=== PATIENT | female | born 1945 | race Two or more races ===

== ENCOUNTER 2021-05-16 22:13 | Inpatient (IN) | payer MEDICARE, OTHER ==
[~2021-05-16] VITALS: Ht 149.9 cm; Wt 37.2 kg
--- NOTE | 2021-05-16 22:20 | NUR ---
PT BIBRA C/O SOB. PER EMS, PT HAS HAD SOB FOR YEARS, BUT TODAY IS WORSE. PT AAOX4 BREATHING QUICKLY WITH MILD DISRESS. PT SATURATING 100% ON 10L NRB. UPON ASSESSMENT, PT HAS LARGE HERNIA ON RT SIDE ABD. PT SKIN WARM AND DRY. 18G RT FA INITIATED BY EMS, BLOOD OBTAINED AND SENT TO LAB. PT ATTACHED TO MONITOR AND POX. PT GIVEN BLANKET AND CALL LIGHT WITHIN REACH
[2021-05-16] MEDS ORDERED: PIPERACILLIN /TAZOBACTAM 3.375 G VIAL IV ONE (23:41)
[2021-05-16 23:50] LABS: BASOPHILS % (AUTO) 0.3 % (0.0-2.0); HEMATOCRIT 34 % (33-45); HEMOGLOBIN 9.9 g/dL (11.5-14.8); LYMPHOCYTES # (AUTO) 1.2 K/uL (0.8-4.8); LYMPHOCYTES % (AUTO) 9.7 % (20.0-44.0); MEAN CORPUSCULAR HGB CONC 29 g/dl (31.0-36.0); MEAN CORPUSCULAR VOLUME 78 fL (82-100); MONOCYTES % (AUTO) 7.7 % (2.0-12.0); NEUTROPHILS # (AUTO) 10.4 K/uL (1.8-8.9); NEUTROPHILS % (AUTO) 81.3 % (43.0-81.0); PLATELET COUNT (AUTO) 463 K/uL (150-450); WHITE BLOOD COUNT (AUTO) 12.8 K/uL (4.3-11.0)
--- NOTE | 2021-05-16 23:50 | NUR ---
URINE SENT TO LAB
[2021-05-17] MEDS ORDERED: IV LR 1000 ML 1,000 ML BAG IV ONE
--- NOTE | 2021-05-17 00:05 | NUR ---
ABG RESULTS ON NASAL CANNULA 6LPM O2 PH 7.41 CO2 41.9 PO2 98.7 HCO3 26.1 BE 1.4 COPY OF ABG RESULTS PLACED IN PHYSICAL CHART.
--- NOTE | 2021-05-17 00:10 | NUR ---
COVID SWABS SENT TO LAB
--- NOTE | 2021-05-17 00:14 | NUR ---
XRAY AT BEDSIDE
[2021-05-17 00:31] LABS: BILIRUBIN,URINE NEGATIVE (NEGATIVE); COLOR,URINE YELLOW (YELLOW); LEUKOCYTE ESTERASE ,URINE NEGATIVE (NEGATIVE); NITRITE, URINE NEGATIVE (NEGATIVE); PH,URINE 5.5 (5.0-8.0); PROTEIN,URINE NEGATIVE (NEGATIVE); UGLUCOSE NEGATIVE (NEGATIVE); UROBILINOGEN,URINE 0.2 EU/dL (0.2)
[2021-05-17 00:34] LABS: CALCIUM, SERUM 9.9 mg/dL (8.5-10.1); CARBON DIOXIDE 24 mmol/L (21-32); CHLORIDE 103 mmol/L (98-107); CREATININE 0.5 mg/dL (0.6-1.3); GLUCOSE 190 mg/dL (74-106); POTASSIUM 4.3 mmol/L (3.5-5.1); SODIUM SERUM 139 mmol/L (136-145); UREA NITROGEN, BLOOD 16 mg/dL (7-18)
--- NOTE | 2021-05-17 00:46 | NUR ---
[facility]SA SWAB COLLECTED AND SENT TO LAB. PATIENT'S BELONGINGS LIST DONE.
[2021-05-17 00:49] LABS: ALANINE AMINOTRANSFERASE 14 U/L (12-78); ALBUMIN 2.8 g/dL (3.4-5.0); ALKALINE PHOSPHATASE 130 U/L (46-116); ASPARTATE AMINOTRANSFERASE 23 U/L (15-37); BILIRUBIN,DIRECT 0.1 mg/dL (0.0-0.2); BILIRUBIN,TOTAL 0.2 mg/dL (0.2-1.0); TOTAL PROTEIN, SERUM 7.7 g/dL (6.4-8.2)
[2021-05-17] MEDS ORDERED: IOHEXOL-350 100 ML VIAL IV ONE (02:09)
[2021-05-17] MEDS ORDERED: IV NS 0.9% 250 ML IV ONE (02:09)
--- NOTE | 2021-05-17 02:09 | NUR ---
MD VERBAL ORDER 2MG MORPHINE IVP
[2021-05-17] MEDS ORDERED: MORPHINE SULFATE INJ 2 MG/ML DISP.SYRIN ONE ×2 (02:10→03:57)
--- NOTE | 2021-05-17 02:50 | NUR ---
RETURNED FROM CT
[2021-05-17] MEDS ORDERED: MORPHINE SULFATE INJ 2 MG/ML DISP.SYRIN IV ONE (03:00)
--- NOTE | 2021-05-17 03:50 | NUR ---
CALLED [facility] TO VERIFY MEDICATIONS.
--- NOTE | 2021-05-17 03:50 | NUR ---
PER MORTGAGE LOAN REVIEWER ANASTASIA, OK TO GIVE PRN PAIN MEDS
[2021-05-17] MEDS ORDERED: ONDANSETRON HCL/PF 4 MG/2 ML VIAL IVP PRN (04:00)
[2021-05-17] MEDS ORDERED: MAGNESIUM HYDROXIDE 30 ML UDC PO PRN (04:00)
[2021-05-17] MEDS: MORPHINE SULFATE INJ 2 MG/ML DISP.SYRIN IV PRN ×2 (04:00→09:24)
[2021-05-17] MEDS ORDERED: ENOXAPARIN SODIUM 30 MG/0.3 ML DISP.SYRIN SQ SCH (04:00)
[2021-05-17] MEDS ORDERED: Z GUARD REMEDY 2 OZ OINT TP PRN (04:00)
[2021-05-17] MEDS ORDERED: ENOXAPARIN SODIUM 30 MG/0.3 ML DISP.SYRIN ONE (04:01)
--- NOTE | 2021-05-17 04:25 | NUR ---
PT SITTING QUIETLY, ATTACHED TO MONITOR AND POX. VSS
--- NOTE | 2021-05-17 05:16 | NUR ---
PT CHANGED, NEEDS MET
[2021-05-17 05:23] LABS: BASOPHILS % (AUTO) 0.3 % (0.0-2.0); EOSINOPHILS % (AUTO) 0.5 % (0.0-6.0); HEMATOCRIT 33 % (33-45); HEMOGLOBIN 9.8 g/dL (11.5-14.8); LYMPHOCYTES # (AUTO) 0.9 K/uL (0.8-4.8); LYMPHOCYTES % (AUTO) 8.8 % (20.0-44.0); MEAN CORPUSCULAR HGB CONC 30 g/dl (31.0-36.0); MEAN CORPUSCULAR VOLUME 77 fL (82-100); MONOCYTES % (AUTO) 9.4 % (2.0-12.0); NEUTROPHILS # (AUTO) 8.4 K/uL (1.8-8.9); PLATELET COUNT (AUTO) 393 K/uL (150-450); RED BLOOD CELL COUNT(AUTO) 4.26 MIL/uL (4.0-5.2); WHITE BLOOD COUNT (AUTO) 10.4 K/uL (4.3-11.0)
[2021-05-17 05:29] LABS: CHOLESTEROL 128 mg/dL (<200); HDL CHOLESTEROL 43 mg/dL (40-60); LDL 70 mg/dL (0-99); TRIGLYCERIDES 78 mg/dL (30-150)
[2021-05-17 05:34] LABS: CALCIUM, SERUM 9.8 mg/dL (8.5-10.1); CARBON DIOXIDE 29 mmol/L (21-32); CHLORIDE 106 mmol/L (98-107); CREATININE 0.5 mg/dL (0.6-1.3); GLUCOSE 92 mg/dL (74-106); POTASSIUM 4.1 mmol/L (3.5-5.1); SODIUM SERUM 140 mmol/L (136-145); UREA NITROGEN, BLOOD 15 mg/dL (7-18)
--- NOTE | 2021-05-17 05:35 | NUR ---
PT GOING TO 112 TELE.
[2021-05-17 05:51] LABS: PHOSPHORUS 3.3 mg/dL (2.5-4.9)
[2021-05-17 05:58] LABS: ABG BASE EXCESS 1.4 mmol/L; ABG PH 7.405 (7.350-7.450); ABG PO2 95.9 mmHg (75.0-100.0); MetHb 0.3 % (0.0-1.5); O2Hb 96.6 % (94.0-97.0); SITE, ABG Left Brachial
[2021-05-17] MEDS ORDERED: PIPERACILLIN /TAZOBACTAM 3.375 G in IV D5W 50 ML IV ONE ×2 (06:00)
--- NOTE | 2021-05-17 06:07 | NUR ---
GAVE REPORT TO RAO TREVIZO FOR DEISI
[2021-05-17] MEDS ORDERED: PIPERACILLIN /TAZOBACTAM 3.375 G VIAL IV ONE (06:09)
--- NOTE | 2021-05-17 06:49 | NUR ---
CALLED FRIEND, DEEDEE, TO SHIPPING PROCESSOR APARTMENT KEYS. PER DEEDEE, HE WILL ARRIVE AROUND 0900
--- NOTE | 2021-05-17 06:50 | NUR ---
FULFILLMENT MAIL CLERK NOTES, RECEIVED 79 YO FEMALE ADMITTED FROM ER DEPARTMENT VIA STRETCHER IN COMPANY OF 2 NURSES, UNDER MEDICAL SERVICES OF DR ANASTASIA FLEMING DNP, WITH ADMITTING DX ACUTE HYPOXIC RESPIRATORY FAILURE, ON 6LPM VIA CO 02 100%, 98.7, 115/68, 80, 24, NO SOB/ACUTE DISTRESS, IV SITE IN RIGHT FA 18G PATENT AND INTACT, VOID UPON ADMISSION, NOTED WITH A BIG ABDOMINAL HERNIA, WILL ENDORSE CONTINUITY OF CARE TO ONCOMING NURSE.
--- NOTE | 2021-05-17 07:30 | NUR ---
RN NOTE PATIENT OBSERVED IN AWAKE, ALERT AND ORIENTED X4, ABLE TO VERBALIZE NEEDS, ON O2 VIA NC @ 6LPM, O2 SAT 100% TOLERATING WELL, BREATHING EVEN AND UNLABORED, ON TELE MONITOR SR NO COMPLAINS OF CHEST PAIN, CONTINENT ON BOWEL AND BLADDER, WITH RIGHT FORE ARM GAUGE 18 PATENT INFUSING WELL, WILL MONITOR AM LABS, SAFETY MEASURES OBSERVED, CALL LIGHT WITHIN REACH, BED WHEELS LOCK, WILL CONTINUE PLAN OF CARE.
[2021-05-17 08:00] VITALS: BP 124/93
[2021-05-17] MEDS: PANTOPRAZOLE 40 MG TABLET.DR PO SCH (08:12)
[2021-05-17] MEDS: ALBUTEROL HALF STRENGTH 1.25 MG/3 ML VIAL.NEB NEB SCH ×5 (10:00→23:30)
--- NOTE | 2021-05-17 10:00 | NUR ---
RN NOTE PATIENT SEEN BY DR. ROJAS, UPDATED MD REGARDING PATIENT CURRENT CONDITION.
[2021-05-17] MEDS: IPRATROPIUM NEB FS 0.5 MG/2.5 ML AMPUL.NEB NEB SCH ×4 (11:06→23:30)
[2021-05-17 12:00] VITALS: BP 125/71
--- NOTE | 2021-05-17 12:30 | NUR ---
RN NOTE PATIENT SEEN BY DR. SIMENTAL, UPDATED REGARDING PATIENT CURRENT CONDITION.
[2021-05-17] MEDS: ZOSYN IVPB 3.375 G in IV D5W 50ml IV SCH ×3 (14:11→23:57)
--- NOTE | 2021-05-17 14:12 | NUR ---
RN NOTE ADMINISTERED ZOSYN 3.375G AT 1300, PHARMACIST BJORN NOTIFIED
--- NOTE | 2021-05-17 15:21 | NUR ---
RN NOTES PT A/O X4, CONSENTS SIGNED FOR ULTRASOUND GUIDED THORACENTESIS
[2021-05-17 16:00] VITALS: BP 111/59
--- NOTE | 2021-05-17 18:29 | NUR ---
RN NOTE PATIENT OBSERVED IN AWAKE, ALERT AND ORIENTED X4, ABLE TO VERBALIZE NEEDS, ON O2 VIA NC @ 6LPM, O2 SAT 100% TOLERATING WELL, BREATHING EVEN AND UNLABORED, ON TELE MONITOR SR NO COMPLAINS OF CHEST PAIN, CONTINENT ON BOWEL AND BLADDER, WITH RIGHT FORE ARM GAUGE 18 PATENT INFUSING WELL, CONSENT SIGNED FOR US GUIDED THORACENTHESIS, ON IV ATB NO ASE NOTED, HOLD HEPARIN ORDERED FOR PROCEDURE TOMORROW AM, CONTINUE O2 SUPPLEMNTATION. WILL MONITOR AM LABS, SAFETY MEASURES OBSERVED, CALL LIGHT WITHIN REACH, BED WHEELS LOCK, WILL CONTINUE PLAN OF CARE. WILL ENDORSE TO NOC SHIFT.
[2021-05-17 20:00] VITALS: BP 95/53
--- NOTE | 2021-05-17 20:05 | NUR ---
RT notes HHN TX not given due to pending Covid PRC results. Pt SpO2 99% on 6L O2. Will cont to monitor.
--- NOTE | 2021-05-17 21:00 | NUR ---
TRAINING AND DEVELOPMENT COORDINATOR OPENING NOTES: HUMIDIFIER IMPLEMENTED ONTO NC, TITRATED DOWN TO 4L, PATIENT SATURATION 100%.
--- NOTE | 2021-05-17 22:38 | NUR ---
LOGISTICIAN OPENING NOTES: RECEIVED PATIENT FROM DAY SHIFT, PATIENT IN BED, BED LOCKED AND IN LOWEST POSITION, PATIENT A/O X3, CALL LIGHT WITHIN REACH, SIDE RAILS UP X2, NO SIGNS OF DISTRESS, NO SOB, PATIENT ON 6L NC, HUMIDIFIER IMPLEMENTED. WILL CONTINUE TO MONITOR AND IMPLEMENT NURSING INTERVENTIONS APPROPRIATE. Addendum: 05/17/21 at 2241 by MONISHA MARTINEZ RN TIME WAS 1929 WHEN PATIENT WAS RECEIVED BY DAY SHIFT.
[2021-05-18] VITALS: BP 89/52
--- NOTE | 2021-05-18 01:34 | NUR ---
CONTACT LENS FITTER NOTES: PATIENT REPOSITIONED AT 0130 AND MEPILEX APPLIED TO SACRAL REDDENED AREA.
--- NOTE | 2021-05-18 01:35 | NUR ---
DAIRY FEED WORKER NOTES: PATIENT LINEN AND GOWN CHANGE AFTER CLEANING/BED BATH.
[2021-05-18] MEDS: IPRATROPIUM NEB FS 0.5 MG/2.5 ML AMPUL.NEB NEB SCH ×6 (03:28→22:58)
[2021-05-18] MEDS: ALBUTEROL HALF STRENGTH 1.25 MG/3 ML VIAL.NEB NEB SCH ×6 (03:28→22:58)
[2021-05-18 04:00] VITALS: BP 91/54
[2021-05-18] MEDS: ZOSYN IVPB 3.375 G in IV D5W 50ml IV SCH ×3 (05:00→17:08)
[2021-05-18] MEDS: ACETAMINOPHEN 325 MG TABLET PO PRN (05:46)
--- NOTE | 2021-05-18 06:08 | NUR ---
COTTAGE SUPERVISOR CLOSING NOTES: PATIENT IN BED, RESTING AND SLEEPING WELL, BLOOD PRESSURE 105/54 AT 0530, TEMPERATURE WNL, RR WNL, HR WNL, PATIENT COMPLAINS OF PAIN, HELD MORPHINE BUT GAVE TYLENOL INSTEAD, 650MG PO, IV SITE PATENT AND INTACT, PATIENT HAD TWO BM, TWO DIAPER CHANGES, BED LOCKED AND AT LOWEST POSITION, NC AT 3L WITH HUMIDIFIER, ZOSYN ADMINISTERED AT 0000 AND 0500, PATIENT SHOWS NO SOB OR DISTRESS, SIDE RAILS UP X2, CALL LIGHT WITHIN REACH, WILL CONTINUE TO MONITOR AND ENDORSE TO MORNING SHIFT NURSE.
--- NOTE | 2021-05-18 07:00 | NUR ---
RT Treatment not given due to pending COVID-19 results
--- NOTE | 2021-05-18 07:30 | NUR ---
RN NOTE RECEIVED PT ON BED HOB ELEVATED. NO SOB ON 3LPM O2 SAT 99%. A/A/OX4. NO PAIN NOTED. SR ON TELE MONITOR. TOLERATING SOFT DIET EATING WELL. RFA IV FLUSHES WELL. SCHEDULED FOR THORACENTESIS TODAY. SAFETY MEASURES OBSERVED. CALL LIGHT PLACED WITHIN REACH. WILL CONTINUE TO MONITOR.
[2021-05-18 07:41] LABS: BASOPHILS % (AUTO) 0.4 % (0.0-2.0); EOSINOPHILS % (AUTO) 2.7 % (0.0-6.0); HEMATOCRIT 28 % (33-45); HEMOGLOBIN 8.5 g/dL (11.5-14.8); LYMPHOCYTES # (AUTO) 0.8 K/uL (0.8-4.8); LYMPHOCYTES % (AUTO) 9.9 % (20.0-44.0); MEAN CORPUSCULAR HGB CONC 31 g/dl (31.0-36.0); MEAN CORPUSCULAR VOLUME 77 fL (82-100); MONOCYTES # (AUTO) 1.1 K/uL (0.1-1.30); MONOCYTES % (AUTO) 12.5 % (2.0-12.0); NEUTROPHILS # (AUTO) 6.3 K/uL (1.8-8.9); NEUTROPHILS % (AUTO) 74.5 % (43.0-81.0); PLATELET COUNT (AUTO) 326 K/uL (150-450); RED BLOOD CELL COUNT(AUTO) 3.64 MIL/uL (4.0-5.2); WHITE BLOOD COUNT (AUTO) 8.4 K/uL (4.3-11.0)
[2021-05-18] MEDS: PANTOPRAZOLE 40 MG TABLET.DR PO SCH (07:48)
[2021-05-18 07:49] LABS: ALANINE AMINOTRANSFERASE 9 U/L (12-78); ALBUMIN 2.4 g/dL (3.4-5.0); ALKALINE PHOSPHATASE 101 U/L (46-116); ASPARTATE AMINOTRANSFERASE 14 U/L (15-37); BILIRUBIN,TOTAL 0.4 mg/dL (0.2-1.0); CALCIUM, SERUM 9.6 mg/dL (8.5-10.1); CARBON DIOXIDE 29 mmol/L (21-32); CHLORIDE 107 mmol/L (98-107); CREATININE 0.5 mg/dL (0.6-1.3); GLUCOSE 82 mg/dL (74-106); MAGNESIUM 2.1 mg/dL (1.8-2.4); PHOSPHORUS 3.3 mg/dL (2.5-4.9); POTASSIUM 3.7 mmol/L (3.5-5.1); SODIUM SERUM 142 mmol/L (136-145); TOTAL PROTEIN, SERUM 6.6 g/dL (6.4-8.2); UREA NITROGEN, BLOOD 11 mg/dL (7-18)
[2021-05-18 08:00] VITALS: BP 99/57
[2021-05-18] MEDS: MORPHINE SULFATE INJ 2 MG/ML DISP.SYRIN IV PRN ×3 (08:56→21:42)
[2021-05-18] MEDS: ENSURE ENLIVE CHOC 237 ML CAN PO SCH ×3 (09:30→17:07)
--- NOTE | 2021-05-18 09:30 | NUR ---
RN NOTE RIGHT LUNG THORACENTESIS SPECIMEN FORWARDED TO LABORATORY
[2021-05-18 12:00] VITALS: BP 103/42
[2021-05-18 16:00] VITALS: BP 96/45
--- NOTE | 2021-05-18 16:34 | NUR ---
RN NOTE PER DR. ROJAS RIGHT CHEST TUBE INSERTION PIGTAIL CATHETER FOR TOMORROW AM. RADIOLOGY CALLED ORDERED TALKED TO THOR RE: RIGHT CHEST TUBE INSERTION WITH PIGTAIL CATHETER. PT ALERT, ORIENTED X4. SIGNED CONSENT FOR RIGHT CHEST TUBE INSERTION.
--- NOTE | 2021-05-18 18:30 | NUR ---
RN NOTE CONSENT FOR MODERATE SEDATION OBTAINED, AND FOR CT PERC DRAINAGE ABSCESS WITH CATHETER.
--- NOTE | 2021-05-18 18:58 | NUR ---
RN NOTE RECEIVED PT ON BED HOB ELEVATED. NO SOB ON 3LPM O2. A/A/OX4. NO PAIN NOTED. SR ON TELE MONITOR. TOLERATING SOFT DIET EATING WELL. RFA IV FLUSHES WELL. S/P THORACENTESIS TODAY WITH 650 OUTPUT. SCHEDULED FOR RIGHT CHEST TUBE INSERTION TOMORROW, CONSENT SIGNED. NPO POST MIDNIGHT INSTRUCTED.CALL LIGHT PLACED WITHIN REACH. SAFETY MEASURES OBSERVED. WILL ENDORSE TO NOC RN
[2021-05-18 20:00] VITALS: BP 102/53
--- NOTE | 2021-05-18 20:00 | NUR ---
RN OPENING NOTE: RECEIVED RESIDENT IN BED ALERT AND VERNALLY RESPONSIVE. ON 3l/MIN VIA N/C, O2 SAT 96%. NO SOB OR CHEST CONGESTION NOTED. BREATHING EVEN AND UNLABORED. NO FACIAL GRIMACING NOTED. NO S/S OF ACUTE RESPIRATORY DISTRESS. RESIDENT WILL BE NPO AFTER MIDNIGHT FOR CHEST TUBE PLACEMENT TOMORROW. BOTH SIDE RAILS UP TO PREVENT INJURY. ON LOW POSITION AND LOCKED. CALL LIGHT WITH IN REACH. WILL CONTINUE TO MONITOR
--- NOTE | 2021-05-18 20:05 | NUR ---
RT HHN tx not given due to pending PCR, no SOB or respiratory distress noted.
--- NOTE | 2021-05-18 22:30 | NUR ---
RN NOTES: PATIENT C/O 9/10 PAIN SCALE AROUND CHEST AREA. MORPHINE 2 MG IV PUSH GIVEN AND TOLERATED WELL. NO S/S OF ACUTE RESPIRATORY DISTRESS.
[2021-05-19] VITALS: BP 99/51
[2021-05-19] MEDS: ZOSYN IVPB 3.375 G in IV D5W 50ml IV SCH ×5 (00:39→23:11)
[2021-05-19] MEDS: ALBUTEROL HALF STRENGTH 1.25 MG/3 ML VIAL.NEB NEB SCH ×6 (03:20→22:48)
[2021-05-19] MEDS: IPRATROPIUM NEB FS 0.5 MG/2.5 ML AMPUL.NEB NEB SCH ×6 (03:20→22:48)
[2021-05-19 04:00] VITALS: BP 96/47
[2021-05-19] MEDS: MORPHINE SULFATE INJ 2 MG/ML DISP.SYRIN IV PRN ×4 (04:05→20:41)
--- NOTE | 2021-05-19 07:25 | NUR ---
RN CLOSING NOTES: RESIDENT IN BED ALERT AND VERBALLY RESPONSIVE. NO ACUTE RESPIRATORY DISTRESS. C/O PAIN AROUND CHEST AREA. MORPHINE GIVEN AT 0405 AND PATIENT TOLERATED WELL. NPO SINCE MIDNIGHT. WILL ENDORSE TO MORNING SHIFT FOR ANY CHANGES
[2021-05-19] MEDS: ENSURE ENLIVE CHOC 237 ML CAN PO SCH ×3 (07:28→17:34)
--- NOTE | 2021-05-19 07:34 | NUR ---
ROLLING MILL OPERATOR OPENING NOTE: RECEIVED PT IN BED ALERT AND RESPONSIVE. ON 3L N/C, O2 SAT 99%. NO SOB OR CHEST CONGESTION NOTED. BREATHING EVEN AND UNLABORED. NO FACIAL GRIMACING NOTED. NO S/S OF ACUTE RESPIRATORY DISTRESS. PT IS NPO FOR CHEST TUBE PLACEMENT. ALL SAFETY MEASURES RENDERED. SIDE RAILS UP X 3, BED IN LOWEST LOCKED POSITION, CALL LIGHT WITHIN REACH.
[2021-05-19 07:46] LABS: BASOPHILS % (AUTO) 0.4 % (0.0-2.0); EOSINOPHILS % (AUTO) 3.3 % (0.0-6.0); HEMATOCRIT 28 % (33-45); HEMOGLOBIN 8.5 g/dL (11.5-14.8); LYMPHOCYTES # (AUTO) 0.9 K/uL (0.8-4.8); LYMPHOCYTES % (AUTO) 10.9 % (20.0-44.0); MEAN CORPUSCULAR HGB CONC 30 g/dl (31.0-36.0); MEAN CORPUSCULAR VOLUME 76 fL (82-100); MONOCYTES % (AUTO) 11.5 % (2.0-12.0); NEUTROPHILS # (AUTO) 6.2 K/uL (1.8-8.9); NEUTROPHILS % (AUTO) 73.9 % (43.0-81.0); PLATELET COUNT (AUTO) 346 K/uL (150-450); RED BLOOD CELL COUNT(AUTO) 3.68 MIL/uL (4.0-5.2); WHITE BLOOD COUNT (AUTO) 8.4 K/uL (4.3-11.0)
[2021-05-19 08:00] VITALS: BP 102/60
[2021-05-19] MEDS: PANTOPRAZOLE 40 MG TABLET.DR PO SCH (08:15)
[2021-05-19 08:23] LABS: CALCIUM, SERUM 9.9 mg/dL (8.5-10.1); CARBON DIOXIDE 29 mmol/L (21-32); CHLORIDE 106 mmol/L (98-107); CREATININE 0.5 mg/dL (0.6-1.3); GLUCOSE 100 mg/dL (74-106); MAGNESIUM 2.1 mg/dL (1.8-2.4); PHOSPHORUS 3.1 mg/dL (2.5-4.9); POTASSIUM 3.9 mmol/L (3.5-5.1); SODIUM SERUM 142 mmol/L (136-145); UREA NITROGEN, BLOOD 14 mg/dL (7-18)
[2021-05-19 12:00] VITALS: BP 100/62
--- NOTE | 2021-05-19 13:57 | NUR ---
RN NOTES; PT LEFT FOR PROCEDURE WITH RADIOLOGY. ALL PAPERWORK SIGNED. VITALS WNL. PT LEFT IN STABLE CONDITION.
[2021-05-19] MEDS ORDERED: NALOXONE PREFILLED SYRINGE 2 MG/2 ML SYRINGE IV ONE (14:00)
[2021-05-19] MEDS ORDERED: MIDAZOLAM HCL 5MG/ML VIAL 25 MG/5 ML VIAL IV ONE (14:00)
[2021-05-19] MEDS ORDERED: FENTANYL PF 250MCG/5ML AMPUL IV ONE (14:00)
[2021-05-19 16:00] VITALS: BP 96/47
--- NOTE | 2021-05-19 18:41 | NUR ---
PIANO MOVER CLOSING NOTES PT. IS RESTING IN SUPINE POSITION ON LEFT SIDE. PT HAS NEW CHEST TUBE WITH R PIGTAIL CATHETER. PT ON SOFT DIET. ALL VITAL SIGNS ARE WITHIN NORMAL LIMITS. PT'S NEEDS WERE MET IN TIMELY FASHION. WILL ENDORSE TO INSULATION BOARD CALENDER OPERATOR NURSE. ALL SAFETY MEASURES ARE IN PLACE WITH BED IN LOWEST LOCKED POSITION AND CALL LIGHT WITHIN REACH.
--- NOTE | 2021-05-19 19:48 | NUR ---
HHN TX NOT GIVEN DUE TO PCR TEST PENDING.
[2021-05-19 20:00] VITALS: BP 103/66
--- NOTE | 2021-05-19 20:15 | NUR ---
RN NOTE RECEIVED PT IN BED, ALERT AND ORIENTED. PT COMPLAINED OF PAIN ON CHEST AREA WITH BREATHING. NO DISTRESS NOTED. PT WITH CHEST TUBE CONNECTED TO LOW INTERMITTENT SUCTION WITH SANGUINEOUS DRAINAGE. R ARM IV PATENT AND INTACT. ALL SAFETY MEASURES IN PLACE. WILL CONTINUE TO MONITOR.
[2021-05-20] VITALS: BP 95/55
[2021-05-20] MEDS: MORPHINE SULFATE INJ 2 MG/ML DISP.SYRIN IV PRN ×4 (02:05→20:31)
[2021-05-20] MEDS: ALBUTEROL HALF STRENGTH 1.25 MG/3 ML VIAL.NEB NEB SCH ×7 (03:30→23:51)
[2021-05-20] MEDS: IPRATROPIUM NEB FS 0.5 MG/2.5 ML AMPUL.NEB NEB SCH ×7 (03:30→23:51)
[2021-05-20 04:00] VITALS: BP 100/49
[2021-05-20] MEDS: ZOSYN IVPB 3.375 G in IV D5W 50ml IV SCH ×4 (05:09→23:55)
--- NOTE | 2021-05-20 07:05 | NUR ---
RN NOTE PT ABLE TO MAKE NEEDS KNOWN. NO CHANGES IN LOC NOTED. PT ABLE TO TOLERATE O2 AT 3L. PT WITH 700CC SANGUINEOUS OUTPUT FROM CHEST TUBE. NO DISTRESS NOTED. ALL SAFETY MEASURES MAINTAINED, ALL NEEDS ATTENDED. PT REFUSED TO HAVE TH DVT PUMP, EXPLAINED RISKS AND BENEFITS. PT VERBALIZES UNDERSTANDING. ENDORSED TO NEXT SHIFT NURSE FOR DEISI.
--- NOTE | 2021-05-20 07:10 | NUR ---
RN OPENING NOTES; RECEIVED PT AWAKE IN L SIDE LYING POS. PT A/OX4, NO SOB OR DISTRESS NOTED. PT HAS NO C/O PAIN AT THIS TIME. CHEST TUBE NOTED WITH DRAINAGE. SAFETY MEASURES RENDERED, BED IN LOWEST POS. LOCKED WITH CALL LIGHT WITHIN REACH. WILL CONTINUE TO MONITOR.
[2021-05-20] MEDS: PANTOPRAZOLE 40 MG TABLET.DR PO SCH (07:53)
[2021-05-20 08:00] VITALS: BP 98/58
[2021-05-20] MEDS: ENSURE ENLIVE CHOC 237 ML CAN PO SCH ×3 (08:00→17:08)
[2021-05-20 08:05] LABS: BASOPHILS % (AUTO) 0.3 % (0.0-2.0); CALCIUM, SERUM 9.8 mg/dL (8.5-10.1); CARBON DIOXIDE 29 mmol/L (21-32); CHLORIDE 106 mmol/L (98-107); CREATININE 0.5 mg/dL (0.6-1.3); EOSINOPHILS % (AUTO) 1.5 % (0.0-6.0); GLUCOSE 105 mg/dL (74-106); HEMATOCRIT 30 % (33-45); HEMOGLOBIN 8.7 g/dL (11.5-14.8); LYMPHOCYTES # (AUTO) 0.7 K/uL (0.8-4.8); LYMPHOCYTES % (AUTO) 8.6 % (20.0-44.0); MAGNESIUM 2.2 mg/dL (1.8-2.4); MEAN CORPUSCULAR HGB CONC 29 g/dl (31.0-36.0); MEAN CORPUSCULAR VOLUME 77 fL (82-100); NEUTROPHILS # (AUTO) 6.6 K/uL (1.8-8.9); NEUTROPHILS % (AUTO) 77.6 % (43.0-81.0); PLATELET COUNT (AUTO) 344 K/uL (150-450); POTASSIUM 3.8 mmol/L (3.5-5.1); RED BLOOD CELL COUNT(AUTO) 3.87 MIL/uL (4.0-5.2); SODIUM SERUM 141 mmol/L (136-145); UREA NITROGEN, BLOOD 13 mg/dL (7-18); WHITE BLOOD COUNT (AUTO) 8.5 K/uL (4.3-11.0)
[2021-05-20 12:00] VITALS: BP 110/64
[2021-05-20 16:00] VITALS: BP 98/63
--- NOTE | 2021-05-20 18:56 | NUR ---
RN CLOSING NOTES; PT IN BED IN SUPINE POS. PT A/OX4, NO SOB NOTED, NOT C/O SOB OR DISTRESS AT THIS TIME. PT ON 02 AT 3LPM, WITH 02 SAT AT 98%. CONTINUE DRAINAGE WITH R SIDE PIGTAIL CATHETER. CHEST X RAY ORDERED. WAITING FOR PLEURAL FLUID CYTOLOGY. ALL MEDICATIONS GIVEN AND TOLERATED WELL. PT KEPT CLEAN, DRY AND COMFORTABLE. ALL SAFETY MEASURES RENDERED, BED IN LOWEST POS. LOCKED, SIDE RAILS X3 UP, WITH CALL LIGHT WITHIN REACH. ENDORSED TO BULB GROWER RN, IN STABLE CONDITION.
--- NOTE | 2021-05-20 19:10 | NUR ---
RN NOTES RECEIVED REPORT FROM MORNING NURSE. PATIENT A/O X4. WITH CHEST TUBE CONNECTED TO L INTERMITTENT SUCTION DRAINING SANGUINOUS DRAINAGE. PATIENT COMPLAINTS OF PAIN.WITH IV ACCESS ON L ARM PATENT FLUSHES WELL. WITH OXYGEN INHALATION AT 3 LPM VIA NASAL CANULA. ALL SAFETY MEASURES IN PLACE, HOB ELEVATED, BED ON LOWEST POSITION AND LOCKED. CALL LIGHT WITHIN REACH. WILL CONTINUE TO MONITOR.
[2021-05-20 20:00] VITALS: BP 130/77
[2021-05-21] VITALS: BP 95/50
[2021-05-21] MEDS: MORPHINE SULFATE INJ 2 MG/ML DISP.SYRIN IV PRN ×6 (00:27→20:59)
[2021-05-21] MEDS: IPRATROPIUM NEB FS 0.5 MG/2.5 ML AMPUL.NEB NEB SCH ×6 (03:30→23:13)
[2021-05-21] MEDS: ALBUTEROL HALF STRENGTH 1.25 MG/3 ML VIAL.NEB NEB SCH ×6 (03:30→23:13)
[2021-05-21 04:00] VITALS: BP 100/62
[2021-05-21] MEDS: ZOSYN IVPB 3.375 G in IV D5W 50ml IV SCH ×4 (05:51→23:19)
--- NOTE | 2021-05-21 06:58 | NUR ---
RN NOTES PATIENT REMAINS STABLE THE WHOLE SHIFT, NO SOB NO DISTRESS. WITH R CHEST TUBE INTACT DRAINING WITH SANGUINEOUS FLUID. ALL DUE MEDS GIVEN ORDERED. ALL SAFETY MEASURES IN PLACE, HOB ELEVATED, CALL LIGHT WITHIN REACH. KEPT CLEAN AND DRY AT ALL TIMES. ENDORSED.
--- NOTE | 2021-05-21 07:00 | NUR ---
RN NOTES; RECEIVED PT ON BED, A/OX4, NO SOB OR DISTRESS NOTED. PT HAS NO C/O PAIN AT THIS TIME. CHEST TUBE NOTED WITH DRAINAGE. SAFETY MEASURES RENDERED, BED IN LOWEST POS. LOCKED WITH CALL LIGHT WITHIN REACH. WILL CONTINUE TO MONITOR CLOSELY.
[2021-05-21 07:04] LABS: BASOPHILS % (AUTO) 0.4 % (0.0-2.0); HEMATOCRIT 29 % (33-45); HEMOGLOBIN 8.7 g/dL (11.5-14.8); LYMPHOCYTES # (AUTO) 0.7 K/uL (0.8-4.8); LYMPHOCYTES % (AUTO) 7.2 % (20.0-44.0); MEAN CORPUSCULAR HGB CONC 30 g/dl (31.0-36.0); MEAN CORPUSCULAR VOLUME 78 fL (82-100); MONOCYTES % (AUTO) 10.5 % (2.0-12.0); NEUTROPHILS # (AUTO) 7.7 K/uL (1.8-8.9); NEUTROPHILS % (AUTO) 79.9 % (43.0-81.0); PLATELET COUNT (AUTO) 324 K/uL (150-450); RED BLOOD CELL COUNT(AUTO) 3.69 MIL/uL (4.0-5.2); WHITE BLOOD COUNT (AUTO) 9.6 K/uL (4.3-11.0)
[2021-05-21 07:21] LABS: CALCIUM, SERUM 10.3 mg/dL (8.5-10.1); CREATININE 0.6 mg/dL (0.6-1.3); MAGNESIUM 2.4 mg/dL (1.8-2.4); PHOSPHORUS 2.6 mg/dL (2.5-4.9)
[2021-05-21 08:00] VITALS: BP 90/44
[2021-05-21] MEDS: PANTOPRAZOLE 40 MG TABLET.DR PO SCH (08:25)
[2021-05-21] MEDS: ENSURE ENLIVE CHOC 237 ML CAN PO SCH ×3 (08:27→16:38)
[2021-05-21 12:00] VITALS: BP 101/48
--- NOTE | 2021-05-21 12:00 | NUR ---
RN NOTES CHEST TUBE INTACT, PT REQUESTING PAIN MED Q4 HOURS , CONTINUE PAIN MANAGEMENT.
[2021-05-21 16:00] VITALS: BP 96/52
--- NOTE | 2021-05-21 18:00 | NUR ---
RN NOTES NO SIGNIFICANT CHANGES NOTED ONT THIS SHIFT, 600 CC SEROSANGUINEOUS DRAINING OBTAINED FROM CHEST TUBE, DR AGUDELO NOTIFED,WILL ENDORSE TO FUSION JUNCTURE GRINDER NURSE FOR CONTINUITY OF CARE .
--- NOTE | 2021-05-21 19:25 | NUR ---
RN OPENING NOTE PT ON 3L OF O2 VIA NC, A/O X4, ON TELE MONITOR, NSR WITH ST ELEVATION. PT RESTING COMFORTABLY. NO DISTRESS NOTED. RIGHT UPPER CHEST TUBE/PIGTAIL CATH NOTED IN PT CONNECTED TO LOW INT SUCTION. NO SIGNS OF LEAK. PT IV SITE, INTACT, NO S.S OF INFILTRATION, WILL CONT TO MONITOR CLOSELY THROUGHOUT SHIFT. SAFETY MEASURES IN PLACE. HOB ELEVATED, SIDE RAILS UP X2 BED LOCKED IN LOWEST POSTION BED ALARM ON. CALL LIGHT WITHIN REACH, ALL NEEDS ATTENDED WILL CONT TO MONITOR.
[2021-05-21 20:00] VITALS: BP 103/57
[2021-05-22] VITALS: BP 90/47
[2021-05-22] MEDS: MORPHINE SULFATE INJ 2 MG/ML DISP.SYRIN IV PRN ×5 (01:00→20:56)
[2021-05-22] MEDS: ALBUTEROL HALF STRENGTH 1.25 MG/3 ML VIAL.NEB NEB SCH ×6 (03:29→22:49)
[2021-05-22] MEDS: IPRATROPIUM NEB FS 0.5 MG/2.5 ML AMPUL.NEB NEB SCH ×6 (03:29→22:49)
[2021-05-22 04:00] VITALS: BP 98/44
[2021-05-22] MEDS: ZOSYN IVPB 3.375 G in IV D5W 50ml IV SCH ×4 (05:24→23:10)
[2021-05-22 07:01] LABS: BASOPHILS % (AUTO) 0.6 % (0.0-2.0); EOSINOPHILS % (AUTO) 2.4 % (0.0-6.0); HEMATOCRIT 29 % (33-45); HEMOGLOBIN 8.6 g/dL (11.5-14.8); LYMPHOCYTES # (AUTO) 0.5 K/uL (0.8-4.8); LYMPHOCYTES % (AUTO) 6.8 % (20.0-44.0); MEAN CORPUSCULAR HGB CONC 29 g/dl (31.0-36.0); MEAN CORPUSCULAR VOLUME 78 fL (82-100); MONOCYTES # (AUTO) 0.8 K/uL (0.1-1.30); MONOCYTES % (AUTO) 10.6 % (2.0-12.0); NEUTROPHILS # (AUTO) 6.1 K/uL (1.8-8.9); NEUTROPHILS % (AUTO) 79.6 % (43.0-81.0); PLATELET COUNT (AUTO) 320 K/uL (150-450); RED BLOOD CELL COUNT(AUTO) 3.77 MIL/uL (4.0-5.2); WHITE BLOOD COUNT (AUTO) 7.7 K/uL (4.3-11.0)
[2021-05-22 07:19] LABS: CALCIUM, SERUM 10.3 mg/dL (8.5-10.1); CARBON DIOXIDE 31 mmol/L (21-32); CHLORIDE 106 mmol/L (98-107); CREATININE 0.4 mg/dL (0.6-1.3); GLUCOSE 110 mg/dL (74-106); MAGNESIUM 2.2 mg/dL (1.8-2.4); POTASSIUM 3.9 mmol/L (3.5-5.1); SODIUM SERUM 142 mmol/L (136-145); UREA NITROGEN, BLOOD 15 mg/dL (7-18)
--- NOTE | 2021-05-22 07:20 | NUR ---
RN OPENING NOTES RECEIVED RESTING IN BED. ON 3L OF O2 VIA NC. NO SOB OR ANY S/S OF ACUTE RESPIRATORY DISTRESS NOTED. TELE MONITOR READING NSR WITH ST ELEVATION. RIGHT UPPER CHEST TUBE/PIGTAIL CATH NOTED CONNECTED TO LOW INT SUCTION. NO SIGNS OF LEAK. IV ACCESS ON L HAND #22 INTACT, PATENT AND FLUSHED. SAFETY MEASURES IMPLEMENTED. CALL LIGHT WITHIN REACH. BED LOCKED AND IN LOWEST POSITION WITH SIDE RAILS UP X2. HOB ELEVATED, BED ALARM ON. WILL CONTINUE TO MONITOR.
--- NOTE | 2021-05-22 07:35 | NUR ---
RN CLOSING NOTE VSS. NO DISTRESS NOTED. CHEST TUBE 200ML OUTPUT. REPORT GIVEN TO DAY SHIFT RN FOR CONTINUATION OF CARE
[2021-05-22 08:00] VITALS: BP 97/51
[2021-05-22] MEDS: PANTOPRAZOLE 40 MG TABLET.DR PO SCH (09:04)
[2021-05-22] MEDS: ENSURE ENLIVE CHOC 237 ML CAN PO SCH ×3 (09:04→17:35)
[2021-05-22 12:00] VITALS: BP 104/61
[2021-05-22 16:00] VITALS: BP 118/68
--- NOTE | 2021-05-22 19:16 | NUR ---
RT NOTE PT STATED SHE HAS ALREADY HAD 5 TX AND DOESNT WANT THE OTHER 2 FOR THE NIGHT. GABRIELA TX WELL. NO SOB OR ACUTE RESPIRATORY DISTRESS NOTED. WILL CONTINUE TO MONITOR T/O SHIFT RAO GRANDA NOTIFIED.
--- NOTE | 2021-05-22 19:31 | NUR ---
RN CLOSING NOTES NO SIGNIFICANT CHANGES THROUGHOUT THE SHIFT. ALL DUE MEDS GIVEN. NEEDS ATTENDED. KEPT CLEAN AND COMFORTABLE. SAFETY MEASURES IMPLEMENTED. ENDORSED TO NIGHT RN FOR DEISI.
[2021-05-22 20:00] VITALS: BP 101/50
--- NOTE | 2021-05-22 20:03 | NUR ---
BULLET LUBRICANT MIXER OPENING NOTES: RECEIVED PATIENT FROM DAY SHIFT, PATIENT IN BED, A/O X4, NC ON 3L, NO SIGNS OF DISTRESS, NO SOB, SIDE RAILS UP X2, BED AT LOWEST POSITION, BRAKES LOCKED AND IN PLACE, CALL LIGHT WITHIN REACH, WILL CONTINUE TO MONITOR AND ADMINISTER PLAN OF CARE AND NURSING INTERVENTIONS NECESSARY.
[2021-05-23] VITALS: BP 131/76
[2021-05-23] MEDS: MORPHINE SULFATE INJ 2 MG/ML DISP.SYRIN IV PRN ×5 (02:30→20:56)
[2021-05-23] MEDS: IPRATROPIUM NEB FS 0.5 MG/2.5 ML AMPUL.NEB NEB SCH ×6 (02:33→23:28)
[2021-05-23] MEDS: ALBUTEROL HALF STRENGTH 1.25 MG/3 ML VIAL.NEB NEB SCH ×6 (02:34→23:28)
--- NOTE | 2021-05-23 02:34 | NUR ---
RT NOTE PT ASLEEP. REFUSED LAST TWO TX. SAID SHE WANTS TO SLEEP. NO SON OR S/S OF ACUTE RESPIRATORY DISTRESS. WILL CONTINUE TO MONITOR T/O SHIFT.
[2021-05-23 04:00] VITALS: BP 100/57
[2021-05-23] MEDS: ZOSYN IVPB 3.375 G in IV D5W 50ml IV SCH ×4 (05:22→23:44)
--- NOTE | 2021-05-23 06:56 | NUR ---
APPLICATIONS SUPPORT LEAD CLOSING NOTES: PATIENT AWAKE AND ALERT, V/S WNL, NO SIGNS OF DISTRESS, NO SOB, RUNNING NC AT 3L, BED AT LOWEST POSITION, BRAKES LOCKED, CALL LIGHT WITHIN REACH, PATIENT HAS CHEST TUBE, DRAINED 400 ML THROUGHOUT THE SUBSTATION ENGINEER, WILL ENDORSE TO DAY SHIFT NURSE. WILL CONTINUE TO MONITOR UNTIL CHANGE OF SHIFT.
[2021-05-23] MEDS: PANTOPRAZOLE 40 MG TABLET.DR PO SCH (07:30)
--- NOTE | 2021-05-23 07:37 | NUR ---
PLATE FURNACE OPERATOR OPENING NOTES RECEIVED PT AWAKE ALERT IN BED RESTING IN SEMI-FOWLERS POSITION WITH NO S/SX OF RESPIRATORY DISTRESS NOTED. PT HAS A RIGHT CHEST TUBE DRAINING WITH OUTPUT MEASURED @1700ML FOR PREVIOUS SHIFT. PT HAS A LEFT HAND 22G IV SALINE LOCK, FLUSHED PATENT AND IN TACT. PT HAS NO COMPLAINTS OF PAIN AT THIS TIME AND WAS LAST MEDICATED WITH PRN MORPHINE @0300. SAFETY MEASURES IN PLACE WITH BED IN LOWEST LOCKED POSITION, SIDE RAILS UP X2, AND CALL LIGHT WITHIN REACH.
[2021-05-23 08:00] VITALS: BP 109/57
[2021-05-23] MEDS: ENSURE ENLIVE CHOC 237 ML CAN PO SCH ×3 (08:23→17:33)
[2021-05-23 12:00] VITALS: BP 105/51
[2021-05-23 12:06] LABS: BASOPHILS % (AUTO) 0.3 % (0.0-2.0); EOSINOPHILS % (AUTO) 0.8 % (0.0-6.0); HEMATOCRIT 29 % (33-45); HEMOGLOBIN 8.8 g/dL (11.5-14.8); LYMPHOCYTES # (AUTO) 0.6 K/uL (0.8-4.8); LYMPHOCYTES % (AUTO) 7.1 % (20.0-44.0); MEAN CORPUSCULAR HGB CONC 30 g/dl (31.0-36.0); MEAN CORPUSCULAR VOLUME 77 fL (82-100); MONOCYTES # (AUTO) 0.7 K/uL (0.1-1.30); MONOCYTES % (AUTO) 7.8 % (2.0-12.0); NEUTROPHILS # (AUTO) 7.5 K/uL (1.8-8.9); PLATELET COUNT (AUTO) 329 K/uL (150-450); RED BLOOD CELL COUNT(AUTO) 3.81 MIL/uL (4.0-5.2); WHITE BLOOD COUNT (AUTO) 8.9 K/uL (4.3-11.0)
[2021-05-23 12:51] LABS: CALCIUM, SERUM 10.2 mg/dL (8.5-10.1); CARBON DIOXIDE 32 mmol/L (21-32); CHLORIDE 102 mmol/L (98-107); CREATININE 0.4 mg/dL (0.6-1.3); GLUCOSE 95 mg/dL (74-106); MAGNESIUM 2.4 mg/dL (1.8-2.4); PHOSPHORUS 2.9 mg/dL (2.5-4.9); POTASSIUM 3.4 mmol/L (3.5-5.1); SODIUM SERUM 139 mmol/L (136-145); UREA NITROGEN, BLOOD 16 mg/dL (7-18)
[2021-05-23 16:00] VITALS: BP 94/52
--- NOTE | 2021-05-23 18:35 | NUR ---
IMAGING ENGINEER CLOSING NOTES PT FINISHED DINNER AND IS RESTING LEFT SIDE LYING POSITION IN SEMI-FOWLERS POSITION. PT HAS A RIGHT FOREARM 22G SL. PT HAD OUTPUT OF 890ML SEROSANGUINEOUS DRAINAGE. PT LAST MEDICATED WITH PRN MORPHINE @1646. PT KEPT CLEAN AND DRY THROUGHOUT SHIFT. SAFETY MEASURES IN PLACE WITH BED IN LOW LOCKED POSITION, SIDE RAILS UP X2, AND CALL LIGHT WITHIN REACH.
[2021-05-23 20:00] VITALS: BP 110/62
--- NOTE | 2021-05-23 20:17 | NUR ---
RT pt refused neb tx. no sob, no resp distress noted at this time. haroon lyons, notified
--- NOTE | 2021-05-23 21:30 | NUR ---
EMERGENCY ROOM ORDERLY NOTES: PATIENTS R. FOREARM #22 CAME OUT ON IT'S OWN, REPLACED WITH RT. HAND #20.
--- NOTE | 2021-05-23 23:07 | NUR ---
MOBILE QA TESTER OPENING NOTES: RECEIVED PATIENT FROM DAY SHIFT, PATIENT IN BED, AWAKE, A/O X4, NO SIGNS OF SOB, NO DISTRESS, BED AT LOWEST POSITION, LOCKED AND IN PLACE, SIDE RAILS UP X2, CALL LIGHT WITHIN REACH, NC ON 3L, SATURATING 99%. WILL CONTINUE TO MONITOR AND ADMINISTER PLAN OF CARE AND NURSING INTERVENTIONS NECESSARY.
[2021-05-24] VITALS: BP 92/47
[2021-05-24] MEDS: MORPHINE SULFATE INJ 2 MG/ML DISP.SYRIN IV PRN ×5 (01:16→22:10)
[2021-05-24] MEDS: ALBUTEROL HALF STRENGTH 1.25 MG/3 ML VIAL.NEB NEB SCH ×6 (03:24→23:30)
[2021-05-24] MEDS: IPRATROPIUM NEB FS 0.5 MG/2.5 ML AMPUL.NEB NEB SCH ×6 (03:24→23:30)
[2021-05-24 04:00] VITALS: BP 94/43
[2021-05-24] MEDS: ZOSYN IVPB 3.375 G in IV D5W 50ml IV SCH ×3 (05:11→18:33)
--- NOTE | 2021-05-24 06:37 | NUR ---
PLANNER SCHEDULER CLOSING NOTES: PATIENT IN BED, RESTING, A/O X4, R. HAND #20 PLACED DUE TO DISLODGED R. FA #22, PATENT AND INTACT. ON NC AT 3L, SATURATION 93%, MORPHINE ADMINISTERED AT 2100, 0116, AND 0600. MONITOR SHOWS SR, BED AT LOWEST POSITION, BRAKES LOCKED AND IN PLACE, SIDE RAILS UP X2, CALL LIGHT WITHIN REACH, WILL ENDORSE TO DAY SHIFT NURSE, WILL CONTINUE TO MONITOR AND IMPLEMENT NURSING INTERVENTIONS NECESSARY.
[2021-05-24 07:22] LABS: BASOPHILS % (AUTO) 0.6 % (0.0-2.0); EOSINOPHILS % (AUTO) 3.3 % (0.0-6.0); HEMATOCRIT 29 % (33-45); HEMOGLOBIN 8.9 g/dL (11.5-14.8); LYMPHOCYTES # (AUTO) 0.9 K/uL (0.8-4.8); LYMPHOCYTES % (AUTO) 12.2 % (20.0-44.0); MEAN CORPUSCULAR HGB CONC 30 g/dl (31.0-36.0); MEAN CORPUSCULAR VOLUME 77 fL (82-100); MONOCYTES % (AUTO) 13.2 % (2.0-12.0); NEUTROPHILS # (AUTO) 5.3 K/uL (1.8-8.9); NEUTROPHILS % (AUTO) 70.7 % (43.0-81.0); PLATELET COUNT (AUTO) 338 K/uL (150-450); RED BLOOD CELL COUNT(AUTO) 3.83 MIL/uL (4.0-5.2); WHITE BLOOD COUNT (AUTO) 7.5 K/uL (4.3-11.0)
--- NOTE | 2021-05-24 07:30 | NUR ---
ANIMAL HUSBANDRY PROFESSOR OPENING NOTES PT IN BED, AOX4, ON 3L O2 NASAL CANULA, SATTING AT 97%, NO SOB, NO DISTRESS, SR HR 75 ON MONITOR, DENIES PAIN/CHEST DISCOMFORT, IN SEMI-FOWLERS POSITION, RIGHT CHEST TUBE DRAINING WITH OUTPUT MEASURED @350ML FOR DIRECTOR OF DEMENTIA OPERATIONS. MARKED. RIGHT HAND 20G FLUSHES WELL, SITE CLEAR, SKIN INTACT, ON PRN PAIN MEDICATIONS.POC DISCUSSED, VERBALIZED UNDERSTANDING. SOFT DIET, BEDBOUND. INDEPENDENT OF BED MOBILITY, SAFETY MEASURES IN PLACE WITH BED IN LOWEST LOCKED POSITION, SIDE RAILS UP X2, AND CALL LIGHT WITHIN REACH. WILL CONT TO MONITOR
[2021-05-24 07:39] LABS: CALCIUM, SERUM 10.2 mg/dL (8.5-10.1); CREATININE 0.6 mg/dL (0.6-1.3); MAGNESIUM 2.3 mg/dL (1.8-2.4); POTASSIUM 4.1 mmol/L (3.5-5.1)
--- NOTE | 2021-05-24 07:45 | NUR ---
RT Pt is awake/alert and refusing HHN tx at this time, no SOB or respiratory distress noted. Addendum: 05/24/21 at 0745 by LENO SINGH RT Amended: Links added.
[2021-05-24 08:00] VITALS: BP 103/56
[2021-05-24] MEDS: PANTOPRAZOLE 40 MG TABLET.DR PO SCH (08:45)
[2021-05-24] MEDS: ENSURE ENLIVE CHOC 237 ML CAN PO SCH ×3 (08:45→18:34)
--- NOTE | 2021-05-24 09:30 | NUR ---
RN NOTES DUE MEDS GIVEN.
--- NOTE | 2021-05-24 11:34 | NUR ---
RT Pt is awake/alert and refusing HHN tx at this time, no SOB or respiratory distress noted.
[2021-05-24 12:00] VITALS: BP 95/49
--- NOTE | 2021-05-24 13:42 | NUR ---
DR. ROJAS ORDER ROUTINE CT CHEST W/O, RN (VIKTORIYA) WILL CALL US BACK WHEN READY.
--- NOTE | 2021-05-24 15:14 | NUR ---
RT Pt is awake/alert and refusing HHN tx at this time, no SOB or respiratory distress noted.
[2021-05-24 16:00] VITALS: BP 100/48
--- NOTE | 2021-05-24 19:14 | NUR ---
LOAN REVIEWER CLOSING NOTES PT RESTING COMFORTABLY. AOX4, ON 3L O2 NASAL CANULA, SATTING AT 98%, NO SOB, NO DISTRESS, SR HR 79 ON MONITOR, DENIES PAIN/CHEST DISCOMFORT, IN SEMI-FOWLERS POSITION, RIGHT CHEST TUBE DRAINING WITH OUTPUT MEASURED @500ML. MARKED. RIGHT RFA 20G FLUSHES WELL, SITE CLEAR, SKIN INTACT, ON PRN PAIN MEDICATIONS. SOFT DIET, BEDBOUND. INDEPENDENT OF BED MOBILITY, SAFETY MEASURES IN PLACE WITH BED IN LOWEST LOCKED POSITION, SIDE RAILS UP X2, AND CALL LIGHT WITHIN REACH. ALL NEEDS MET AT THIS TIME. WILL ENDORSE TO NEXT SHIFT FOR DEISI.
--- NOTE | 2021-05-24 19:25 | NUR ---
Pt. is refusing Tx at this time. No SOB or Respiratory distress noted.
--- NOTE | 2021-05-24 19:26 | NUR ---
Pt. is awake and alert and refusing Tx at this time. No SOB or Respiratory distress noted. Addendum: 05/24/21 at 1927 by BRANDON HALL RT Amended: Links added.
--- NOTE | 2021-05-24 19:35 | NUR ---
RN NOTE PT RECEIVED IN BED RESTING COMFORTABLY. PT IS ON 3L OF 02 VIA NC SHOWING NO S/S OF RESP DISTRESS. BREATHING EVEN AND UNLABORED. ALERT AND ORIENTED X4. IN SEMI-MCDUFFIE'S POSITION WITH CHEST TUBE NOTED ON RIGHT UPPER CHEST. ON LEGAL CONSULTANT SHOWING NSR. SKIN INTACT. ON SOFT DIET. IV ACCESS NOTED ON RIGHT FA #20. LINE FLUSHED, PATENT, AND INTACT WITH NO SIGNS OF INFILTRATION. ALL SAFETY MEASURES IMPLEMENTED. CALL LIGHT WITHIN REACH. BED ALARM ON. BED LOCKED AND IN LOWEST POSITION. SIDE RAILS UP. WILL CONTINUE TO MONITOR AND ASSESS FOR ANY CHANGES DURING SHIFT.
[2021-05-24 20:00] VITALS: BP 99/48
[2021-05-24] MEDS ORDERED: TDAP [DIPH/PERTUSSIS/TET] 0.5 ML VIAL IM ONE (20:43)
[2021-05-25] VITALS: BP 113/64
[2021-05-25] MEDS: ZOSYN IVPB 3.375 G in IV D5W 50ml IV SCH ×4 (00:26→17:05)
--- NOTE | 2021-05-25 00:27 | NUR ---
Pt. is refusing Tx at this time. No SOB or Respiratory distress noted. Addendum: 05/25/21 at 0028 by BRANDON HALL RT Amended: Links added.
[2021-05-25] MEDS: MORPHINE SULFATE INJ 2 MG/ML DISP.SYRIN IV PRN ×5 (02:21→21:13)
[2021-05-25] MEDS: IPRATROPIUM NEB FS 0.5 MG/2.5 ML AMPUL.NEB NEB SCH ×6 (03:30→23:30)
[2021-05-25] MEDS: ALBUTEROL HALF STRENGTH 1.25 MG/3 ML VIAL.NEB NEB SCH ×6 (03:30→23:30)
--- NOTE | 2021-05-25 03:44 | NUR ---
Pt. is refusing Tx at this time. No SOB or respiratory distress noted. Addendum: 05/25/21 at 0344 by BRANDON HALL RT Amended: Links added.
[2021-05-25 04:00] VITALS: BP 101/53
--- NOTE | 2021-05-25 07:30 | NUR ---
COMB FIXER OPENING NOTE RECEIVED PT AWAKE IN BED. A/O X4. PT ON 3LPM O2 VIA NC TOLERATING WELL. NO SOB OR S/S OF RESPIRATORY DISTRESS NOTED. PT ON EXTERNAL PANELBEATER READING SR. PT HAS NO C/O PAIN OR DISCOMFORT AT THIS TIME. IV ACCESS IN RFA #20, INTACT AND PATENT. SAFETY PRECAUTIONS MAINTAINED. BED IN LOWEST LOCKED POSITION, HOB ELEVATED, SIDE RAILS UP X2. CALL LIGHT AND TABLE WITHIN REACH. WILL CONTINUE TO MONITOR.
[2021-05-25] MEDS: PANTOPRAZOLE 40 MG TABLET.DR PO SCH (07:44)
[2021-05-25 08:00] VITALS: BP 86/38
[2021-05-25 08:05] LABS: BASOPHILS # (AUTO) 0.1 K/uL (0.0-0.2); BASOPHILS % (AUTO) 0.7 % (0.0-2.0); EOSINOPHILS % (AUTO) 2.4 % (0.0-6.0); HEMATOCRIT 29 % (33-45); HEMOGLOBIN 8.5 g/dL (11.5-14.8); LYMPHOCYTES # (AUTO) 0.8 K/uL (0.8-4.8); LYMPHOCYTES % (AUTO) 9.8 % (20.0-44.0); MEAN CORPUSCULAR HGB CONC 30 g/dl (31.0-36.0); MEAN CORPUSCULAR VOLUME 77 fL (82-100); MONOCYTES # (AUTO) 0.9 K/uL (0.1-1.30); NEUTROPHILS # (AUTO) 5.9 K/uL (1.8-8.9); NEUTROPHILS % (AUTO) 75.1 % (43.0-81.0); PLATELET COUNT (AUTO) 363 K/uL (150-450); RED BLOOD CELL COUNT(AUTO) 3.74 MIL/uL (4.0-5.2); WHITE BLOOD COUNT (AUTO) 7.9 K/uL (4.3-11.0)
[2021-05-25 08:49] LABS: CALCIUM, SERUM 10.2 mg/dL (8.5-10.1); CARBON DIOXIDE 32 mmol/L (21-32); CHLORIDE 103 mmol/L (98-107); CREATININE 0.5 mg/dL (0.6-1.3); GLUCOSE 107 mg/dL (74-106); MAGNESIUM 2.3 mg/dL (1.8-2.4); PHOSPHORUS 3.1 mg/dL (2.5-4.9); POTASSIUM 3.6 mmol/L (3.5-5.1); SODIUM SERUM 138 mmol/L (136-145); UREA NITROGEN, BLOOD 18 mg/dL (7-18)
[2021-05-25] MEDS: ENSURE ENLIVE CHOC 237 ML CAN PO SCH ×3 (09:06→16:15)
[2021-05-25 12:00] VITALS: BP 102/58
[2021-05-25 16:00] VITALS: BP 99/47
[2021-05-25 17:56] LABS: IRON, SERUM 17 ug/dl (50-175); TOTAL IRON BINDING CAPACITY 244 ug/dl (250-450)
--- NOTE | 2021-05-25 18:34 | NUR ---
PRIMING MIXTURE CARRIER CLOSING NOTE PT IS AWAKE IN BED. A/O X4. PT ON 3LPM O2 VIA NC TOLERATING WELL. NO SOB OR S/S OF RESPIRATORY DISTRESS NOTED. PT ON EXTERNAL MANAGER ENVIRONMENTAL SERVICES READING SR. PT HAS NO C/O PAIN OR DISCOMFORT AT THIS TIME. IV ACCESS IN RFA #20, INTACT AND PATENT. RIGHT CHEST TUBE INTACT DRAINING WITH OUTPUT OF 50CC DURING SHIFT. ALL NEEDS HAVE BEEN MET. SAFETY PRECAUTIONS MAINTAINED AT ALL TIMES. BED IN LOWEST LOCKED POSITION, HOB ELEVATED, SIDE RAILS UP X2. CALL LIGHT AND TABLE WITHIN REACH. WILL ENDORSE TO ONCOMING NURSE FOR DEISI. Addendum: 05/25/21 at 1939 by GRAYSON GLODSMITH RN PRIMING MIXTURE CARRIER CLOSING NOTE PT IS AWAKE IN BED. A/O X4. PT ON 3LPM O2 VIA NC TOLERATING WELL. NO SOB OR S/S OF RESPIRATORY DISTRESS NOTED. PT ON EXTERNAL MANAGER ENVIRONMENTAL SERVICES READING SR. PT HAS NO C/O PAIN OR DISCOMFORT AT THIS TIME. IV ACCESS IN RFA #20, INTACT AND PATENT. RIGHT CHEST TUBE INTACT DRAINING WITH OUTPUT OF 730CC DURING SHIFT. ALL NEEDS HAVE BEEN MET. SAFETY PRECAUTIONS MAINTAINED AT ALL TIMES. BED IN LOWEST LOCKED POSITION, HOB ELEVATED, SIDE RAILS UP X2. CALL LIGHT AND TABLE WITHIN REACH. WILL ENDORSE TO ONCOMING NURSE FOR DEISI.
--- NOTE | 2021-05-25 19:30 | NUR ---
RN OPENING NOTE RECEIVED PATIENT IN BED. A/OX3. ON OXYGEN 3L/MIN VIA NASAL CANULA. RESPIRATIONS ARE EVEN AND UNLABORED. PATIENT HAS A CHEST TUBE. OUTPUT SANGUINOUS. C/O PAIN AT THIS TIME, INFORMED HER HER PAIN MEDICATION IS NOT DUE AT THIS TIME. PATIENT IS UPSET. NO DISTRESS. IV ACCESS IN RFA#20 PATENT AND SALINE LOCKED. BED IS LOW AND LOCKED, HOB ELEVATED IN SEMI FOWLERS, SIDE RIALS UP X3, CALL LIGHT WITHIN REACH.
[2021-05-25 20:00] VITALS: BP 106/56
[2021-05-26] VITALS: BP 92/47
--- NOTE | 2021-05-26 | NUR ---
RT NOTE PATIENT REFUSED HHN TX AT THIS TIME. NO RESPIRATORY DISTRESS NOTED. PRIMARY RN IS AWARE.
[2021-05-26] MEDS: ZOSYN IVPB 3.375 G in IV D5W 50ml IV SCH ×3 (00:19→11:49)
--- NOTE | 2021-05-26 02:13 | NUR ---
RN NOTE INFORMED DR. BASS THAT PATIENT BP IS 92/47, HAS CHEST TUBE, REQUESTING MORPHINE. RECEIVED ORDERS FOR 500ML NS BOLUS THEN GIVE MORPHINE. ALSO RECEIVED ORDER FOR STAT CMP, IF ALBUMIN IS LESS THAN 2 THEN REPAGE MD. ALSO RECEIVED ORDER FOR MIDODRINE 10MG Q8HR PRN IS SBP LESS THAN 90. ORDERS READ BACK NOTED AND CARRIED OUT. LAB CALLED TO INFORM OF STAT LAB DRAW FOR CMP.
--- NOTE | 2021-05-26 02:17 | NUR ---
RN NOTE CALLED [facility] TO VERIFY MEDS.
[2021-05-26] MEDS ORDERED: MIDODRINE HCL (5MG) 5 MG TABLET PO PRN (02:30)
[2021-05-26] MEDS ORDERED: IV NS 0.9% 500 ML IV ONE (02:30)
[2021-05-26 02:53] LABS: CALCIUM, SERUM 9.9 mg/dL (8.5-10.1); CARBON DIOXIDE 33 mmol/L (21-32); CHLORIDE 102 mmol/L (98-107); CREATININE 0.5 mg/dL (0.6-1.3); GLUCOSE 126 mg/dL (74-106); POTASSIUM 3.6 mmol/L (3.5-5.1); SODIUM SERUM 137 mmol/L (136-145); UREA NITROGEN, BLOOD 20 mg/dL (7-18)
[2021-05-26 03:01] LABS: ALANINE AMINOTRANSFERASE 10 U/L (12-78); ALKALINE PHOSPHATASE 92 U/L (46-116); ASPARTATE AMINOTRANSFERASE 11 U/L (15-37); BILIRUBIN,TOTAL 0.2 mg/dL (0.2-1.0)
[2021-05-26 03:02] LABS: ALBUMIN 2.4 g/dL (3.4-5.0); TOTAL PROTEIN, SERUM 6.8 g/dL (6.4-8.2)
--- NOTE | 2021-05-26 03:05 | NUR ---
RN NOTE IV INFILTRATED. STARTED NEW IV IN LFA#20 RUNNING THE BOLUS NOW. Addendum: 05/26/21 at 0308 by JAYLENE GALLO RN ALSO CHANGED CHEST TUBE SYSTEM. OUTPUT IS 210 CC SANGUINOUS.
[2021-05-26] MEDS: ALBUTEROL HALF STRENGTH 1.25 MG/3 ML VIAL.NEB NEB SCH ×6 (03:30→23:21)
[2021-05-26] MEDS: IPRATROPIUM NEB FS 0.5 MG/2.5 ML AMPUL.NEB NEB SCH ×6 (03:30→23:21)
[2021-05-26 04:00] VITALS: BP 93/56
[2021-05-26] MEDS: MORPHINE SULFATE INJ 2 MG/ML DISP.SYRIN IV PRN ×4 (04:01→20:53)
--- NOTE | 2021-05-26 04:02 | NUR ---
RT NOTE PATIENT REFUSED HHN TX AT THIS TIME. NO RESPIRATORY DISTRESS NOTED AT THIS TIME. PRIMARY RN IS AWARE.
[2021-05-26] MEDS: PANTOPRAZOLE 40 MG TABLET.DR PO SCH (07:30)
[2021-05-26 08:00] VITALS: BP 90/45
--- NOTE | 2021-05-26 08:08 | NUR ---
RN CLOSING NOTE PATIENT RESTING IN BED. A/OX3. REMAINS ON OXYGEN 3L/MIN VIA NASAL CANULA. NO RESP DISTRESS. CHEST TUBE OUTPUT 360ML, SANGUINOUS, CHEST TUBE CHAMBER CHANGED DURING SHIFT WITH NO COMPLICATIONS.MANAGED PAIN WITH MORPHINE THROUGHOUT SHIFT.IV ACCESS CHANGED TO THE LFA#20. BED REMAINS LOW AND LOCKED, HOB ELEVATED IN SEMI FOWLERS, SIDE RIALS UP X3, CALL LIGHT WITHIN REACH. WILL ENDORSE TO ONCOMING SHIFT.
--- NOTE | 2021-05-26 08:08 | NUR ---
SHOE LAY OUT PLANNER OPENING NOTES RECEIVED PT AWAKE RESTING IN BED,VERBALLY RESPONSIVE. NO S/SX OF RESPIRATORY DISTRESS NOTED. RIGHT CHEST TUBE DRAINING WELL. PT HAS A LFA G20 IV SALINE LOCK, FLUSHED PATENT AND IN TACT. PT HAS NO COMPLAINTS OF PAIN AT THIS TIME. SAFETY MEASURES IN FOLLOWED AND CALL LIGHT WITHIN REACH.
[2021-05-26 08:17] LABS: BASOPHILS # (AUTO) 0.1 K/uL (0.0-0.2); BASOPHILS % (AUTO) 0.7 % (0.0-2.0); EOSINOPHILS % (AUTO) 2.7 % (0.0-6.0); HEMATOCRIT 27 % (33-45); HEMOGLOBIN 8.3 g/dL (11.5-14.8); LYMPHOCYTES # (AUTO) 0.8 K/uL (0.8-4.8); LYMPHOCYTES % (AUTO) 10.5 % (20.0-44.0); MEAN CORPUSCULAR HGB CONC 30 g/dl (31.0-36.0); MEAN CORPUSCULAR VOLUME 77 fL (82-100); MONOCYTES # (AUTO) 0.9 K/uL (0.1-1.30); MONOCYTES % (AUTO) 10.8 % (2.0-12.0); NEUTROPHILS # (AUTO) 6.1 K/uL (1.8-8.9); NEUTROPHILS % (AUTO) 75.3 % (43.0-81.0); PLATELET COUNT (AUTO) 369 K/uL (150-450); RED BLOOD CELL COUNT(AUTO) 3.57 MIL/uL (4.0-5.2); WHITE BLOOD COUNT (AUTO) 8.1 K/uL (4.3-11.0)
[2021-05-26 08:23] LABS: CALCIUM, SERUM 9.7 mg/dL (8.5-10.1); CARBON DIOXIDE 31 mmol/L (21-32); CHLORIDE 104 mmol/L (98-107); CREATININE 0.4 mg/dL (0.6-1.3); GLUCOSE 99 mg/dL (74-106); MAGNESIUM 2.3 mg/dL (1.8-2.4); POTASSIUM 3.4 mmol/L (3.5-5.1); SODIUM SERUM 138 mmol/L (136-145); UREA NITROGEN, BLOOD 16 mg/dL (7-18)
[2021-05-26] MEDS: ENSURE ENLIVE CHOC 237 ML CAN PO SCH ×3 (08:24→18:09)
--- NOTE | 2021-05-26 08:24 | NUR ---
RN NOTE PT REFUSED AM MEDS PANTOPRAZOLE, DESPITE EXPLAINING RISK AND BENEFITS OF MEDICATION.
[2021-05-26] MEDS ORDERED: POTASSIUM CHLORIDE 20 MEQ POWDER PACKET PO ONE (11:00)
[2021-05-26 12:00] VITALS: BP 92/53
[2021-05-26] MEDS: SOD FERRIC GLUC 125 MG in IV NS 0.9% 100 ML IV SCH (14:28)
[2021-05-26 16:00] VITALS: BP 98/43
[2021-05-26 20:00] VITALS: BP 105/63
--- NOTE | 2021-05-26 20:01 | NUR ---
RN OPENING NOTES RECEIVED PATIENT ON BED AWAKE, ALERT AND VERBALLY RESPONSIVE, RESPIRATOEY EVEN AND UNLABORED, NO SOB, NO COUGH NOTED. NOTED ON OXYGEN AT 3LPM VIA NASAL CANNULA. HEAD OF BED ELEVATED SEMI FOWLERS. DENIES PAIN AT THIS TIME. NOTED TO BE ON CHEST TUBE ON RIGHT LATERAL BODY AND NOTED WITH DARK RED DRAINAGE. NO BLEEDING AT SITE, NO BUBBLING AT WATER CHAMBER. NOTED ON CONTINUOS SUCTION AT -20CM, RECEIVED WITH 410 ML OF DRAINAGE. NOTED WITH LEFT FOREARM #20 PERIPHERAL LINE, FLUSHED WITH NS, PATENT, NO INFILTRATION AT THE SITE. BED LOW IN LOCKED POSITION. BED ALARM ARMED. CALL LIGHT WITH IN REACH.
--- NOTE | 2021-05-26 20:01 | NUR ---
RT NOTE PT RECEIVED AWAKE/ALERT ON 32% NASAL CANNULA. PT REFUSED TX AT THIS TIME. RN BETTYE AWARE. NO RESPIRATORY DISTRESS NOTED AT THIS TIME. WILL MONITOR.
--- NOTE | 2021-05-26 20:04 | NUR ---
RN CLOSING NOTE PT IS AWAKE RESTING IN BED. A/O X4. PT ON 3LPM O2 VIA NC. NO SOB NOTED. PT ON EXTERNAL SENIOR COMMISSARY AGENT READING SR. IV ACCESS IN RFA #20, INTACT AND PATENT. RIGHT CHEST TUBE INTACT DRAINING WITH OUTPUT OF 50CC DURING SHIFT. SAFETY PRECAUTIONS FOLLOWED BED IN LOWEST LOCKED POSITION, HOB ELEVATED, SIDE RAILS UP X2. CALL LIGHT AND TABLE WITHIN REACH. WILL ENDORSE TO ONCOMING NURSE FOR DEISI.
--- NOTE | 2021-05-26 20:54 | NUR ---
RN NOTES PATIENT REQUESTING PAIN MEDICATION, PATIENT STATES PAIN IS ON HER CHEST NON RADIATING AND COMES AND GOES. RATE PAIN 8/10, PATIENT STATES PAIN IS TOLERABLE. PATIENT ON TELEMETRY SINUS RHYTHM AT 77 BPM, VITAL SIGNS WNL. ADMINISTERED MORPHINE 2MG/ML PER MD'S ORDER. WILL CONTINUE TO MONITOR. CALL LIGHT WITH IN REACH.
--- NOTE | 2021-05-26 23:22 | NUR ---
RT NOTE PT REFUSING TX AT THIS TIME. NO RESPIRATORY DISTRESS NOTED. RN NOTIFIED.
[2021-05-27] VITALS (8 sets, daily range): BP systolic 93–113; BP diastolic 53–63
--- NOTE | 2021-05-27 02:30 | NUR ---
RN NOTES PATIENT REQUESTING FOR PAIN MEDICATION, STATES SHE HAS PAIN IN HER CHEST/ LOWER EPIGASTRIC AREA THAT COMES AND GOES, NON RADIATING, DENIES BURNING SENSATION. MORPHINE PULLED OUT BUT RETURN PATIENT REFUSED PRIOR TO ADMINISTRATION. WILL CONTINUE TO MONITOR.
[2021-05-27] MEDS: ALBUTEROL HALF STRENGTH 1.25 MG/3 ML VIAL.NEB NEB SCH ×6 (03:30→23:30)
[2021-05-27] MEDS: IPRATROPIUM NEB FS 0.5 MG/2.5 ML AMPUL.NEB NEB SCH ×6 (03:30→23:30)
--- NOTE | 2021-05-27 03:45 | NUR ---
RT NOTE PT REFUSED TX X 3. EXPLAINED RISKS AND BENEFITS. RAO WEN NOTIFIED.
[2021-05-27] MEDS: MORPHINE SULFATE INJ 2 MG/ML DISP.SYRIN IV PRN ×6 (04:08→23:59)
--- NOTE | 2021-05-27 04:08 | NUR ---
RN NOTE PATIENT REQUESTING FOR PAIN MEDICATION. STATES PAIN IS IN MEDIAL CHEST AND PAIN COMES AND GOES. DENIES RADIATING PAIN. RATES PAIN 8/10. ASSISTED WITH TURNING AND REPOSITIONING. ADMINISTERED MORPHINE 2 MG/ML PER MD ORDER. VIA IVP, NO INFILTRATION NOTED. VITAL SIGNS WITHIN NORMAL LIMITS. CALL LIGHT WITHIN REACH, WILL CONTINUE TO MONITOR.
--- NOTE | 2021-05-27 06:30 | NUR ---
RN NOTE PATIENT TRANSFERRED TO 3W PER ACLS PROTOCOL IN STABLE CONDITION. REPORT GIVEN TO RAO BECKHAM, FOR CONTINUITY OF CARE.
[2021-05-27 06:48] LABS: BASOPHILS # (AUTO) 0.1 K/uL (0.0-0.2); BASOPHILS % (AUTO) 0.5 % (0.0-2.0); EOSINOPHILS % (AUTO) 2.9 % (0.0-6.0); HEMATOCRIT 30 % (33-45); HEMOGLOBIN 8.8 g/dL (11.5-14.8); LYMPHOCYTES # (AUTO) 0.9 K/uL (0.8-4.8); LYMPHOCYTES % (AUTO) 9.5 % (20.0-44.0); MEAN CORPUSCULAR HGB CONC 30 g/dl (31.0-36.0); MEAN CORPUSCULAR VOLUME 77 fL (82-100); MONOCYTES # (AUTO) 1.1 K/uL (0.1-1.30); MONOCYTES % (AUTO) 11.4 % (2.0-12.0); NEUTROPHILS # (AUTO) 7.1 K/uL (1.8-8.9); NEUTROPHILS % (AUTO) 75.7 % (43.0-81.0); PLATELET COUNT (AUTO) 368 K/uL (150-450); RED BLOOD CELL COUNT(AUTO) 3.87 MIL/uL (4.0-5.2); WHITE BLOOD COUNT (AUTO) 9.4 K/uL (4.3-11.0)
--- NOTE | 2021-05-27 06:49 | NUR ---
from patti via bed alert and orientated x4 lying onher left side skin cdi intact chest tubr to drainage bloody atrium tape to the floor to low suction right pigtail site clean no noted sob noted. she appears comfortable ital signs T 97.4 P 78 R 16 02 sat 93% B/P 107/56
[2021-05-27 07:25] LABS: CARBON DIOXIDE 33 mmol/L (21-32); CHLORIDE 103 mmol/L (98-107); CREATININE 0.5 mg/dL (0.6-1.3); GLUCOSE 110 mg/dL (74-106); MAGNESIUM 2.2 mg/dL (1.8-2.4); SODIUM SERUM 139 mmol/L (136-145); UREA NITROGEN, BLOOD 16 mg/dL (7-18)
[2021-05-27] MEDS: PANTOPRAZOLE 40 MG TABLET.DR PO SCH (07:30)
--- NOTE | 2021-05-27 07:30 | NUR ---
RETAIL COVERAGE MERCHANDISER OPENING NOTES RECEIVED PATIENT IN BED ALERT AND ORIENTED TIMES 4. NO RESPIRATORY DISTRESS NOTED. ABLE TO MAKE NEEDS KNOWN. ON CHEST TUBE DRAINING FROM RIGHT UPPER SIDE. IV SITE LEFT FOREARM g20 INTACT. BED IN THE LOWEST POSITION AND LOCKED. CALL LIGHT AND TABLE WITHIN REACH. WILL CONTINUE TO MONITOR.
--- NOTE | 2021-05-27 08:06 | NUR ---
RT Pt is refusing HHN tx at this time, she states that she does not feel like the HHN tx are helping her. No respiratory distress noted at this time.
--- NOTE | 2021-05-27 08:06 | NUR ---
RN NOTES PATIENT REFUSED PANTOPRAZOLE 40 MG. EXPLAINED THE BENEFITS AND THE PURPOSE OF THE MEDICATION PATIENT STATED IT MAKES HER NAUSEOUS.
[2021-05-27] MEDS: ENSURE ENLIVE CHOC 237 ML CAN PO SCH ×3 (09:08→17:44)
--- NOTE | 2021-05-27 12:20 | NUR ---
RT NOTE PATIENT REFUSING BREATHING TREATMENT AT THIS TIME. NO SOB NOTED. RN ALANI AWARE AND NOTIFIED.
[2021-05-27] MEDS: SOD FERRIC GLUC 125 MG in IV NS 0.9% 100 ML IV SCH (14:50)
--- NOTE | 2021-05-27 19:00 | NUR ---
HAND TAPPER CLOSING NOTES PATIENT SLEEPS IN BED ALERT AND ORIENTED TIMES 4. NO RESPIRATORY DISTRESS NOTED. ABLE TO MAKE NEEDS KNOWN. ON CHEST TUBE DRAINING FROM RIGHT UPPER SIDE. IV SITE LEFT FOREARM g20 INTACT. ALL DUE MEDS GIVEN ORDERED. BED IN THE LOWEST POSITION AND LOCKED. CALL LIGHT AND TABLE WITHIN REACH. WILL ENDORSE INCOMING NURSE FOR DEISI.
--- NOTE | 2021-05-27 19:44 | NUR ---
in bed alert and orientated x3 ling on here right side pigyail to low intermitten suction blood drainage on room air in no distress call light within here reach
--- NOTE | 2021-05-27 20:13 | NUR ---
RT pt refused neb tx, notified haroon lamb
[2021-05-28] VITALS (9 sets, daily range): BP systolic 90–119; BP diastolic 52–64
[2021-05-28] MEDS: IPRATROPIUM NEB FS 0.5 MG/2.5 ML AMPUL.NEB NEB SCH ×5 (03:30→20:15)
[2021-05-28] MEDS: ALBUTEROL HALF STRENGTH 1.25 MG/3 ML VIAL.NEB NEB SCH ×5 (03:30→20:15)
--- NOTE | 2021-05-28 03:58 | NUR ---
ALERT AND ORIENTATED X4 MEDICATED X3 FOR RIGHT CHEST FLANK PAIN SITE IF THE CHEST TUBE. WITH MORPHINE AND EFFECTIVE ASSISTED UP TO THE BEDSIDE COMMODE MINIMAL ASSIST MAKES HER NEEDS KNOWN OFFERED SNACK THRU THE NIGHT SHE REFUSES 02 2 ON 2 LITERS SATS 93% WHEN ASLLEO
[2021-05-28] MEDS: MORPHINE SULFATE INJ 2 MG/ML DISP.SYRIN IV PRN ×5 (04:59→22:29)
[2021-05-28 06:42] LABS: CALCIUM, SERUM 10.8 mg/dL (8.5-10.1); CARBON DIOXIDE 32 mmol/L (21-32); CHLORIDE 107 mmol/L (98-107); CREATININE 0.5 mg/dL (0.6-1.3); GLUCOSE 110 mg/dL (74-106); MAGNESIUM 2.4 mg/dL (1.8-2.4); POTASSIUM 4.9 mmol/L (3.5-5.1); SODIUM SERUM 142 mmol/L (136-145); UREA NITROGEN, BLOOD 18 mg/dL (7-18)
[2021-05-28 06:45] LABS: BASOPHILS # (AUTO) 0.1 K/uL (0.0-0.2); BASOPHILS % (AUTO) 0.7 % (0.0-2.0); EOSINOPHILS % (AUTO) 3.1 % (0.0-6.0); HEMATOCRIT 31 % (33-45); HEMOGLOBIN 9.1 g/dL (11.5-14.8); LYMPHOCYTES % (AUTO) 11.4 % (20.0-44.0); MEAN CORPUSCULAR HGB CONC 29 g/dl (31.0-36.0); MEAN CORPUSCULAR VOLUME 77 fL (82-100); MONOCYTES # (AUTO) 0.9 K/uL (0.1-1.30); MONOCYTES % (AUTO) 10.5 % (2.0-12.0); NEUTROPHILS # (AUTO) 6.4 K/uL (1.8-8.9); NEUTROPHILS % (AUTO) 74.3 % (43.0-81.0); PLATELET COUNT (AUTO) 387 K/uL (150-450); RED BLOOD CELL COUNT(AUTO) 4.01 MIL/uL (4.0-5.2); WHITE BLOOD COUNT (AUTO) 8.7 K/uL (4.3-11.0)
[2021-05-28] MEDS: PANTOPRAZOLE 40 MG TABLET.DR PO SCH (07:30)
--- NOTE | 2021-05-28 07:30 | NUR ---
CONVEYOR INSTALLER OPENING NOTES RECEIVED PATIENT IN BED ALERT AND ORIENTED TIMES 4. NO RESPIRATORY DISTRESS NOTED. ABLE TO MAKE NEEDS KNOWN. ON TELE MONITORING READING HR=80 .ON CHEST TUBE DRAINING FROM RIGHT UPPER SIDE. IV SITE LEFT FOREARM G #20 INTACT AND PATENT. NO BLEEDING NO PAIN NOTED. BED IN THE LOWEST POSITION AND LOCKED. CALL LIGHT AND TABLE WITHIN REACH. WILL CONTINUE TO MONITOR.
[2021-05-28] MEDS: ENSURE ENLIVE CHOC 237 ML CAN PO SCH ×3 (08:05→17:05)
--- NOTE | 2021-05-28 08:08 | NUR ---
RN NOTES PATIENT REFUSED PANTOPRAZOLE STATED IT MAKES ME NAUSEOUS. EXPLAINED THE BENEFITS AND THE PURPOSE, PATIENT STILL REFUSING, RESPECT PATIENT RIGHT.
[2021-05-28] MEDS: ACETAMINOPHEN 325 MG TABLET PO PRN ×2 (10:22→16:24)
[2021-05-28] MEDS: VENLAFAXINE XR 37.5 MG CAP.SR.24H PO SCH (11:56)
--- NOTE | 2021-05-28 13:13 | NUR ---
SS Consult: SS consult for depressed and needs animal cared for at home. Pt. Is a 76-year-old female. Pt. demonstrates adequate insight to the reason for hospitalization. Per pt., she was brought to hospital by ambulance due to shortness of breath. Pt. was oriented x4, alert, and cooperative. During interview, pt. was capable of following directions, made appropriate eye-contact, and appeared well-groomed. Pt.s speech was at a normal rate. CARMELITA explored pt.s Hx of mental health and substance abuse. Pt. reported no Hx of mental health, substance abuse, suicidal or homicidal. Pt. denies auditory hallucinations, visual hallucinations, paranoia, or delusions. SW explored pt.s living situation. Pt. reported that she lives alone [[address] [place] [address]], has no family or caregiver. She has a niece that lives in [place] that calls once a week. Pt. mentioned that she does not feel safe at home due to not having anyone around for help. Pt. reported that she has a Highway Painter Helper that comes and see her "when she feels like it." Social Workers info: Erika tele: [phone]. Patient has a pet parrot at home that needs caring. Pt. mentioned that she has a friend name Ricci that is supported and provides transportation when she needs it. Patient reports needing a caregiver at home. CARMELITA explored pt.s financial status. Per pt., she receives food stamps and social security income. Plan: SW provided available resources and pt. accepted. SW made an APS report [Intake #:[id number]] due to not having a caregiver at home. Once discharge, per pt., she will return to home. Resources Provided: ABUSE PREVENTION: ELDER ABUSE HOTLINE (16/01) ADULT PROTECTIVE SERVICES HOTLINE LONG-TERM CARE [facility] AREA ON AGING (HOTLINE) ADULT DAY HEALTH CARE CARE CENTERS: Private pay or Medi-jesse funded adult day care [facility] [facility] , [facility] , [facility] , [facility] Day [facility] Care , [facility] Day [facility] , [facility] , [place] [facility] , [facility] , [place] ALZHEIMERS DISEASE/DEMENTIA: Alzheimers Association Helpline [facility] Chapter www.alz.org/[facility] Department of Aging www.lacity.org Family Caregiver [place] www.caregiver.org [place] Caregiver Resources Center/Family Support www.[facility].org CANCER RESOURCES: [place] Cancer Society www.cancer.org Cancer Support Community www.CancerSupportVvsb.org: CancerCare www.cancercare.org [facility] Cancer Support [place] www.[facility].org [facility] HE[facility] ASSOCIATIONS: AARP www.aarp.org ALS Association (ask for Tanesha) www.als.org Romanian Diabetes Association www.diabetes.org Romanian Heart Association www.heart.org Romanian Lung Association www.lungusa.org Romanian Parkinson Disease Association www.apdaparkinson.org [place] , www.redcross.org Arthritis Foundation www.arthritis.org Crohns & Colitis Foundation of Romanian www.ccfa.org/chapters/suzie National Multiple Sclerosis Society www.nationalmssociety.org Myasthenia Gravis Foundation www.myasthenia-ca.org National Stroke Association www.stroke.org CONSERVATORSHIP & GUARDIANSHIP: AARP Teodora Campbell Legal Services Center for Health Care Rights [place] Information and Referral Municipal Court Magistrate Foundation [facility]: [facility] Bar Referral Service [facility] Legal Services Office of the Public Guardian [place] EYESIGHT DISORDER RESOURCES: Romanian Macular Degeneration Foundation [facility] www.[facility].org GRIEF AND BEREAVEMENT RESOURCES: The [facility] , [facility] THE HOPE Connection , [facility] Bereavement Center , [place] HEARING DISORDER RESOURCES: [place] Telephone Access Program Deaf and Disabled Telecommunications Program www.ddtp.[facility].ca.gov HearRx Hearing Centers ([place]) Better Hearing Systems , [place] GLAD ([facility] Agency on Deafness) V/ TTY; Upstream Biomanufacturing Technician , [facility] Hearing [facility] -low income hearing aid assistance www.CYP Designhearingfoundation.org [place] Hearing Care , Steven HELP AT HOME CAREGIVER SUPPORT: In Home Support Services (Must have Medi-Jesse to be eligible) *Ask for a list of agencies that provide services to assist with care in the home. Local Senior Centers also have listings of care providers. HOME SAFETY MODIFICATIONS AND EQUIPMENT: Senior centers have additional referrals. [place] RentPost and Paymate Investment Dept. Handyworker Program (low income) or Visit http://hcidla.lacity.org/vrc-naiofr-te for more information National Seating and Mobility and/or ; Forever Active www.foreverAd Tech Media Salesmed.PaperV Stay Home Safe www.Stayhomesafe.com LIFE ALERT RESPONSE SYSTEM: CustomInk Services 071-859-3168 www. Air2Web Life Alert 749-055-6127 www.Huitongda Life Station [phone] www.Cardagin Networksation.PaperV Safe Return [phone] www.alz.or/safereturn Cell Phones for Seniors www.PushSpring MEALS AND FOOD PROGRAMS: [place] Meals on Wheels [phone] [place] Meals on Wheels [phone] [facility] [phone] [place] to the Homebound [phone] [place] to the Homebound [phone] [facility] to the Homebound [phone] [facility] to the Homebound [phone] [facility] Keny Chan [phone] [facility] [phone] ONE Generation [phone] [facility] [phone] [facility] [phone] Meals on Wheels [phone] For all ages: $6.85/ meal w side. Delivered M-F from 10 am-1pm. Application and payment is done over the phone. Frozen meals available for weekends. Emergency Food [facility] [phone] [facility], [place] Collision Repairer [phone] [facility] [phone] [facility]- Brown bag lunches [phone] [facility] [phone] MEAL/GROCERY DELIVERY PROGRAMS: Isaac Senior Gourmet Meals [phone]- [facility] [phone]- [facility] Magic Kitchen [phone] Moms Meals [phone] (ask Rodriguez for Discount Select grocery stores may provide delivery. MEDICAL INSURANCE SUPPORT SERVICES: Center for Health Care Rights [phone] Health Insurance Counseling/Advocacy Programs (HICAP)-Must have Medicare. Offers counseling for Medi-Jesse eligibility [phone] Department of Public Collision Repairer [phone] www.[facility].ca.gov Medicare [phone] www.socialsecurity.org Social Security [phone] SENIOR ACTIVITY PROGRAMS: *Contact a local senior center, adult school, recreation facility or community college for education, fitness, recreation, and social programs. Aquatic Therapy and Adapted Exercise programs through [facility] [phone] Encore at [facility] [phone] www.[facility]/encore U- Senior Friends [phone] [place] Senior Programs [phone] www.oasisnet.org Suddenly 65 www.oxjeieqo90.com SENIOR CENTERS: [facility] [phone] [facility] [phone] [facility] [phone] [facility] [phone] [facility] [phone] [facility] [phone] [facility] [phone] [facility] [phone] One Generation, [facility] [phone] [facility] [phone] [facility] [phone] [facility] [phone] [facility] [phone] TRANSPORTATION: Local [facility] may have applications for transportation programs and additional resources. ACCESS Services [phone] Transportation for seniors and disabled persons 7 days a week requiring 254 hr. advance reservation. Must apply and register for program chanda eligible. [place] [employer] RIDE [phone] or [phone] Transportation for seniors and persons with ADA card/metro disabled card in the [facility]. M-F only. Must register for services. ONE GENERATION [phone] Serves 65 years + in conjunction with CrowdPlat ride program. Must be registered with both programs. A to B Transport [phone] Provides wheelchair/gurney van service. Adult Medical Transport [phone] Accepts Medi-jesse with prior authorization. Care Van [phone] Provides wheelchair Transport. [facility] Wide Transportation [phone] Provides gurney service Gentle [facility] [phone] Gurney Transport. [facility] Town Transportation [phone] wheelchair & gurney transport D Transportation [phone] wheelchair & gurney transport [place] Non-Emergency Transport [phone] wheelchair & gurney transport [facility] Living [place] [phone] Short Term Transportation primarily for adults with disabilities on social security income. Nominal fee may apply and a reservation is required. [employer] Cab [phone] or [phone] [facility] [phone] [place] [address] Referral Services -[phone] For additional programs & services VETERANS RESOURCES: Submissions for Aid and Attendance should be done directly to Federal VA office locatd at : [address] [facility] [address] X110 National Caregiver Support Line [phone] [facility] Field Office [phone] [place] Department of Affairs [phone] Pension Information [phone]
[2021-05-28] MEDS: SOD FERRIC GLUC 125 MG in IV NS 0.9% 100 ML IV SCH (14:54)
--- NOTE | 2021-05-28 18:11 | NUR ---
RN NOTES CHEST TUBE CHAMBER WAS FULL . VITAL[place] THE CHARGE NURSE CHANGED THE CHEST TUBE CHAMBER TO THE NEW ONE.
--- NOTE | 2021-05-28 18:30 | NUR ---
NEURO OPHTHALMOLOGIST CLOSING NOTES PATIENT AWAKE IN BED ALERT AND ORIENTED TIMES 4. NO RESPIRATORY DISTRESS NOTED. ABLE TO MAKE NEEDS KNOWN. ON TELE MONITORING READING HR=73. .ON CHEST TUBE DRAINING FROM RIGHT UPPER SIDE. IV SITE LEFT FOREARM G #20 INTACT AND PATENT. NO BLEEDING NO PAIN NOTED. ALL DUE MEDS GIVEN.BED IN THE LOWEST POSITION AND LOCKED. CALL LIGHT AND TABLE WITHIN REACH. WILL ENDORSE INCOMING SHIFT FOR DEISI.
--- NOTE | 2021-05-28 19:20 | NUR ---
SURVEILLANCE SPECIALIST OPENING NOTES RECEIVED PATIENT AWAKE LAYING IN BED. A/O X4. PATIENT WITH REGULAR AND UNLABORED BREATHING ON NASAL CANULA 2L, TOLERATED WELL. NO SIGNS AND SYMPTOMS OF DISTRESS NOTED. NO COMPLAIN OF PAIN OR DISCOMFORT AT THIS TIME. PATIENT IS ON TELE SR @HR 76. CHEST TUBE ON RIGHT SIDE. CLEAN DRY AND INTACT. IV ACCESS LFA G #20 SL. ACCESS PATENT AND INTACT. SAFETY PRECAUTIONS ENFORCED WITH BED LOCKED AND AT LOWEST POSITION. SIDERAILS UP X2. CALL LIGHT WITHIN REACH AT ALL TIMES WILL CONTINUE TO MONITOR PATIENT.
--- NOTE | 2021-05-28 22:29 | NUR ---
spinning frame changer notes Pt's complaining of pain on upper lung and requesting pain med. Administered morphine 2 mg/iv push as ordered for pain. VS is stable. Safety precautions is maintained. Will continue to monitor.
[2021-05-29] VITALS (7 sets, daily range): BP systolic 100–118; BP diastolic 49–72
[2021-05-29] MEDS: IPRATROPIUM NEB FS 0.5 MG/2.5 ML AMPUL.NEB NEB SCH ×7 (00:02→23:30)
[2021-05-29] MEDS: ALBUTEROL HALF STRENGTH 1.25 MG/3 ML VIAL.NEB NEB SCH ×7 (00:02→23:30)
[2021-05-29] MEDS: MORPHINE SULFATE INJ 2 MG/ML DISP.SYRIN IV PRN ×5 (02:33→21:34)
--- NOTE | 2021-05-29 06:45 | NUR ---
HOSPICE/HOME HEALTH AIDE CLOSING NOTES PATIENT STILL AWAKE LAYING IN BED. A/O X4. PATIENT WITH REGULAR AND UNLABORED BREATHING ON NASAL CANULA 2L, TOLERATED WELL. NO SIGNS AND SYMPTOMS OF DISTRESS NOTED. ALL ROUTINE MEDS GIVEN INCLUDING PAIN MEDS FOR PAIN MANAGEMENT. PATIENT IS ON TELE SR @HR 76. CHEST TUBE ON RIGHT SIDE. 60 ML IN CHAMBER. CLEAN DRY AND INTACT. IV ACCESS LFA G #20 SL. ACCESS PATENT AND INTACT. SAFETY PRECAUTIONS ENFORCED WITH BED LOCKED AND AT LOWEST POSITION. SIDERAILS UP X2. CALL LIGHT WITHIN REACH AT ALL TIMES WILL ENDORSE DEISI TO DAY SHIFT NURSE.
[2021-05-29 07:12] LABS: BASOPHILS # (AUTO) 0.1 K/uL (0.0-0.2); BASOPHILS % (AUTO) 0.8 % (0.0-2.0); EOSINOPHILS % (AUTO) 3.6 % (0.0-6.0); HEMATOCRIT 30 % (33-45); HEMOGLOBIN 8.7 g/dL (11.5-14.8); LYMPHOCYTES # (AUTO) 0.9 K/uL (0.8-4.8); LYMPHOCYTES % (AUTO) 9.4 % (20.0-44.0); MEAN CORPUSCULAR HGB CONC 30 g/dl (31.0-36.0); MEAN CORPUSCULAR VOLUME 77 fL (82-100); MONOCYTES % (AUTO) 11.1 % (2.0-12.0); NEUTROPHILS % (AUTO) 75.1 % (43.0-81.0); PLATELET COUNT (AUTO) 381 K/uL (150-450); WHITE BLOOD COUNT (AUTO) 9.3 K/uL (4.3-11.0)
[2021-05-29 07:26] LABS: CALCIUM, SERUM 10.4 mg/dL (8.5-10.1); CARBON DIOXIDE 32 mmol/L (21-32); CHLORIDE 103 mmol/L (98-107); CREATININE 0.4 mg/dL (0.6-1.3); GLUCOSE 104 mg/dL (74-106); MAGNESIUM 2.5 mg/dL (1.8-2.4); POTASSIUM 4.5 mmol/L (3.5-5.1); SODIUM SERUM 138 mmol/L (136-145); UREA NITROGEN, BLOOD 18 mg/dL (7-18)
--- NOTE | 2021-05-29 07:52 | NUR ---
CLINICAL RADIOLOGIST OPENING NOTES RECEIVED PATIENT IN BED AWAKE , A/O X4. PATIENT WITH REGULAR AND UNLABORED BREATHING ON NASAL CANULA 2L, TOLERATED WELL. NO SIGNS AND SYMPTOMS OF DISTRESS NOTED AT THIS TIME. PATIENT IS ON TELE MONITORING. CHEST TUBE ON RIGHT SIDE. CLEAN DRY AND INTACT. IV ACCESS LFA G #20 SL. ACCESS PATENT AND INTACT. SAFETY PRECAUTIONS ENFORCED WITH BED LOCKED AND AT LOWEST POSITION. SIDERAILS UP X2. CALL LIGHT WITHIN REACH. WILL CONTINUE TO MONITOR
[2021-05-29] MEDS: ENSURE ENLIVE CHOC 237 ML CAN PO SCH ×3 (08:00→17:15)
[2021-05-29] MEDS: VENLAFAXINE XR 37.5 MG CAP.SR.24H PO SCH (09:11)
[2021-05-29] MEDS: PANTOPRAZOLE 40 MG TABLET.DR PO SCH (09:33)
[2021-05-29] MEDS: SOD FERRIC GLUC 125 MG in IV NS 0.9% 100 ML IV SCH (14:43)
--- NOTE | 2021-05-29 19:33 | NUR ---
REEL FED PRINTER CLOSING NOTES PATIENT STILL AWAKE LAYING IN BED. A/O X4. PATIENT WITH REGULAR AND UNLABORED BREATHING ON NASAL CANULA 3 LPM, TOLERATED WELL. NO SIGNS AND SYMPTOMS OF DISTRESS NOTED. ALL ROUTINE MEDS GIVEN INCLUDING PAIN MEDS FOR PAIN MANAGEMENT. PATIENT IS ON TELE SR @HR 72. CHEST TUBE ON RIGHT SIDE. 490 ML IN CHAMBER. CLEAN DRY AND INTACT. IV ACCESS LFA G #20 SL. ACCESS PATENT AND INTACT. BEDSIDE COMMODE PROVIDED.SAFETY PRECAUTIONS IN PLACED,WITH BED LOCKED AND AT LOWEST POSITION. SIDERAILS UP X2. CALL LIGHT WITHIN REACH AT ALL TIMES WILL ENDORSE TO THE INCOMING SHIFT NURSE.
--- NOTE | 2021-05-29 19:46 | NUR ---
FIBERGLASS BOAT ASSEMBLY SUPERVISOR OPENING NOTES RECEIVED PATIENT AWAKE LAYING IN BED. A/O X4. PATIENT WITH REGULAR AND UNLABORED BREATHING ON NASAL CANULA 2L, TOLERATED WELL. NO SIGNS AND SYMPTOMS OF DISTRESS NOTED. NO COMPLAIN OF PAIN OR DISCOMFORT AT THIS TIME. PATIENT IS ON TELE SR @HR 72. CHEST TUBE ON RIGHT SIDE. CLEAN DRY AND INTACT. IV ACCESS LFA G #20 SL. ACCESS PATENT AND INTACT. SAFETY PRECAUTIONS ENFORCED WITH BED LOCKED AND AT LOWEST POSITION. SIDERAILS UP X2. CALL LIGHT WITHIN REACH AT ALL TIMES WILL CONTINUE TO MONITOR PATIENT.
--- NOTE | 2021-05-29 20:30 | NUR ---
RT Pt refusing HHN TX at this time. No distress noted at this time on 2L nasal cannula. Will cont to monitor.
--- NOTE | 2021-05-29 22:04 | NUR ---
COKE PRODUCTION HEATER NOTES PT REPORTED PAIN PRN MORPHINE GIVEN AND TOLERATED WELL. WILL CONTINUE TO MONITOR.
[2021-05-30] VITALS: BP 109/63
[2021-05-30] MEDS: MORPHINE SULFATE INJ 2 MG/ML DISP.SYRIN IV PRN ×6 (01:35→23:21)
--- NOTE | 2021-05-30 01:35 | NUR ---
MANUFACTURING EXECUTIVE NOTES PT REPORTING PAIN MORPHINE GIVEN AND TOLERATED WELL. WILL CONTINUE TO MONITOR.
[2021-05-30] MEDS: IPRATROPIUM NEB FS 0.5 MG/2.5 ML AMPUL.NEB NEB SCH ×6 (03:30→23:14)
[2021-05-30] MEDS: ALBUTEROL HALF STRENGTH 1.25 MG/3 ML VIAL.NEB NEB SCH ×6 (03:30→23:14)
[2021-05-30 05:00] VITALS: BP 100/56
[2021-05-30 06:17] LABS: BASOPHILS # (AUTO) 0.1 K/uL (0.0-0.2); BASOPHILS % (AUTO) 0.6 % (0.0-2.0); EOSINOPHILS % (AUTO) 3.9 % (0.0-6.0); HEMATOCRIT 30 % (33-45); LYMPHOCYTES # (AUTO) 0.9 K/uL (0.8-4.8); LYMPHOCYTES % (AUTO) 10.2 % (20.0-44.0); MEAN CORPUSCULAR HGB CONC 30 g/dl (31.0-36.0); MEAN CORPUSCULAR VOLUME 78 fL (82-100); MONOCYTES # (AUTO) 0.8 K/uL (0.1-1.30); MONOCYTES % (AUTO) 9.6 % (2.0-12.0); NEUTROPHILS # (AUTO) 6.6 K/uL (1.8-8.9); NEUTROPHILS % (AUTO) 75.7 % (43.0-81.0); PLATELET COUNT (AUTO) 395 K/uL (150-450); WHITE BLOOD COUNT (AUTO) 8.7 K/uL (4.3-11.0)
--- NOTE | 2021-05-30 06:38 | NUR ---
ANALYST COMPETITIVE INTELLIGENCE NOTES PATIENT COMPLAINED OF PAIN. ADMINISTERED MORPHINE 2MG/ML Q4H PRN ORDERED BY HOSPITALIST.
[2021-05-30 06:43] LABS: CALCIUM, SERUM 10.2 mg/dL (8.5-10.1); CARBON DIOXIDE 35 mmol/L (21-32); CHLORIDE 102 mmol/L (98-107); CREATININE 0.5 mg/dL (0.6-1.3); GLUCOSE 87 mg/dL (74-106); MAGNESIUM 2.2 mg/dL (1.8-2.4); POTASSIUM 4.7 mmol/L (3.5-5.1); SODIUM SERUM 137 mmol/L (136-145); UREA NITROGEN, BLOOD 17 mg/dL (7-18)
--- NOTE | 2021-05-30 07:07 | NUR ---
BEATER ROOM HELPER CLOSING NOTES PATIENT STILL AWAKE LAYING IN BED. A/O X4. PATIENT WITH REGULAR AND UNLABORED BREATHING ON NASAL CANULA 2L, TOLERATED WELL. NO SIGNS AND SYMPTOMS OF DISTRESS NOTED. ALL ROUTINE MEDS GIVEN INCLUDING PAIN MEDS FOR PAIN MANAGEMENT. PATIENT IS ON TELE SR @HR 71. CHEST TUBE ON RIGHT SIDE. 360 ML OUTPUT DURING SHIFT CLEAN DRY AND INTACT. IV ACCESS LFA G #20 SL. ACCESS PATENT AND INTACT. SAFETY PRECAUTIONS ENFORCED WITH BED LOCKED AND AT LOWEST POSITION. SIDERAILS UP X2. CALL LIGHT WITHIN REACH AT ALL TIMES WILL ENDORSE DEISI TO DAY SHIFT NURSE.
--- NOTE | 2021-05-30 07:28 | NUR ---
RESP TX DEFERRED PER PTS REQUEST. NO S/S OF SOB NOTED Addendum: 05/30/21 at 0728 by AKIRA ABDUL RT Amended: Links added.
--- NOTE | 2021-05-30 07:55 | NUR ---
FISH HOUSEKEEPER OPENING NOTES RECEIVED PATIENT AWAKE IN BED. A/O X4. PATIENT WITH REGULAR AND UNLABORED BREATHING ON NASAL CANULA 2L, TOLERATED WELL. ON PAIN MEDS FOR PAIN MANAGEMENT. CHEST TUBE ON RIGHT SIDE, DRAINING WELL,CLEAN AND INTACT. IV ACCESS LFA G #20 SL. ACCESS PATENT AND INTACT. SAFETY PRECAUTIONS ENFORCED WITH BED LOCKED AND AT LOWEST POSITION. SIDERAILS UP X2. CALL LIGHT WITHIN REACH. WILL CONTINUE TO MONITOR.
[2021-05-30] MEDS: ENSURE ENLIVE CHOC 237 ML CAN PO SCH ×3 (08:00→16:01)
[2021-05-30 08:14] VITALS: BP 115/64
[2021-05-30] MEDS: PANTOPRAZOLE 40 MG TABLET.DR PO SCH (08:43)
[2021-05-30] MEDS: VENLAFAXINE XR 37.5 MG CAP.SR.24H PO SCH (08:43)
[2021-05-30 11:50] VITALS: BP 109/63
[2021-05-30] MEDS: SOD FERRIC GLUC 125 MG in IV NS 0.9% 100 ML IV SCH (14:00)
[2021-05-30 16:04] VITALS: BP 106/56
--- NOTE | 2021-05-30 18:55 | NUR ---
CERTIFIED NURSE AIDE CLOSING NOTES PATIENT AWAKE LAYING IN BED. A/O X4. PATIENT WITH REGULAR AND UNLABORED BREATHING ON NASAL CANULA 2L, TOLERATED WELL. NO SIGNS AND SYMPTOMS OF DISTRESS NOTED. ALL ROUTINE MEDS GIVEN INCLUDING PAIN MEDS FOR PAIN MANAGEMENT. PATIENT IS ON TELE SR @HR 67. CHEST TUBE ON RIGHT SIDE. 350 ML OUTPUT DURING SHIFT CLEAN DRY AND INTACT. IV ACCESS LFA G #20 SL. ACCESS PATENT AND INTACT. SAFETY PRECAUTIONS ENFORCED WITH BED LOCKED AND AT LOWEST POSITION. SIDERAILS UP X2. CALL LIGHT WITHIN REACH. WILL ENDORSE TO INCOMING SHIFT
--- NOTE | 2021-05-30 19:30 | NUR ---
FUSE SPOOLER OPENING NOTES RECEIVED PATIENT AWAKE LAYING IN BED. A/O X4. PATIENT WITH REGULAR AND UNLABORED BREATHING ON NASAL CANULA 2L, TOLERATED WELL. NO SIGNS AND SYMPTOMS OF DISTRESS NOTED. NO COMPLAIN OF PAIN OR DISCOMFORT AT THIS TIME. PATIENT IS ON TELE SR @HR 78. CHEST TUBE ON RIGHT SIDE. CLEAN DRY AND INTACT. IV ACCESS LFA G #20 SL. ACCESS PATENT AND INTACT. SAFETY PRECAUTIONS ENFORCED WITH BED LOCKED AND AT LOWEST POSITION. SIDERAILS UP X2. CALL LIGHT WITHIN REACH AT ALL TIMES WILL CONTINUE TO MONITOR PATIENT.
[2021-05-30 20:00] VITALS: BP 116/68
--- NOTE | 2021-05-30 20:00 | NUR ---
RT Pt refused hhn tx. No SOB/resp distress noted at this time.
--- NOTE | 2021-05-30 23:22 | NUR ---
CIGARETTE EXAMINER NOTES PATIENT COMPLAINED OF PAIN. ADMINISTERED MORPHINE 2MG/ML IV PUSH Q4H ORDERED BY HOSPITALIST.
[2021-05-31] VITALS: BP 109/57
[2021-05-31] MEDS: MAG HYDROX/AL HYDROX/SIMETH 30 ML UDC PO PRN ×2 (02:48→21:26)
[2021-05-31] MEDS: MORPHINE SULFATE INJ 2 MG/ML DISP.SYRIN IV PRN ×5 (03:28→20:36)
--- NOTE | 2021-05-31 03:29 | NUR ---
SNACK FOODS MIXER OPERATOR NOTES PATIENT COMPLAINED OF PAIN. ADMINISTERED MORPHINE 2MG/ML IV PUSH Q4H ORDERED BY HOSPITALIST.
[2021-05-31] MEDS: ALBUTEROL HALF STRENGTH 1.25 MG/3 ML VIAL.NEB NEB SCH ×6 (03:30→23:28)
[2021-05-31] MEDS: IPRATROPIUM NEB FS 0.5 MG/2.5 ML AMPUL.NEB NEB SCH ×6 (03:30→23:28)
[2021-05-31 04:00] VITALS: BP 110/61
[2021-05-31 06:04] LABS: CALCIUM, SERUM 10.2 mg/dL (8.5-10.1); CREATININE 0.6 mg/dL (0.6-1.3); MAGNESIUM 2.2 mg/dL (1.8-2.4); POTASSIUM 4.5 mmol/L (3.5-5.1)
--- NOTE | 2021-05-31 06:48 | NUR ---
MINUTE CLERK CLOSING NOTES PATIENT STILL AWAKE LAYING IN BED. A/O X4. PATIENT WITH REGULAR AND UNLABORED BREATHING ON NASAL CANULA 2L, TOLERATED WELL. NO SIGNS AND SYMPTOMS OF DISTRESS NOTED. ALL ROUTINE MEDS GIVEN INCLUDING PAIN MEDS FOR PAIN MANAGEMENT. PATIENT IS ON TELE SR @HR 71. CHEST TUBE ON RIGHT SIDE. 350 ML OUTPUT DURING SHIFT CLEAN DRY AND INTACT. IV ACCESS LFA G #20 SL. ACCESS PATENT AND INTACT. SAFETY PRECAUTIONS ENFORCED WITH BED LOCKED AND AT LOWEST POSITION. SIDERAILS UP X2. CALL LIGHT WITHIN REACH AT ALL TIMES WILL ENDORSE DEISI TO DAY SHIFT
[2021-05-31 07:29] LABS: BASOPHILS # (AUTO) 0.1 K/uL (0.0-0.2); BASOPHILS % (AUTO) 0.7 % (0.0-2.0); EOSINOPHILS % (AUTO) 2.9 % (0.0-6.0); HEMATOCRIT 32 % (33-45); HEMOGLOBIN 9.5 g/dL (11.5-14.8); LYMPHOCYTES # (AUTO) 0.7 K/uL (0.8-4.8); LYMPHOCYTES % (AUTO) 7.6 % (20.0-44.0); MEAN CORPUSCULAR HGB CONC 30 g/dl (31.0-36.0); MEAN CORPUSCULAR VOLUME 78 fL (82-100); MONOCYTES # (AUTO) 0.9 K/uL (0.1-1.30); MONOCYTES % (AUTO) 10.3 % (2.0-12.0); NEUTROPHILS % (AUTO) 78.5 % (43.0-81.0); PLATELET COUNT (AUTO) 397 K/uL (150-450); RED BLOOD CELL COUNT(AUTO) 4.04 MIL/uL (4.0-5.2)
--- NOTE | 2021-05-31 07:48 | NUR ---
RN OPENING NOTE- RECEIVED PATIENT AWAKE LAYING IN BED. A/O X4. PATIENT WITH REGULAR AND NON-LABORED BREATHING ON NASAL CANULA 2L, SATS AT 94%. TOLERATED WELL. NO SIGNS AND SYMPTOMS OF DISTRESS NOTED. NO COMPLAINT OF PAIN OR DISCOMFORT AT THIS TIME. PATIENT IS ON TELE SR @HR 80. CHEST TUBE ON RIGHT SIDE. CLEAN DRY AND INTACT. IV ACCESS LFA G #20 SL. ACCESS PATENT AND INTACT. SAFETY PRECAUTIONS WITH BED LOCKED AND AT LOWEST POSITION. SIDERAILS UP X2. CALL LIGHT WITHIN REACH AT ALL TIMES WILL CONTINUE TO MONITOR PATIENT.
[2021-05-31] MEDS: ENSURE ENLIVE CHOC 237 ML CAN PO SCH ×3 (08:04→17:55)
[2021-05-31] MEDS: PANTOPRAZOLE 40 MG TABLET.DR PO SCH (08:25)
[2021-05-31] MEDS: VENLAFAXINE XR 37.5 MG CAP.SR.24H PO SCH (08:37)
[2021-05-31 08:39] VITALS: BP 118/68
--- NOTE | 2021-05-31 09:37 | NUR ---
CARMELITA reached out to multiple animal welfare, and pt.'s bird does not meet the requirement. The animal welfare locations are willing to take only cats and dogs. CARMELITA reached out to pt.'s social service technician, Erika [[phone]], and left VM. CARMELITA will contact her again.
--- NOTE | 2021-05-31 15:15 | NUR ---
RN NOTE- PNUEMOVAC CANISTER REPLACED AT THIS TIME . 1940 CC OUTPUT NOTED IN PREVIOUS. TOLERATED WELL.
[2021-05-31 15:55] VITALS: BP 108/61
--- NOTE | 2021-05-31 18:27 | NUR ---
RN CLOSING NOTE- PT IN BED, QUIET WITHDRAWN. CHEST TUBE DRAINING W LOW SUCTION. 30 CC SINCE REPLACING PLUERAVAC . PAIN RELIEVED W RX, PO INTAKE FAIR. SIDE RAILS UP, BED LOCKED, VS STABLE. MONITOR / ASSIST
[2021-05-31 20:00] VITALS: BP 108/57
--- NOTE | 2021-05-31 20:10 | NUR ---
RT Pt refused hhn tx. No SOB/resp distress noted at this time.
--- NOTE | 2021-05-31 21:26 | NUR ---
RN notes Pt's complaining of heart burn and requesting maalox. Administered maalox 30 ml/po/prn as ordered for heart burn. Will continue to monitor.
--- NOTE | 2021-06-01 | NUR ---
MS RN OPENING NOTES LATE ENTRY: RECEIVED REPORT AT PATIENT'S BEDSIDE. PATIENT AWAKE, ALERT AND ORIENTED TO BASELINE. NAD. VSS. R CHEST TUBE DRAINING SEROSANGUINEOUS FLUID TO VAC CHAMBER. DRESSING TO C-TUBE SITE C/D/I. DENIES SOB AT THIS TIME.
[2021-06-01] MEDS: ALBUTEROL HALF STRENGTH 1.25 MG/3 ML VIAL.NEB NEB SCH ×6 (03:28→23:13)
[2021-06-01] MEDS: IPRATROPIUM NEB FS 0.5 MG/2.5 ML AMPUL.NEB NEB SCH ×6 (03:28→23:13)
[2021-06-01] MEDS: MORPHINE SULFATE INJ 2 MG/ML DISP.SYRIN IV PRN ×4 (05:38→20:30)
[2021-06-01 06:17] LABS: BASOPHILS % (AUTO) 0.4 % (0.0-2.0); EOSINOPHILS % (AUTO) 2.7 % (0.0-6.0); HEMATOCRIT 34 % (33-45); HEMOGLOBIN 10.1 g/dL (11.5-14.8); LYMPHOCYTES # (AUTO) 0.9 K/uL (0.8-4.8); LYMPHOCYTES % (AUTO) 8.6 % (20.0-44.0); MEAN CORPUSCULAR HGB CONC 30 g/dl (31.0-36.0); MEAN CORPUSCULAR VOLUME 79 fL (82-100); MONOCYTES % (AUTO) 9.7 % (2.0-12.0); NEUTROPHILS # (AUTO) 8.1 K/uL (1.8-8.9); NEUTROPHILS % (AUTO) 78.6 % (43.0-81.0); PLATELET COUNT (AUTO) 464 K/uL (150-450); RED BLOOD CELL COUNT(AUTO) 4.33 MIL/uL (4.0-5.2); WHITE BLOOD COUNT (AUTO) 10.3 K/uL (4.3-11.0)
--- NOTE | 2021-06-01 06:58 | NUR ---
MS RN CLOSING NOTES: PATIENT IN BED, EYES CLOSED, BREATHING EVEN AND UNLABORED, EASILY AROUSED. CALM AND COOPERATIVE THROUGHOUT THE SHIFT. DENIES PAIN AT THIS TIME. R CHEST TUBE IN PLACE CONTINUES DRAINING SEROSANGUINEOUS FLUID. DRESSING TO INSERTION SITE C/D/I.
[2021-06-01 07:24] LABS: CREATININE 0.6 mg/dL (0.6-1.3); MAGNESIUM 2.4 mg/dL (1.8-2.4); POTASSIUM 4.6 mmol/L (3.5-5.1)
--- NOTE | 2021-06-01 07:48 | NUR ---
RN OPENING NOTE- PATIENT AWAKE LAYING IN BED. A/O X4. PATIENT WITH REGULAR AND NON-LABORED BREATHING ON NASAL CANULA 2L, SATS AT 97%. TOLERATED WELL. NO SIGNS AND SYMPTOMS OF DISTRESS NOTED. PAIN MED REQUESTED. GENERALIZED DISCOMFORT. CHEST TUBE ON RIGHT SIDE. CLEAN DRY AND INTACT. IV ACCESS LFA G #20 SL. ACCESS PATENT AND INTACT. SAFETY PRECAUTIONS WITH BED LOCKED AND AT LOWEST POSITION. SIDERAILS UP X2. CALL LIGHT WITHIN REACH AT ALL TIMES WILL CONTINUE TO MONITOR PATIENT.
[2021-06-01 08:00] VITALS: BP 100/60
--- NOTE | 2021-06-01 08:02 | NUR ---
RT Pt is awake/alert and refusing HHN tx. No SOB or respiratory distress noted.
[2021-06-01] MEDS: PANTOPRAZOLE 40 MG TABLET.DR PO SCH (08:09)
[2021-06-01] MEDS: VENLAFAXINE XR 37.5 MG CAP.SR.24H PO SCH (08:09)
[2021-06-01] MEDS: ASCORBIC ACID 500 MG TABLET PO SCH (08:09)
[2021-06-01] MEDS: FERROUS SULFATE (325 MG) 325 MG/TAB TABLET PO SCH ×2 (08:10→17:13)
[2021-06-01] MEDS: ENSURE ENLIVE CHOC 237 ML CAN PO SCH ×3 (08:10→17:13)
--- NOTE | 2021-06-01 10:17 | NUR ---
RN NOTE- DR ROJAS ORDERED PNEUMOVAC TO BE REMOVED AND CT ATTACHED TO YBARRA CATHETER DRAINAGE BAG. COMPLYING
--- NOTE | 2021-06-01 10:53 | NUR ---
RN NOTE- PNEUMOVAC DISCONTINUED AT THIS TIME . [address] IN [address] ATTACHED TO YBARRA DRAINAGE BAG PER DR ROJAS. TOLERATED WELL.
[2021-06-01 16:00] VITALS: BP 98/50
--- NOTE | 2021-06-01 18:33 | NUR ---
RN CLOSING NOTE- PT W CT DRAINING TO GRAVITY TO YBARRA CATHETER BAG. INITIATED AT 11AM. 100 CC OUTPUT UP TO THIS TIME. TOLERATING WELL. PAIN RELIEVED W MSO4. PO INTAKE FAIR. FOR PLACEMENT . FOR CXR. SIDE RAILS UP. CALL LIGHT IN REACH BSC W ASSIST. MONITOR.
--- NOTE | 2021-06-01 19:10 | NUR ---
RN opening notes Received Pt from morning nurse. Pt is laying in bed awake and comfortable. Pt is alert and orinetedX4. Respiration is normal in 2 L NC. No SOB. No S/S of distress noted. IV site at LFA# 20 is clean, intact, flushes well and SL. Chest tube is intact and draining to gravity to yost catherer bag. safety precautions is maintained. Bed at low position, brakes locked, side rails upX3 and call light is within reach. Will continue to monitor.
[2021-06-01 20:00] VITALS: BP 99/53
--- NOTE | 2021-06-01 20:15 | NUR ---
RN notes Pt refused breathing tx. explained risks and benefits. Pt keep refusing. Offered multiple times. O2 sat is 99% on 2 L NC.
--- NOTE | 2021-06-01 20:30 | NUR ---
RN notes Pt is complaining of pain on chest tube and requesting morphine. Administered morphine 2 mg/iv push/prn as ordered for pain. Safety precautions is maintained. Will continue to monitor.
[2021-06-01 21:01] VITALS: BP 102/59
[2021-06-02] MEDS: ALBUTEROL HALF STRENGTH 1.25 MG/3 ML VIAL.NEB NEB SCH ×6 (03:30→23:30)
[2021-06-02] MEDS: IPRATROPIUM NEB FS 0.5 MG/2.5 ML AMPUL.NEB NEB SCH ×6 (03:30→23:30)
[2021-06-02] MEDS: MORPHINE SULFATE INJ 2 MG/ML DISP.SYRIN IV PRN ×5 (04:56→21:37)
[2021-06-02 06:49] LABS: BASOPHILS # (AUTO) 0.1 K/uL (0.0-0.2); BASOPHILS % (AUTO) 0.6 % (0.0-2.0); EOSINOPHILS % (AUTO) 6.3 % (0.0-6.0); HEMATOCRIT 32 % (33-45); HEMOGLOBIN 9.9 g/dL (11.5-14.8); LYMPHOCYTES # (AUTO) 0.9 K/uL (0.8-4.8); LYMPHOCYTES % (AUTO) 9.7 % (20.0-44.0); MEAN CORPUSCULAR HGB CONC 30 g/dl (31.0-36.0); MEAN CORPUSCULAR VOLUME 79 fL (82-100); MONOCYTES # (AUTO) 1.1 K/uL (0.1-1.30); MONOCYTES % (AUTO) 11.4 % (2.0-12.0); NEUTROPHILS # (AUTO) 6.7 K/uL (1.8-8.9); PLATELET COUNT (AUTO) 383 K/uL (150-450); RED BLOOD CELL COUNT(AUTO) 4.12 MIL/uL (4.0-5.2); WHITE BLOOD COUNT (AUTO) 9.3 K/uL (4.3-11.0)
[2021-06-02 07:14] LABS: CALCIUM, SERUM 10.7 mg/dL (8.5-10.1); CARBON DIOXIDE 36 mmol/L (21-32); CHLORIDE 102 mmol/L (98-107); CREATININE 0.5 mg/dL (0.6-1.3); GLUCOSE 88 mg/dL (74-106); MAGNESIUM 2.4 mg/dL (1.8-2.4); PHOSPHORUS 2.4 mg/dL (2.5-4.9); POTASSIUM 4.8 mmol/L (3.5-5.1); SODIUM SERUM 139 mmol/L (136-145); UREA NITROGEN, BLOOD 18 mg/dL (7-18)
--- NOTE | 2021-06-02 07:20 | NUR ---
RN OPENING NOTE RECEIVED PATIENT IN BED, AWAKE. A/O X 4. ON 02 AT 3 LPM VIA NC. IN NO APPARENT DISTRESS. R CHEST TUBE CONNECTED TO A YBARRA BAG, DRAINING SEROSANGUINEOUS. ABLE TO MAKE NEEDS KNOWN. IV ACCESS ON LFA #20 G, INTACT AND PATENT. SAFETY MEASURES MAINTAINED. BED IN LOWEST POSITION, BRAKES LOCKED. SIDE RAILS UP X2. CALL LIGHT WITHIN REACH. WILL CONTINUE PLAN OF CARE.
[2021-06-02 08:00] VITALS: BP 87/43
--- NOTE | 2021-06-02 08:30 | NUR ---
RT PATIENT AWAKE/ALERT. PATIENT REFUSING HHN TX AT THIS TIME. NO SOB NOTED.
[2021-06-02] MEDS: FERROUS SULFATE (325 MG) 325 MG/TAB TABLET PO SCH ×2 (09:06→16:12)
[2021-06-02] MEDS: PANTOPRAZOLE 40 MG TABLET.DR PO SCH (09:06)
[2021-06-02] MEDS: ASCORBIC ACID 500 MG TABLET PO SCH (09:06)
[2021-06-02] MEDS: VENLAFAXINE XR 37.5 MG CAP.SR.24H PO SCH (09:06)
[2021-06-02] MEDS: ENSURE ENLIVE CHOC 237 ML CAN PO SCH ×3 (09:07→17:47)
[2021-06-02] MEDS ORDERED: NEUTRA PHOS 1 POWD.PACKET PO ONE (13:30)
--- NOTE | 2021-06-02 13:31 | NUR ---
RN NOTE DR ROJAS ORDERED TO CONNECT PT'S CHEST TUBE TO A WATER SEAL CHAMBER WITH 20 CM WATER SUCTION AND TO TO DO STAT CHEST XRAY AFTER 1 HOUR OF DRAINING. ORDER READ BACK AND CARRIED OUT.
[2021-06-02 16:00] VITALS: BP 102/59
--- NOTE | 2021-06-02 18:09 | NUR ---
RN CLOSING NOTE PATIENT RESTING IN BED, AWAKE. A/O X 4. ON 02 AT 3 LPM VIA NC. IN NO APPARENT DISTRESS. R CHEST TUBE CONNECTED TO 20 CM WATER SUCTION, DRAINING SEROSANGUINEOUS, 160 CC OUTPUT. DUE MEDS GIVEN ORDERED. ALL NEEDS HAVE BEEN MET AND ATTENDED. IV ACCESS ON LFA #20 G, INTACT AND PATENT. SAFETY MEASURES MAINTAINED. BED IN LOWEST POSITION, BRAKES LOCKED. SIDE RAILS UP X2. KEPT CALL LIGHT WITHIN REACH. WILL ENDORSE CONTINUITY OF CARE TO ONCOMING SHIFT.
--- NOTE | 2021-06-02 19:30 | NUR ---
MS RN OPENING NOTE RECEIVED PT AWAKE IN BED. A/O X 4. ON 02 AT 3 LPM VIA NC. NO SOB OR S/S OF RESPIRATORY DISTRESS. R CHEST TUBE CONNECTED TO 20 CM WATER SUCTION, DRAINING SEROSANGUINEOUS, 160 CC OUTPUT. IV ACCESS ON LFA #20 G, INTACT AND PATENT. SAFETY MEASURES MAINTAINED. BED IN LOWEST LOCKED POSITION, HOB ELEVATED, SIDE RAILS UP X2, AND CALL LIGHT AND TABLE WITHIN REACH. WILL CONTINUE TO MONITOR.
[2021-06-02 20:00] VITALS: BP 114/66
--- NOTE | 2021-06-02 21:35 | NUR ---
RN NOTES Patient complained of pain on her chest tube site- Morphine 2 m IV given as ordered, V/S stable
--- NOTE | 2021-06-02 23:58 | NUR ---
RT pt refused neb tx. notified haroon paul
[2021-06-03] MEDS: MORPHINE SULFATE INJ 2 MG/ML DISP.SYRIN IV PRN ×5 (01:55→20:41)
--- NOTE | 2021-06-03 01:56 | NUR ---
RN NOTES PT COMPLAINED OF PAIN ON HER CHEST TUBE SITE. ADMINISTERED MORPHINE 2 MG IV ORDERED. VSS.
[2021-06-03] MEDS: IPRATROPIUM NEB FS 0.5 MG/2.5 ML AMPUL.NEB NEB SCH ×6 (03:30→23:30)
[2021-06-03] MEDS: ALBUTEROL HALF STRENGTH 1.25 MG/3 ML VIAL.NEB NEB SCH ×6 (03:30→23:30)
--- NOTE | 2021-06-03 06:05 | NUR ---
RN NOTES PT COMPLAINED OF PAIN 8/10 ON HER CHEST TUBE SITE. ADMINISTERED MORPHINE 2 MG IV ORDERED. VSS.
--- NOTE | 2021-06-03 06:42 | NUR ---
MS RN CLOSING NOTE PT IN BED EYES CLOSED, EASILY AROUSABLE. A/O X 4. ON 02 AT 3 LPM VIA NC. NO SOB OR S/S OF RESPIRATORY DISTRESS. R CHEST TUBE CONNECTED TO 20 CM WATER SUCTION, DRAINING SEROSANGUINEOUS, 180 CC OUTPUT. IV ACCESS ON LFA #20 G, INTACT AND PATENT. ALL NEEDS MET AT THIS TIME. SAFETY MEASURES MAINTAINED AT ALL TIMES. BED IN LOWEST LOCKED POSITION, HOB ELEVATED, SIDE RAILS UP X2, AND CALL LIGHT AND TABLE WITHIN REACH. WILL ENDORSE TO ONCOMING NURSE FOR DEISI.
[2021-06-03 06:43] LABS: BASOPHILS # (AUTO) 0.1 K/uL (0.0-0.2); BASOPHILS % (AUTO) 0.7 % (0.0-2.0); EOSINOPHILS % (AUTO) 4.5 % (0.0-6.0); HEMATOCRIT 32 % (33-45); HEMOGLOBIN 9.6 g/dL (11.5-14.8); LYMPHOCYTES % (AUTO) 11.5 % (20.0-44.0); MEAN CORPUSCULAR HGB CONC 30 g/dl (31.0-36.0); MEAN CORPUSCULAR VOLUME 79 fL (82-100); MONOCYTES # (AUTO) 0.9 K/uL (0.1-1.30); MONOCYTES % (AUTO) 10.7 % (2.0-12.0); NEUTROPHILS # (AUTO) 6.3 K/uL (1.8-8.9); NEUTROPHILS % (AUTO) 72.6 % (43.0-81.0); PLATELET COUNT (AUTO) 361 K/uL (150-450); RED BLOOD CELL COUNT(AUTO) 4.06 MIL/uL (4.0-5.2); WHITE BLOOD COUNT (AUTO) 8.8 K/uL (4.3-11.0)
--- NOTE | 2021-06-03 07:30 | NUR ---
MS RN OPENING NOTES RECEIVED PATIENT ON BED, AWAKE AND A/O X 4. ON O2 AT 3LPM VIA NASAL CANNULA SATURATING AT 100%. NOT IN DISTRESS. WITH NO COMPLAINTS OF PAIN OR DISCOMFORT AT THIS TIME. WITH RIGHT CHEST TUBE CONNECTED TO 20CM WATER SUCTION DRAINING SEROSANGUINEOUS FLUID AT LEVEL 300CC OUTPUT. WITH IV ACCESS AT LEFT FOREARM G20, SALINE LOCKED, PATENT AND INTACT. SAFETY MEASURES IN PLACED. CALL LIGHT WITHIN REACH. BED ON LOWEST LOCKED POSITION, SIDE RAILS UP X2. WILL CONTINUE TO MONITOR.
[2021-06-03] MEDS: PANTOPRAZOLE 40 MG TABLET.DR PO SCH (07:50)
[2021-06-03] MEDS: ENSURE ENLIVE CHOC 237 ML CAN PO SCH ×3 (07:51→16:45)
[2021-06-03 08:00] VITALS: BP 103/52
[2021-06-03 08:33] LABS: CALCIUM, SERUM 10.1 mg/dL (8.5-10.1); CARBON DIOXIDE 32 mmol/L (21-32); CHLORIDE 102 mmol/L (98-107); GLUCOSE 102 mg/dL (74-106); POTASSIUM 4.5 mmol/L (3.5-5.1); SODIUM SERUM 137 mmol/L (136-145)
[2021-06-03 08:34] LABS: ALANINE AMINOTRANSFERASE 8 U/L (12-78); ALBUMIN 2.6 g/dL (3.4-5.0); ALKALINE PHOSPHATASE 104 U/L (46-116); ASPARTATE AMINOTRANSFERASE 13 U/L (15-37); BILIRUBIN,TOTAL 0.2 mg/dL (0.2-1.0); CREATININE 0.5 mg/dL (0.6-1.3); MAGNESIUM 2.3 mg/dL (1.8-2.4); TOTAL PROTEIN, SERUM 6.6 g/dL (6.4-8.2); UREA NITROGEN, BLOOD 19 mg/dL (7-18)
[2021-06-03] MEDS: ASCORBIC ACID 500 MG TABLET PO SCH (08:37)
[2021-06-03] MEDS: FERROUS SULFATE (325 MG) 325 MG/TAB TABLET PO SCH ×2 (08:37→16:27)
[2021-06-03] MEDS: VENLAFAXINE XR 37.5 MG CAP.SR.24H PO SCH (08:37)
[2021-06-03 16:00] VITALS: BP 106/59
[2021-06-03] MEDS: MAG HYDROX/AL HYDROX/SIMETH 30 ML UDC PO PRN (16:26)
--- NOTE | 2021-06-03 18:39 | NUR ---
MS RN CLOSING NOTES PATIENT ON RESTING ON BED AND A/O X 4. ON O2 AT 3LPM VIA NASAL CANNULA SATURATING AT 98%. NOT IN DISTRESS. WITH NO COMPLAINTS OF PAIN OR DISCOMFORT AT THIS TIME. WITH RIGHT CHEST TUBE CONNECTED TO 20CM WATER SUCTION DRAINING SEROSANGUINEOUS FLUID AT LEVEL 300CC OUTPUT. WITH IV ACCESS AT RIGHT FOREARM G20, SALINE LOCKED, PATENT AND INTACT. SAFETY MEASURES IN PLACED. CALL LIGHT WITHIN REACH. BED ON LOWEST LOCKED POSITION, SIDE RAILS UP X2. WILL ENDORSE TO NEXT SHIFT FOR DEISI.
--- NOTE | 2021-06-03 19:00 | NUR ---
MS RN OPENING NOTE RECEIVED PT AWAKE IN BED. A/OX4. PT IS STABLE ON 3LPM OXYGEN VIA NC. NO SOB NOTED. NO S/S RESPIRATORY DISTRESS. PT IS BEDREST WITH BEDSIDE COMMODE IN PLACE. PT HAS NO C/O PAIN AT THIS TIME. IV ACCESS IN RIGHT FOREARM G #20, IV IS INTACT, PATENT, AND FLUSHING WELL. RIGHT CHEST TUBE CONNECTED TO 20CM WATER SUCTION DRAINING SEROSANGUINEOUS FLUID AT LEVEL 300CC OUTPUT. SAFETY MEASURES MAINTAINED . BED IN LOWEST LOCKED POSITION, HOB ELEVATED, SIDE RAILS UP X2. CALL LIGHT AND TABLE WITHIN REACH. WILL CONTINUE WITH PLAN OF CARE. Addendum: 06/03/21 at 2337 by VERNON VALDEZ RN MS RN OPENING NOTE RECEIVED PT AWAKE IN BED. A/OX4. PT IS STABLE ON 3LPM OXYGEN VIA NC. NO SOB NOTED. NO S/S RESPIRATORY DISTRESS. PT IS BEDREST WITH BEDSIDE COMMODE IN PLACE. PT HAS NO C/O PAIN AT THIS TIME. IV ACCESS IN RIGHT FOREARM G #20, IV IS INTACT, PATENT, AND FLUSHING WELL. RIGHT CHEST TUBE CONNECTED TO 20CM WATER SUCTION DRAINING SEROSANGUINEOUS FLUID AT LEVEL 500CC OUTPUT. SAFETY MEASURES MAINTAINED . BED IN LOWEST LOCKED POSITION, HOB ELEVATED, SIDE RAILS UP X2. CALL LIGHT AND TABLE WITHIN REACH. WILL CONTINUE WITH PLAN OF CARE.
[2021-06-03 20:00] VITALS: BP 97/55
--- NOTE | 2021-06-03 20:41 | NUR ---
PT C/O ACHING PAIN OF 9/10 AT THE CHEST TUBE INSERTION SITE, PER PT REQUEST MORPHINE 2MG/1ML IV Q4HR PRN ADMINISTERED AT THIS TIME PER ORDER. WILL CONTINUE TO MONITOR.
[2021-06-04] MEDS: MORPHINE SULFATE INJ 2 MG/ML DISP.SYRIN IV PRN ×5 (01:19→22:07)
--- NOTE | 2021-06-04 01:19 | NUR ---
PT C/O ACHING PAIN OF 9/10 AT THE CHEST TUBE INSERTION SITE, PER PT REQUEST MORPHINE 2MG/1ML IV Q4HR PRN ADMINISTERED AT THIS TIME PER ORDER. WILL CONTINUE TO MONITOR
[2021-06-04] MEDS: ALBUTEROL HALF STRENGTH 1.25 MG/3 ML VIAL.NEB NEB SCH ×6 (03:30→23:30)
[2021-06-04] MEDS: IPRATROPIUM NEB FS 0.5 MG/2.5 ML AMPUL.NEB NEB SCH ×6 (03:30→23:30)
--- NOTE | 2021-06-04 06:30 | NUR ---
MS RN CLOSING NOTE PT RESTING COMFORTABLY IN BED AT THIS TIME, EASY TO AROUSE. STABLE ON 3L OXYGEN VIA NASAL CANNULA. PT REMAINED STABLE THROUGHOUT SHIFT. ALL NEEDS, MEDICATIONS, AND CARE ADMINISTERED ANTICIPATED PER ORDER; PAIN CONTROL ADMINISTERED PER ORDER. PT REPOSITIONED Q2HR AND PRN. RIGHT CHEST TUBE CONNECTED TO 20CM WATER SUCTION DRAINING SEROSANGUINEOUS FLUID AT LEVEL 510 CC OUTPUT. SAFETY PRECAUTIONS IN PLACE AND MAINTAINED AT ALL TIMES. BED IN LOWEST LOCKED POSITION, HOB ELEVATED, SIDE RAILS UP X2. CALL LIGHT AND TABLE WITHIN REACH. WILL ENDORSE TO MORNING SHIFT NURSE FOR DEISI.
[2021-06-04 06:51] LABS: BASOPHILS # (AUTO) 0.1 K/uL (0.0-0.2); BASOPHILS % (AUTO) 0.5 % (0.0-2.0); HEMATOCRIT 33 % (33-45); LYMPHOCYTES # (AUTO) 0.8 K/uL (0.8-4.8); MEAN CORPUSCULAR HGB CONC 30 g/dl (31.0-36.0); MEAN CORPUSCULAR VOLUME 79 fL (82-100); MONOCYTES # (AUTO) 1.1 K/uL (0.1-1.30); MONOCYTES % (AUTO) 10.4 % (2.0-12.0); NEUTROPHILS # (AUTO) 7.8 K/uL (1.8-8.9); NEUTROPHILS % (AUTO) 77.1 % (43.0-81.0); PLATELET COUNT (AUTO) 351 K/uL (150-450); WHITE BLOOD COUNT (AUTO) 10.1 K/uL (4.3-11.0)
[2021-06-04 07:16] LABS: ALBUMIN 2.6 g/dL (3.4-5.0); BILIRUBIN,TOTAL 0.1 mg/dL (0.2-1.0); CALCIUM, SERUM 10.6 mg/dL (8.5-10.1); CREATININE 0.6 mg/dL (0.6-1.3); MAGNESIUM 2.4 mg/dL (1.8-2.4); PHOSPHORUS 2.5 mg/dL (2.5-4.9); POTASSIUM 4.7 mmol/L (3.5-5.1); TOTAL PROTEIN, SERUM 6.7 g/dL (6.4-8.2)
[2021-06-04] MEDS: ENSURE ENLIVE CHOC 237 ML CAN PO SCH ×3 (08:00→16:59)
[2021-06-04 08:22] VITALS: BP 91/50
[2021-06-04] MEDS: ASCORBIC ACID 500 MG TABLET PO SCH (08:47)
[2021-06-04] MEDS: VENLAFAXINE XR 37.5 MG CAP.SR.24H PO SCH (08:47)
[2021-06-04] MEDS: FERROUS SULFATE (325 MG) 325 MG/TAB TABLET PO SCH ×2 (08:47→18:19)
[2021-06-04] MEDS: PANTOPRAZOLE 40 MG TABLET.DR PO SCH (08:47)
--- NOTE | 2021-06-04 09:00 | NUR ---
m/s medical doctor md: pulmo f/u seen and examined by dr. leung at this time.
--- NOTE | 2021-06-04 11:10 | NUR ---
RT NOTE PT DIFFERED TX AT THIS TIME. NO SOB NOTED. RN JOSSIE MYERS
--- NOTE | 2021-06-04 15:12 | NUR ---
RT NOTE PT DIFFERED TX AT THIS TIME. NO SOB NOTED. RN JOSSIE MYERS
[2021-06-04 16:07] VITALS: BP 99/51
[2021-06-04 16:18] VITALS: BP 113/59
--- NOTE | 2021-06-04 18:15 | NUR ---
m/s numerical control machine machinist: thoracic surgeon seen and examined by dr. olvera and informed me that he will talk to dr. leung about removing the chest tube. Chest tube still on wall suction, no leak. no s/s of resp. distress noted. needs attended. will continue to monitor.
--- NOTE | 2021-06-04 19:10 | NUR ---
MS OPENING NOTE PATIENT RECEIVED AWAKE IN BED. PATIENT APPEARS IN A PLEASANT MOOD. NO S/S OF DISTRESS, BREATHING UNLABORED. CHEST TUBE DRAIN PATENT AND DRAINING. IV RFA #20 G. BED ALARM TURNED ON TO ENSURE FURTHER SAFETY PROTOCOLS AND TO AID HER TO HER BEDSIDE COMMODE PRN. SAFETY MEASURES IN PLACE: BED AT LOWEST POSITION, RAILS UP X2, CALL ELLISON WITHIN REACH. WILL CONTINUE TO MONITOR PATIENT.
--- NOTE | 2021-06-04 19:15 | NUR ---
m/s wage conciliator: notes bedside report given to flor (rn) for continuity of care.
[2021-06-04 20:03] VITALS: BP 101/60
[2021-06-05] MEDS: MORPHINE SULFATE INJ 2 MG/ML DISP.SYRIN IV PRN ×5 (02:08→21:01)
[2021-06-05] MEDS: IPRATROPIUM NEB FS 0.5 MG/2.5 ML AMPUL.NEB NEB SCH ×6 (03:30→23:30)
[2021-06-05] MEDS: ALBUTEROL HALF STRENGTH 1.25 MG/3 ML VIAL.NEB NEB SCH ×6 (03:30→23:30)
--- NOTE | 2021-06-05 06:32 | NUR ---
MS CLOSING NOTE PATIENT IS ASLEEP IN BED. A/OX4. NO S/S OF DISTRESS, BREATHING UNLABORED. IV RFA #20G PATENT INTACT W/ NO IVF RUNNING AT THIS TIME. SAFETY MEASURES IN PLACE: BED AT LOWEST POSITION, RAILS UP X2, CALL ELLISON WITHIN REACH. WILL ENDORSE TO THE NEXT SHIFT FOR DEISI.
[2021-06-05 07:36] LABS: BASOPHILS # (AUTO) 0.1 K/uL (0.0-0.2); BASOPHILS % (AUTO) 0.6 % (0.0-2.0); EOSINOPHILS % (AUTO) 4.9 % (0.0-6.0); HEMATOCRIT 32 % (33-45); HEMOGLOBIN 9.7 g/dL (11.5-14.8); LYMPHOCYTES # (AUTO) 1.1 K/uL (0.8-4.8); LYMPHOCYTES % (AUTO) 11.2 % (20.0-44.0); MEAN CORPUSCULAR HGB CONC 30 g/dl (31.0-36.0); MEAN CORPUSCULAR VOLUME 80 fL (82-100); MONOCYTES # (AUTO) 0.8 K/uL (0.1-1.30); MONOCYTES % (AUTO) 8.5 % (2.0-12.0); NEUTROPHILS # (AUTO) 7.3 K/uL (1.8-8.9); NEUTROPHILS % (AUTO) 74.8 % (43.0-81.0); PLATELET COUNT (AUTO) 346 K/uL (150-450); RED BLOOD CELL COUNT(AUTO) 3.99 MIL/uL (4.0-5.2); WHITE BLOOD COUNT (AUTO) 9.7 K/uL (4.3-11.0)
--- NOTE | 2021-06-05 07:40 | NUR ---
MS RN OPENING NOTE PATIENT IS ASLEEP IN BED WITH EYES CLOSED, ABLE TO BE AWOKEN. PT IS A/OX4 WITH NO S/S OF RESPIRATORY DISTRESS OR DISCOMFORT AT THIS TIME. RIGHT FA #20G IN PLACE AND PATENT W/ NO IVF RUNNING AT THIS TIME. R CHEST TUBE IN PLACE WITH WALL SUCTION AT [id number] DRAINING SEROSANGUINOUS FLD. SAFETY MEASURES IN PLACE: BED IS LOCKED IN LOWEST POSITION, RAILS UP X2, CALL LIGHT WITHIN REACH. WILL CONTINUE TO MONITOR PT.
[2021-06-05 07:57] LABS: ALBUMIN 2.6 g/dL (3.4-5.0); BILIRUBIN,TOTAL 0.1 mg/dL (0.2-1.0); CALCIUM, SERUM 10.4 mg/dL (8.5-10.1); CREATININE 0.6 mg/dL (0.6-1.3); MAGNESIUM 2.4 mg/dL (1.8-2.4); PHOSPHORUS 2.7 mg/dL (2.5-4.9); POTASSIUM 4.7 mmol/L (3.5-5.1); TOTAL PROTEIN, SERUM 6.8 g/dL (6.4-8.2)
[2021-06-05 08:00] VITALS: BP 102/56
[2021-06-05] MEDS: ASCORBIC ACID 500 MG TABLET PO SCH (08:16)
[2021-06-05] MEDS: VENLAFAXINE XR 37.5 MG CAP.SR.24H PO SCH (08:16)
[2021-06-05] MEDS: FERROUS SULFATE (325 MG) 325 MG/TAB TABLET PO SCH ×2 (08:16→16:51)
[2021-06-05] MEDS: PANTOPRAZOLE 40 MG TABLET.DR PO SCH (08:16)
[2021-06-05] MEDS: ENSURE ENLIVE CHOC 237 ML CAN PO SCH ×2 (08:24→12:05)
[2021-06-05 16:00] VITALS: BP 100/61
[2021-06-05] MEDS: ENSURE ENLIVE 237 ML LIQUID (VANILLA) PO SCH (17:53)
--- NOTE | 2021-06-05 18:40 | NUR ---
MS RN CLOSING NOTE PT IS RESTING IN BED WITH EYES CLOSED, EASY TO AROUSE. NO S/S OF RESPIRATORY DISTRESS ON 3L OXYGEN VIA NASAL CANNULA. PT REMAINED STABLE THROUGHOUT SHIFT WITH V/S WNL. RIGHT CHEST TUBE CONNECTED TO 25CM WATER SUCTION WITH 210ML DRAINAGE OF SEROSANGUINEOUS FLUID. SAFETY PRECAUTIONS IN PLACE: BED IS LOCKED AND IN LOWEST POSITION, SIDE RAILS UP X2, CALL LIGHT WITHIN REACH. WILL ENDORSE TO ONCOMING SHIFT FOR DEISI.
--- NOTE | 2021-06-05 19:20 | NUR ---
MS/RN OPENING NOTES PT AWAKE IN BED, A/OX4, ABLE TO VERBALIZE NEEDS. NO C/O PAIN AT THIS TIME. ON O2 @3LPM VIA N/C. RESPIRATIONS EVEN/UNLABORED. PT DENIES SOB. R-CHEST TUBE IN PLACE AND DRAINING WELL. IV SITE: R-FA #20G INTACT/PATENT/FLUSHES WELL. PT IN NO ACUTE DISTRESS. SAFETY MEASURES IN PLACE, BED IN LOWEST LOCKED POSITION, S/R UPX2, CALL LIGHT WITHIN REACH. WILL CONT TO MONITOR.
[2021-06-05 20:00] VITALS: BP 104/59
--- NOTE | 2021-06-05 20:15 | NUR ---
RT NOTE PT REFUSED HHN TX @ THIS TIME. NO SOB NOTED.
--- NOTE | 2021-06-05 21:26 | NUR ---
RN NOTE ASSISTED TO BEDSIDE COMMODE TO VOID. GABRIELA. WELL.
--- NOTE | 2021-06-06 00:01 | NUR ---
RT NOTE PT SLEEPING. ASKED NOT TO BE WOKEN UP TONIGHT. NO SOB NOTED @ THIS TIME. WILL CONT TO MONITOR.
[2021-06-06] MEDS: MORPHINE SULFATE INJ 2 MG/ML DISP.SYRIN IV PRN ×5 (02:59→22:05)
[2021-06-06] MEDS: ALBUTEROL HALF STRENGTH 1.25 MG/3 ML VIAL.NEB NEB SCH ×6 (03:30→23:30)
[2021-06-06] MEDS: IPRATROPIUM NEB FS 0.5 MG/2.5 ML AMPUL.NEB NEB SCH ×6 (03:30→23:30)
--- NOTE | 2021-06-06 05:30 | NUR ---
RN NOTE ASSISTED TO BEDSIDE COMMODE, VOIDED AND HAD BM.
--- NOTE | 2021-06-06 06:43 | NUR ---
MS/RN CLOSING NOTES PT ASLEEP, EASILY AROUSABLE WHEN NAME IS CALLED. RESPIRATIONS EVEN/UNLABORED. ON O2 @3LPM VIA N/C. NO SOB NOTED. R-CHEST TUBE IN PLACE, 50CC OUTPUT. IV SITE: R-FA #20G INTACT/PATENT/FLUSHES WELL. PT IN NO ACUTE DISTRESS. SAFETY MEASURES MAINTAINED. ALL NEEDS ATTENDED TO.
--- NOTE | 2021-06-06 07:18 | NUR ---
RN OPENING NOTE- PT AWAKE IN BED, A/OX4, STATED PAIN AT PRESENT/GENERALIZED. ON O2 @3LPM VIA N/C. RESPIRATIONS EVEN/UNLABORED. PT DENIES SOB. R-CHEST TUBE IN PLACE AND DRAINING WELL. PNEUMOVAC W 50 CC OUTPUT PREVIOUS SHIFT. IV SITE: R-FA #20G INTACT. SAFETY MEASURES IN PLACE, BED IN LOWEST LOCKED POSITION, S/R UPX2, CALL LIGHT WITHIN REACH. WILL CONT TO MONITOR.
[2021-06-06] MEDS: PANTOPRAZOLE 40 MG TABLET.DR PO SCH (07:58)
[2021-06-06 08:00] VITALS: BP 92/51
[2021-06-06] MEDS: VENLAFAXINE XR 37.5 MG CAP.SR.24H PO SCH (08:36)
[2021-06-06] MEDS: ENSURE ENLIVE 237 ML LIQUID (VANILLA) PO SCH ×3 (08:36→17:27)
[2021-06-06] MEDS: FERROUS SULFATE (325 MG) 325 MG/TAB TABLET PO SCH ×2 (08:36→17:27)
[2021-06-06] MEDS: ASCORBIC ACID 500 MG TABLET PO SCH (08:36)
[2021-06-06 11:41] LABS: BASOPHILS # (AUTO) 0.1 K/uL (0.0-0.2); BASOPHILS % (AUTO) 0.7 % (0.0-2.0); EOSINOPHILS % (AUTO) 2.1 % (0.0-6.0); HEMATOCRIT 34 % (33-45); HEMOGLOBIN 10.2 g/dL (11.5-14.8); LYMPHOCYTES % (AUTO) 8.9 % (20.0-44.0); MEAN CORPUSCULAR HGB CONC 30 g/dl (31.0-36.0); MEAN CORPUSCULAR VOLUME 80 fL (82-100); MONOCYTES % (AUTO) 8.6 % (2.0-12.0); NEUTROPHILS # (AUTO) 8.9 K/uL (1.8-8.9); NEUTROPHILS % (AUTO) 79.7 % (43.0-81.0); PLATELET COUNT (AUTO) 384 K/uL (150-450); RED BLOOD CELL COUNT(AUTO) 4.24 MIL/uL (4.0-5.2); WHITE BLOOD COUNT (AUTO) 11.1 K/uL (4.3-11.0)
[2021-06-06 12:06] LABS: ALBUMIN 2.9 g/dL (3.4-5.0); BILIRUBIN,TOTAL 0.2 mg/dL (0.2-1.0); CALCIUM, SERUM 10.8 mg/dL (8.5-10.1); CREATININE 0.7 mg/dL (0.6-1.3); MAGNESIUM 2.5 mg/dL (1.8-2.4); PHOSPHORUS 3.1 mg/dL (2.5-4.9); POTASSIUM 5.8 mmol/L (3.5-5.1); TOTAL PROTEIN, SERUM 7.2 g/dL (6.4-8.2)
[2021-06-06 16:00] VITALS: BP 102/55
--- NOTE | 2021-06-06 16:40 | NUR ---
RN NOTE- PTS K IS 5.8. DR THAO NOTIFIED EARLIER THIS AFTERNOON. CALLED DR SANTILLAN. ORDERED KAYEXYLATE 30 G X ONE DOSE. COMPLIED
[2021-06-06] MEDS ORDERED: SODIUM POLYSTYRENE SULFONATE 15 G/60 ML BOTTLE PO ONE (17:00)
--- NOTE | 2021-06-06 18:32 | NUR ---
RN CLOSING NOTE- PT AWAKE IN BED, A/OX4, STATED PAIN AT PRESENT/GENERALIZED. MORPHINE 2 MG IVP RELIEVES PAIN. ON O2 @3LPM VIA N/C. RESPIRATIONS EVEN/UNLABORED. PT DENIES SOB. R-CHEST TUBE IN PLACE AND DRAINING WELL. PNEUMOVAC W 1540 TOTAL DRAINAGE THUS FAR. IV SITE: R-FA #20G INTACT. K 5.8. 30 G KAYEXALATE ADMINISTERED. SAFETY MEASURES IN PLACE, BED IN LOWEST LOCKED POSITION, S/R UPX2, CALL LIGHT WITHIN REACH. WILL CONT TO MONITOR.
--- NOTE | 2021-06-06 19:30 | NUR ---
BROTH SETTER OPENING NOTES RECEIVED PATIENT AWAKE LAYING IN BED. A/O X4. PATIENT WITH REGULAR AND UNLABORED BREATHING ON NASAL CANULA 2L, TOLERATED WELL. NO SIGNS AND SYMPTOMS OF DISTRESS NOTED. NO COMPLAIN OF PAIN OR DISCOMFORT AT THIS TIME. PATIENT IS ON TELE SR @HR 71. CHEST TUBE ON RIGHT SIDE. CLEAN DRY AND INTACT. IV ACCESS RFA G #20 SL. ACCESS PATENT AND INTACT. SAFETY PRECAUTIONS ENFORCED WITH BED LOCKED AND AT LOWEST POSITION. SIDERAILS UP X2. CALL LIGHT WITHIN REACH AT ALL TIMES WILL CONTINUE TO MONITOR PATIENT.
[2021-06-06 20:00] VITALS: BP 107/48
--- NOTE | 2021-06-06 22:06 | NUR ---
MS RN NOTES PATIENT COMPLAINED OF PAIN. ADMINISTERED MORPHINE 2MG/ML Q4H PRN ORDERED BY HOSPITALIST.
[2021-06-07] MEDS: MORPHINE SULFATE INJ 2 MG/ML DISP.SYRIN IV PRN ×5 (02:19→20:37)
[2021-06-07] MEDS: IPRATROPIUM NEB FS 0.5 MG/2.5 ML AMPUL.NEB NEB SCH ×6 (03:28→23:30)
[2021-06-07] MEDS: ALBUTEROL HALF STRENGTH 1.25 MG/3 ML VIAL.NEB NEB SCH ×6 (03:28→23:30)
--- NOTE | 2021-06-07 06:57 | NUR ---
DIRECTOR OF PROVIDER RELATIONS CLOSING NOTES PATIENT STILL AWAKE LAYING IN BED. A/O X4. PATIENT WITH REGULAR AND UNLABORED BREATHING ON NASAL CANULA 2L, TOLERATED WELL. NO SIGNS AND SYMPTOMS OF DISTRESS NOTED. NO COMPLAIN OF PAIN OR DISCOMFORT AT THIS TIME. PATIENT IS ON TELE SR @HR 71. CHEST TUBE ON RIGHT SIDE. CLEAN DRY AND INTACT. OUTPUT DURING SHIFT WAS 10ML. IV ACCESS RFA G #20 SL. ACCESS PATENT AND INTACT. SAFETY PRECAUTIONS ENFORCED WITH BED LOCKED AND AT LOWEST POSITION. SIDERAILS UP X2. CALL LIGHT WITHIN REACH AT ALL TIMES WILL ENDORSE CONINUITY OF CARE TO DAY SHIFT NURSE.
[2021-06-07 07:19] LABS: BASOPHILS # (AUTO) 0.1 K/uL (0.0-0.2); BASOPHILS % (AUTO) 0.7 % (0.0-2.0); EOSINOPHILS % (AUTO) 3.7 % (0.0-6.0); HEMATOCRIT 33 % (33-45); HEMOGLOBIN 9.9 g/dL (11.5-14.8); LYMPHOCYTES # (AUTO) 0.8 K/uL (0.8-4.8); LYMPHOCYTES % (AUTO) 8.2 % (20.0-44.0); MEAN CORPUSCULAR HGB CONC 30 g/dl (31.0-36.0); MEAN CORPUSCULAR VOLUME 81 fL (82-100); MONOCYTES % (AUTO) 10.2 % (2.0-12.0); NEUTROPHILS # (AUTO) 7.8 K/uL (1.8-8.9); NEUTROPHILS % (AUTO) 77.2 % (43.0-81.0); PLATELET COUNT (AUTO) 292 K/uL (150-450); RED BLOOD CELL COUNT(AUTO) 4.12 MIL/uL (4.0-5.2); WHITE BLOOD COUNT (AUTO) 10.1 K/uL (4.3-11.0)
[2021-06-07 07:34] LABS: ALBUMIN 2.7 g/dL (3.4-5.0); BILIRUBIN,TOTAL 0.2 mg/dL (0.2-1.0); CALCIUM, SERUM 10.2 mg/dL (8.5-10.1); CREATININE 0.7 mg/dL (0.6-1.3); MAGNESIUM 2.3 mg/dL (1.8-2.4); PHOSPHORUS 3.1 mg/dL (2.5-4.9); POTASSIUM 4.9 mmol/L (3.5-5.1); TOTAL PROTEIN, SERUM 6.8 g/dL (6.4-8.2)
--- NOTE | 2021-06-07 07:45 | NUR ---
RN OPENING NOTES PATIENT IS IN BED RESTING, AWAKE. A/O X4. NO S/S OF PAIN NOTES AT THIS TIME. ON 3L OXYGEN VIA NC, NO DISTRESS OR SHORTNESS OF BREATH NOTED. IV RFA #20G INTACT AND PATENT. FALL AND SAFETY MEASURES IN PLACE, BED ALARM ON, BED IN LOW AND LOCK POSITION, CALL LIGHT AND TABLE WITHIN EASY REACH, SIDE RAILS UP X2. WILL CONTINUE TO MONITOR.
[2021-06-07 08:33] VITALS: BP 96/50
[2021-06-07] MEDS: PANTOPRAZOLE 40 MG TABLET.DR PO SCH (09:00)
[2021-06-07] MEDS: VENLAFAXINE XR 37.5 MG CAP.SR.24H PO SCH (09:00)
[2021-06-07] MEDS: ASCORBIC ACID 500 MG TABLET PO SCH (09:00)
[2021-06-07] MEDS: FERROUS SULFATE (325 MG) 325 MG/TAB TABLET PO SCH ×2 (09:00→16:31)
[2021-06-07] MEDS: ENSURE ENLIVE 237 ML LIQUID (VANILLA) PO SCH ×3 (09:02→17:00)
[2021-06-07 16:00] VITALS: BP 102/56
--- NOTE | 2021-06-07 19:57 | NUR ---
RN CLOSING NOTES PATIENT IS IN BED RESTING, AWAKE. A/O X4. NO S/S OF PAIN NOTES AT THIS TIME. ON 3L OXYGEN VIA NC, NO DISTRESS OR SHORTNESS OF BREATH NOTED. IV RFA #20G INTACT AND PATENT. FALL AND SAFETY MEASURES IN PLACE, BED ALARM ON, BED IN LOW AND LOCK POSITION, CALL LIGHT AND TABLE WITHIN EASY REACH, SIDE RAILS UP X2. WILL ENDORSE TO KENNEL SUPERVISOR.
[2021-06-07 20:00] VITALS: BP 102/52
--- NOTE | 2021-06-07 20:01 | NUR ---
RT NOTE PATIENT REFUSING HHN TX AT THIS TIME. NO RESPIRATORY DISTRESS NOTED. WILL CONTINUE TO MONITOR PATIENT.
[2021-06-07] MEDS: MAG HYDROX/AL HYDROX/SIMETH 30 ML UDC PO PRN (20:37)
--- NOTE | 2021-06-08 00:09 | NUR ---
RT NOTE PATIENT REFUSING TX AT THIS TIME. PATIENT REQUESTING TO NOT BE WOKEN UP FOR HHN TX. NO RESPIRATORY DISTRESS NOTED. WILL CONTINUE TO MONITOR.
[2021-06-08] MEDS: MORPHINE SULFATE INJ 2 MG/ML DISP.SYRIN IV PRN ×3 (01:34→11:23)
[2021-06-08] MEDS: ALBUTEROL HALF STRENGTH 1.25 MG/3 ML VIAL.NEB NEB SCH ×4 (03:30→15:30)
[2021-06-08] MEDS: IPRATROPIUM NEB FS 0.5 MG/2.5 ML AMPUL.NEB NEB SCH ×4 (03:30→15:30)
--- NOTE | 2021-06-08 07:00 | NUR ---
RN Note Received patient AO x 4, able to responds all stimuli. Patient does no c/o pain or discomfort at this time. Respiratory even and unlabored with oxygen at 3L. Chest tube on right side and serosanguineous characteristic of the fluid. Skin is warm to touch, keep clean/dry. Call light within reach, keep lower bed position and elevated HOB, will continue to monitor.
[2021-06-08 08:00] VITALS: BP 106/59
[2021-06-08] MEDS: ASCORBIC ACID 500 MG TABLET PO SCH (09:00)
[2021-06-08] MEDS: ENSURE ENLIVE 237 ML LIQUID (VANILLA) PO SCH ×3 (09:00→17:00)
[2021-06-08] MEDS: VENLAFAXINE XR 37.5 MG CAP.SR.24H PO SCH (09:41)
[2021-06-08] MEDS: FERROUS SULFATE (325 MG) 325 MG/TAB TABLET PO SCH ×2 (09:41→18:32)
[2021-06-08] MEDS: PANTOPRAZOLE 40 MG TABLET.DR PO SCH (09:42)
[2021-06-08 12:20] VITALS: BP 112/62
--- NOTE | 2021-06-08 12:20 | NUR ---
Patient removed chest tube(right side) by Dr. Barahona, and clarified patient discharge to [place]. No chest xray order at this time. Patient stable in condition. No active bleeding observed. Will continue to monitor. Vital sign recorded.
[2021-06-08 14:00] VITALS: BP 99/62
--- NOTE | 2021-06-08 15:45 | NUR ---
Patient d/c to [facility]. Given report Josefina YEH. Patient continue to in stable condition. No active bleeding on right chest. Vital taken and documented.
[2021-06-08 16:00] VITALS: BP 100/54
[2021-06-08 18:00] VITALS: BP 104/52
--- NOTE | 2021-06-08 18:40 | NUR ---
2EMTs picked up patient and given report. No active bleeding at chest tube site on right chest. In stable condition.
== END 2021-06-08 18:47 | DRG 199 ==
LOC: ER 22:15 → EDBD 05-17 03:32 → TRANSITION 05-17 03:32 → TELE1 05-17 05:37 → TELE 05-27 06:41 → MED 05-31 11:23
PROVIDERS: ATTEND Internal Medicine
PROC: 0W993ZZ Drainage of Right Pleural Cavity, Percutaneous Approach (ICD-10-PCS; principal; 2021-05-18)
PROC: 0W9930Z Drainage of Right Pleural Cavity with Drainage Device, Percutaneous Approach (ICD-10-PCS; 2021-05-18)
PROC: 0W9930Z Drainage of Right Pleural Cavity with Drainage Device, Percutaneous Approach (ICD-10-PCS; 2021-05-19)
DX: S27.1XXA Traumatic hemothorax, initial encounter (principal); J96.01 Acute respiratory failure with hypoxia; J90 Pleural effusion, not elsewhere classified; J98.11 Atelectasis; E44.0 Moderate protein-calorie malnutrition; Z68.1 Body mass index [BMI] 19.9 or less, adult; R64 Cachexia; D62 Acute posthemorrhagic anemia; W19.XXXA Unspecified fall, initial encounter; Y92.9 Unspecified place or not applicable; Z20.822 Contact with and (suspected) exposure to COVID-19; J44.9 Chronic obstructive pulmonary disease, unspecified; Z91.81 History of falling; R29.6 Repeated falls; F17.210 Nicotine dependence, cigarettes, uncomplicated; E21.3 Hyperparathyroidism, unspecified; D50.9 Iron deficiency anemia, unspecified; F32.9 Major depressive disorder, single episode, unspecified; I51.9 Heart disease, unspecified
CPT/HCPCS: 36415; 36600; 71045-TC; 71250-TC; 75989; 75989-TC; 80048-TC; 80053-TC; 80061-TC; 80076-TC; 82803-TC; 83540-TC; 83605-TC; 83735-TC; 83880; 83970; 84100-TC; 84484-TC; 85025-TC; 85610-TC; 85730-TC; 87040-TC; 87070-TC; 87075-TC; 87081-TC; 87086-TC; 87102-TC; 87116; 87206; 88108-TC; 88305-TC; 89051-TC; 90715; 94664; 94799-TC; 97112-TC; 97116-TC; 97530-TC; A4217; A6403; C9803; G0378; J1650; J2250; J2270; J2310; J2405; J2543; J2916; J3010; J7030; J7040; J7050; J7060; J7120; Q9967; U0003

== ENCOUNTER 2021-07-18 19:49 | Inpatient (IN) | payer MEDICARE, OTHER ==
[~2021-07-18] VITALS: Ht 152.4 cm; Wt 34.0 kg
--- NOTE | 2021-07-18 20:04 | NUR ---
[facility] FROM SNF TO ER BED 7. AAOX2. NOT IN DISTRESS. ON 15LPM NON REBREATHER, SATTING @ 95%. PT WAS SENT FOR LOW O2 SAT REPORTED AT 77% ON 3LPM WHICH IS BASELINE FOR PT. WAS AT THE [facility] FOR EVAL
[2021-07-18 20:41] LABS: BASOPHILS % (AUTO) 0.1 % (0.0-2.0); HEMATOCRIT 33 % (33-45); LYMPHOCYTES # (AUTO) 0.5 K/uL (0.8-4.8); LYMPHOCYTES % (AUTO) 3.8 % (20.0-44.0); MEAN CORPUSCULAR HGB CONC 30 g/dl (31.0-36.0); MEAN CORPUSCULAR VOLUME 81 fL (82-100); MONOCYTES # (AUTO) 0.7 K/uL (0.1-1.30); MONOCYTES % (AUTO) 5.4 % (2.0-12.0); NEUTROPHILS % (AUTO) 90.7 % (43.0-81.0); PLATELET COUNT (AUTO) 316 K/uL (150-450); RED BLOOD CELL COUNT(AUTO) 4.14 MIL/uL (4.0-5.2); WHITE BLOOD COUNT (AUTO) 12.1 K/uL (4.3-11.0)
--- NOTE | 2021-07-18 20:52 | NUR ---
EPIC PANEL PAGED
[2021-07-18 20:54] LABS: CALCIUM, SERUM 9.3 mg/dL (8.5-10.1); CREATININE 0.6 mg/dL (0.6-1.3)
[2021-07-18] MEDS ORDERED: FUROSEMIDE 40 MG/4 ML VIAL IV ONE (21:00)
[2021-07-18] MEDS ORDERED: ENOXAPARIN SODIUM 40 MG/0.4 ML DISP.SYRIN SQ ONE (21:00)
[2021-07-18] MEDS ORDERED: VANCOMYCIN 1 GM in IV D5W 250 ML IV ONE (21:00)
[2021-07-18] MEDS ORDERED: CEFEPIME 1 GM in IV D5W 50 ML IV ONE (21:00)
[2021-07-18 21:03] LABS: ALBUMIN 2.4 g/dL (3.4-5.0); BILIRUBIN,DIRECT 0.1 mg/dL (0.0-0.2); BILIRUBIN,TOTAL 0.3 mg/dL (0.2-1.0); TOTAL PROTEIN, SERUM 6.8 g/dL (6.4-8.2)
[2021-07-18] MEDS ORDERED: VANCOMYCIN 1 GM VIAL ONE (21:10)
[2021-07-18] MEDS ORDERED: CEFEPIME 1 GM VIAL ONE (21:10)
[2021-07-18 21:18] LABS: BAND % (MANUAL) 6 % (0.0-5.0); LYMPHOCYTES % (MANUAL) 7 % (16-48); MONOCYTES % (MANUAL) 6 % (0-11.0); NEUTROPHILS % (MANUAL) 81 (42-76)
--- NOTE | 2021-07-18 21:23 | NUR ---
CALL FROM LAB W./ POSITIVE COVID RESULT
--- NOTE | 2021-07-18 22:25 | NUR ---
L AC IV NOTED INFILTRATED. STARTED ANOTHER IV ON RFA 22G.
[2021-07-18] MEDS ORDERED: MAGNESIUM HYDROXIDE 30 ML UDC PO PRN (23:30)
[2021-07-18] MEDS ORDERED: ONDANSETRON HCL/PF 4 MG/2 ML VIAL IVP PRN (23:30)
[2021-07-18] MEDS ORDERED: Z GUARD REMEDY 4 OZ OINT TP PRN (23:30)
[2021-07-18] MEDS: ENOXAPARIN SODIUM 40 MG/0.4 ML DISP.SYRIN SQ SCH (23:30)
[2021-07-18] MEDS ORDERED: ZOLPIDEM TARTRATE 5 MG TABLET PO PRN (23:30)
[2021-07-18] MEDS ORDERED: ACETAMINOPHEN 325 MG TABLET PO PRN (23:30)
[2021-07-19] VITALS: BP 110/64
--- NOTE | 2021-07-19 00:06 | NUR ---
[facility]SA SWAB COLLECTED AND SENT TO LAB. PATIENT'S BELONGINGS LIST DONE.
--- NOTE | 2021-07-19 00:12 | NUR ---
REPORT GIVEN TO RAO ROLDAN FOR DEISI
--- NOTE | 2021-07-19 00:30 | NUR ---
PRENATAL TEACHER NOTES: PATIENT WAS ADMITTED FROM ER VIA STRETCHER , PLACED IN ROOM 109-1. PATIENT ALERT, AWAKE, ORIENTED X3, VERBALLY RESPONSIVE. ON NON-REBREATHER, 15LPM AND PT TOLERATED WELL. BREATHING EVEN AND UNLABORED. IV ACCESS ON RFA#22G INTACT AND PATENT. NO S/S OF INFILTRATION. BODY ASSESSMENT DONE. NOTED OPEN WOUND O RT ELBOW, SKIN DISCOLORATIONS ON RT FOREARM, RT KNEE AND LEFT HAND. SKIN REDNESS ON SACRUM AREA EXTENDING TO ANAL AREA. NOTED HERNIA ON ABDOMEN AREA. HARD TO TOUCH. SLIGHT C/O PAIN WHILE BEING TOUCHED. NO ACUTE DISTRESS. COOPERATIVE WITH CARE. ALL SAFETY MEASURE IN PLACE. SIDE RAILS X3. BED IN LOW POSITION AND LOCKED. PLACE CALL LIGHT WITH IN REACH. WILL CONTINUE TO MONITOR FOR ANY CHANGES.
--- NOTE | 2021-07-19 00:36 | NUR ---
pt transported to unit on gurney with emt and rn at bedside w/ acls protocol. nad noted during transport.
--- NOTE | 2021-07-19 01:18 | NUR ---
RN NOTES: LOVENOX 40 MG GIVEN AT ER. WILL CONTINUE TO MONITOR
--- NOTE | 2021-07-19 01:54 | NUR ---
RN NOTES: PT C/O MILD PAIN 3/10 PAIN SCALE AROUND ABDOMINAL AREA. TYLENOL 325 MG 2 TABS GIVEN PER PRN ORDER. PT TOLERATED WELL. WILL CONTINUE TO MONITOR
[2021-07-19 04:00] VITALS: BP 102/55
[2021-07-19 06:53] LABS: ALBUMIN 2.3 g/dL (3.4-5.0); BILIRUBIN,DIRECT 0.1 mg/dL (0.0-0.2); BILIRUBIN,TOTAL 0.3 mg/dL (0.2-1.0); CALCIUM, SERUM 9.1 mg/dL (8.5-10.1); CREATININE 0.6 mg/dL (0.6-1.3); MAGNESIUM 2.2 mg/dL (1.8-2.4); PHOSPHORUS 3.3 mg/dL (2.5-4.9); TOTAL PROTEIN, SERUM 6.8 g/dL (6.4-8.2)
[2021-07-19 07:10] LABS: THYROID STIMULATING HORMONE 1.037 uIU/mL (0.358-3.74)
[2021-07-19 07:21] LABS: BASOPHILS % (AUTO) 0.1 % (0.0-2.0); HEMATOCRIT 33 % (33-45); LYMPHOCYTES # (AUTO) 0.6 K/uL (0.8-4.8); LYMPHOCYTES % (AUTO) 4.6 % (20.0-44.0); MEAN CORPUSCULAR HGB CONC 30 g/dl (31.0-36.0); MEAN CORPUSCULAR VOLUME 81 fL (82-100); MONOCYTES # (AUTO) 0.7 K/uL (0.1-1.30); MONOCYTES % (AUTO) 5.7 % (2.0-12.0); NEUTROPHILS # (AUTO) 11.2 K/uL (1.8-8.9); NEUTROPHILS % (AUTO) 89.6 % (43.0-81.0); PLATELET COUNT (AUTO) 310 K/uL (150-450); WHITE BLOOD COUNT (AUTO) 12.5 K/uL (4.3-11.0)
[2021-07-19] MEDS ORDERED: CALC1TAB30 PO (07:38)
[2021-07-19] MEDS ORDERED: ENOX30DI5 SQ (07:38)
[2021-07-19] MEDS ORDERED: DOCU-141 PO (07:38)
[2021-07-19] MEDS ORDERED: DULO30CA52 PO (07:38)
[2021-07-19] MEDS ORDERED: CRAN425C6 PO (07:38)
[2021-07-19] MEDS ORDERED: ASCO-352 PO (07:38)
[2021-07-19] MEDS ORDERED: MORP15TA PO (07:38)
[2021-07-19] MEDS ORDERED: AMIN30LI2 PO (07:38)
[2021-07-19] MEDS ORDERED: CRAN3875 PO (07:38)
[2021-07-19] MEDS ORDERED: ONDA4TAB5 PO (07:38)
[2021-07-19] MEDS ORDERED: ACET-2605 PO ×2 (07:38)
[2021-07-19] MEDS ORDERED: PANT40TA2 PO (07:38)
[2021-07-19 08:00] VITALS: BP 108/53
[2021-07-19] MEDS: FUROSEMIDE 40 MG/4 ML VIAL IV SCH (08:56)
[2021-07-19] MEDS: PANTOPRAZOLE 40 MG TABLET.DR PO SCH (08:56)
[2021-07-19] MEDS: ASPIRIN EC 81 MG TABLET.DR PO SCH (08:56)
[2021-07-19] MEDS: MAG HYDROX/AL HYDROX/SIMETH 30 ML UDC PO PRN (09:23)
[2021-07-19] MEDS: MORPHINE SULFATE INJ 2 MG/ML DISP.SYRIN IV PRN ×3 (09:56→20:29)
--- NOTE | 2021-07-19 10:30 | NUR ---
tele custodial worker: pulmo consult seen by dr. reynoso at this time.
[2021-07-19] MEDS: VANCOMYCIN 500 MG in IV D5W 100ml IV SCH ×2 (10:48→23:00)
[2021-07-19] MEDS: ENSURE ENLIVE 237 ML LIQUID (VANILLA) PO SCH ×2 (11:00→16:15)
--- NOTE | 2021-07-19 11:30 | NUR ---
tele human resources consultant: notes seen by dr. robins at this time.
[2021-07-19 12:00] VITALS: BP 139/66
[2021-07-19] MEDS: HYDROCODONE/APAP 5/325MG TABLET PO PRN ×2 (12:27→12:30)
--- NOTE | 2021-07-19 15:24 | NUR ---
tele multi craft maintenance technician: id consult noted order from dr. dennis to give REMDESIVIR LOADING DOSE X1. order acknowledged. cn aware.
[2021-07-19] MEDS: DEXAMETHASONE SOD PHOSPHATE 10 MG/ML VIAL IV SCH (15:51)
[2021-07-19 16:00] VITALS: BP 110/64
[2021-07-19 17:37] LABS: C-REACTIVE PROTEIN 12.6 mg/dL (0.0-0.9)
[2021-07-19] MEDS ORDERED: REMDESIVIR (CHARGED) 200 MG, *LOADING DOSE 1 EA in IV NS 0.9% 210 ML IV ONE (18:00)
--- NOTE | 2021-07-19 18:06 | NUR ---
tele senior packaging engineer: notes remdesivir bolus 200mg ivpb started by rn at this time. will continue to monitor.
--- NOTE | 2021-07-19 18:25 | NUR ---
tele cleaner wall: notes noted iv infiltrated. cn made aware. iv line removed by rn and ice pack applied. re-inserted new iv to right upper arm, gauge#22. right arm elevated. will continue to monitor.
[2021-07-19 19:14] LABS: ABG BASE EXCESS 3.2 mmol/L; ABG PCO2 36.5 mmHg (35.0-45.0); ABG PH 7.482 (7.350-7.450); ABG PO2 72.2 mmHg (75.0-100.0); COHb 0.3 % (0.5-1.5); MetHb 0.1 % (0.0-1.5); O2Hb 94.6 % (94.0-97.0); SITE, ABG Right Radial; VENT MODE, BG 15 LNRB
--- NOTE | 2021-07-19 19:15 | NUR ---
tele asset protection representative: notes bedside report given to jesús (haroon) for continuity of care.
--- NOTE | 2021-07-19 19:35 | NUR ---
RN NOTE PT RECEIVED IN BED. PT IS ON NRB AT 15L TOLERATING WELL. PT IS ALERT AND ORIENTED X2-3. ON REGULAR DIET. IV ACCESS NOTED ON RIGHT UPPER ARM #20. LINE FLUSHED, PATENT, AND INTACT WITH NO SIGNS OF INFILTRATION. ALL SAFETY MEASURES IMPLEMENTED. WILL CONTINUE TO MONITOR AND ASSESS FOR ANY CHANGES DURING SHIFT.
[2021-07-19 20:00] VITALS: BP 127/68
[2021-07-19] MEDS: CEFEPIME 2 GM in IV D5W 100 ML IV SCH (20:28)
[2021-07-19] MEDS: ENOXAPARIN SODIUM 40 MG/0.4 ML DISP.SYRIN SQ SCH (20:29)
[2021-07-20] MEDS: MORPHINE SULFATE INJ 2 MG/ML DISP.SYRIN IV PRN ×3 (01:14→16:50)
[2021-07-20 04:00] VITALS: BP 118/64
--- NOTE | 2021-07-20 06:58 | NUR ---
RN NOTE NO CHANGES IN PT CONDITION DURING SHIFT. PT IS ON NRB AT 15L TOLERATING WELL. PT IS ALERT AND ORIENTED X2-3. ON REGULAR DIET. IV ACCESS NOTED ON RIGHT UPPER ARM #20. LINE FLUSHED, PATENT, AND INTACT WITH NO SIGNS OF INFILTRATION. ALL DUE MEDS GIVEN ORDERED. PT KEPT CLEAN AND COMFORTABLE. ALL SAFETY MEASURES IMPLEMENTED. WILL ENDORSE TO MORNING SHIFT RN FOR DEISI.
[2021-07-20 06:59] LABS: ALANINE AMINOTRANSFERASE < 6 U/L (12-78); ALBUMIN 2.2 g/dL (3.4-5.0); ALKALINE PHOSPHATASE 97 U/L (46-116); ASPARTATE AMINOTRANSFERASE 29 U/L (15-37); BILIRUBIN,DIRECT 0.1 mg/dL (0.0-0.2); BILIRUBIN,TOTAL 0.4 mg/dL (0.2-1.0); CALCIUM, SERUM 9.2 mg/dL (8.5-10.1); CARBON DIOXIDE 30 mmol/L (21-32); CHLORIDE 102 mmol/L (98-107); CREATININE 0.6 mg/dL (0.6-1.3); GLUCOSE 92 mg/dL (74-106); MAGNESIUM 2.5 mg/dL (1.8-2.4); PHOSPHORUS 3.2 mg/dL (2.5-4.9); POTASSIUM 2.9 mmol/L (3.5-5.1); SODIUM SERUM 141 mmol/L (136-145); TOTAL PROTEIN, SERUM 6.7 g/dL (6.4-8.2); UREA NITROGEN, BLOOD 25 mg/dL (7-18)
[2021-07-20 07:07] LABS: BASOPHILS % (AUTO) 0.3 % (0.0-2.0); HEMATOCRIT 34 % (33-45); HEMOGLOBIN 10.3 g/dL (11.5-14.8); LYMPHOCYTES # (AUTO) 0.7 K/uL (0.8-4.8); LYMPHOCYTES % (AUTO) 5.1 % (20.0-44.0); MEAN CORPUSCULAR HGB CONC 31 g/dl (31.0-36.0); MEAN CORPUSCULAR VOLUME 80 fL (82-100); MONOCYTES # (AUTO) 0.6 K/uL (0.1-1.30); MONOCYTES % (AUTO) 4.5 % (2.0-12.0); NEUTROPHILS # (AUTO) 11.9 K/uL (1.8-8.9); NEUTROPHILS % (AUTO) 90.1 % (43.0-81.0); PLATELET COUNT (AUTO) 337 K/uL (150-450); RED BLOOD CELL COUNT(AUTO) 4.21 MIL/uL (4.0-5.2); WHITE BLOOD COUNT (AUTO) 13.2 K/uL (4.3-11.0)
--- NOTE | 2021-07-20 07:33 | NUR ---
RN OPENING NOTES RECEIVED PT AWAKE IN BED RESTING. PT IS A/O X 2-3. ON NRB AT 15L SATING AT 98%. IV ACCESS ON R UA AND R FA #20. NO SIGNS OF DISTRESS OR SOB. NO C/O OF PAIN. ALL SAFETY MEASURES IN PLACE, BED IN LOWEST LOCKED POSITION, SIDE RAILS UPS X 3, CALL LIGHT WITHIN REACH. WILL CONTINUE TO MONITOR THROUGHOUT SHIFT.
[2021-07-20] MEDS: PANTOPRAZOLE 40 MG TABLET.DR PO SCH (07:44)
[2021-07-20] MEDS: ENSURE ENLIVE 237 ML LIQUID (VANILLA) PO SCH ×2 (07:44→16:23)
[2021-07-20 08:00] VITALS: BP 109/48
[2021-07-20] MEDS: FUROSEMIDE 40 MG/4 ML VIAL IV SCH (08:44)
[2021-07-20] MEDS: DEXAMETHASONE SOD PHOSPHATE 10 MG/ML VIAL IV SCH (08:44)
[2021-07-20] MEDS: ASPIRIN EC 81 MG TABLET.DR PO SCH (08:44)
[2021-07-20] MEDS: MAG HYDROX/AL HYDROX/SIMETH 30 ML UDC PO PRN (09:50)
[2021-07-20] MEDS: VANCOMYCIN 500 MG in IV D5W 100ml IV SCH (11:29)
[2021-07-20 12:00] VITALS: BP 151/61
[2021-07-20] MEDS: POTASSIUM CHLORIDE 20 MEQ TAB.PRT.SR PO SCH ×3 (13:31→15:55)
[2021-07-20] MEDS: HYDROCODONE/APAP 5/325MG TABLET PO PRN ×2 (14:05→21:03)
[2021-07-20 16:00] VITALS: BP 104/57
--- NOTE | 2021-07-20 16:20 | NUR ---
RN NOTES CASE MANAGEMENT NOTIFIED ABOUT PT AND FAMILY REQUEST FOR HOSPICE EVAL. ORDER PUT IN.
[2021-07-20] MEDS ORDERED: REMDESIVIR (CHARGED) 100 MG in IV NS 0.9% 100 ML IV SCH (18:00)
--- NOTE | 2021-07-20 19:21 | NUR ---
RN CLOSING NOTES PT RESTING IN BED, A/O X2-3. IV ACCESS ON R UA 20G, R FA 20G, FLUSHING WELL AND PATENT. NO SIGNS OF SOB OR C/O OF PAIN. NO DISTRESS NOTED. ALL SAFETY MEASURES IN PLACE. BED IN LOWEST LOCKED POSITION, SIDE RAILS UP X3, CALL LIGHT WITHIN REACH. WILL ENDORSE TO CLINICAL DERMATOLOGIST NURSE FOR DEISI.
--- NOTE | 2021-07-20 19:50 | NUR ---
RN OPENING NOTES RECEIVED PT AWAKE IN BED RESTING. PT IS A/O X 2-3. ON NRB AT 15L SATING AT 98%. IV ACCESS ON R UA AND R FA #20. PATIENT ON TELE MONITOR WITH HR OF SR 68. NO SIGNS OF DISTRESS OR SOB. NO C/O OF PAIN. ALL ISOLATION PRECAUTIONS TAKEN, ALONG WITH ENVIRONMENTAL SAFETY MEASURES.ALL SAFETY MEASURES IN PLACE, BED IN LOWEST LOCKED POSITION, SIDE RAILS UPS X 3, CALL LIGHT WITHIN REACH. WILL CONTINUE TO MONITOR THROUGHOUT SHIFT.
[2021-07-20 20:00] VITALS: BP 90/64
--- NOTE | 2021-07-20 20:06 | NUR ---
RN ELLIOT QUINTANILLA FROM LAB CALLED TO INFORM THAT THE PATIENTS SWAB FOR COVID (PCR) CAME BACK POSITIVE.
[2021-07-20] MEDS: CEFEPIME 2 GM in IV D5W 100 ML IV SCH (20:13)
[2021-07-20] MEDS: ENOXAPARIN SODIUM 40 MG/0.4 ML DISP.SYRIN SQ SCH (20:14)
[2021-07-21] VITALS: BP 126/62
--- NOTE | 2021-07-21 00:30 | NUR ---
RN NOTE RT AT BEDSIDE, PATIENT 02 SAT AROUND 92-96%, AT THIS TIME NO FURTHER ACTIONS TAKEN. PATIENT WISHES TO BE DNR AT THIS POINT.
--- NOTE | 2021-07-21 01:30 | NUR ---
RN NOTE PATIENT EXPRESSED " PUT ME ON THE FLOOR I WANT TO PEACEFULLY, I HAVE A SOUL." Addendum: 07/21/21 at 0542 by Katie Bradshaw RN PROVIDED PATIENT WITH PSYCHOLOGICAL COMFORT, SIDE RAILS UP, BED LOW POSITION, PATIENT CONTINUES TO WANT TO BE DNR.
--- NOTE | 2021-07-21 02:05 | NUR ---
RN NOTE PATIENT IN BED RESTING, CONTINUES TO TAKE OFF NON REBREATHER OXYGEN. NEEDS CONSTANT ORIENTATION TO LEAVE MASK ON. DIRECTED THE PATIENT TO PUT THE MASK ON, ALL HER NEEDS ARE MET AT THIS TIME.
--- NOTE | 2021-07-21 03:00 | NUR ---
RN NOTE PATIENT FOUND ON THE FLOOR, RESPONSIVE, ALERT X2 , HOLDING NON RE BREATHER MASK IN HER HAND. CALLED FOR HELP, ASSESSED PATIENT FOR NERUO AND PHYSICAL INJURIES. NOTED PATIENT WITH SKIN TEAR ON RIGHT ARM. PUT THE PATIENT BACK IN BED WITH THE HELP OF NURSING STAFF. PUT THE NON REBREATHER MASK BACK ON THE PATIENT, SATURATION WAS FLUCTUATING CONSTANTLY FROM 80 - 94%, UNABLE TO GET A ACCURATE READING. CALLED RT IMMEDIATELY. RT SUGGESTED ORDERING STAT ABGS. WHILE IN ROOM ANASTASIA WAS PAGED, HOWEVER UNABLE TO REACH AT THIS TIME. CHARGE NURSE AWARE. PAGED ANASTASIA AGAIN AT 0403. RELAYED ABG RESULTS TO DR. OCONNOR, PO2 44.4. HIGH FLOW OXYGEN ORDERED AND BILATERAL SOFT RESTRAINTS FOR PATIENT NOT TO REMOVE OXYGEN. ORDERS NOTED AND CARRIED OUT.
[2021-07-21 04:00] VITALS: BP 111/51
--- NOTE | 2021-07-21 04:20 | NUR ---
RN NOTE DR. OCONNOR CALLED AND ORDERED ABGS, RESTRAINTS, AND HIGH FLOW OXYGEN FOR PATIENT. WILL FOLLOW THROUGH WITH ORDERS.
--- NOTE | 2021-07-21 04:25 | NUR ---
RN NOTE PATIENT ON HIGH FLOW OXYGEN 40L ,100% FLOW + 15L NON RE BREATHER. SATURATING 92-94
--- NOTE | 2021-07-21 04:45 | NUR ---
RN NOTE PATIENT TRYING TO REMOVE RESTRAINTS, REORIENTED PATIENT. BED LOCK, LOW POSITION, ALARM ON.
[2021-07-21 06:50] LABS: BASOPHILS % (AUTO) 0.2 % (0.0-2.0); HEMATOCRIT 32 % (33-45); HEMOGLOBIN 9.7 g/dL (11.5-14.8); LYMPHOCYTES # (AUTO) 0.5 K/uL (0.8-4.8); LYMPHOCYTES % (AUTO) 2.7 % (20.0-44.0); MEAN CORPUSCULAR HGB CONC 31 g/dl (31.0-36.0); MEAN CORPUSCULAR VOLUME 79 fL (82-100); MONOCYTES # (AUTO) 0.7 K/uL (0.1-1.30); MONOCYTES % (AUTO) 3.9 % (2.0-12.0); NEUTROPHILS # (AUTO) 16.9 K/uL (1.8-8.9); NEUTROPHILS % (AUTO) 93.2 % (43.0-81.0); PLATELET COUNT (AUTO) 361 K/uL (150-450); RED BLOOD CELL COUNT(AUTO) 4.01 MIL/uL (4.0-5.2); WHITE BLOOD COUNT (AUTO) 18.2 K/uL (4.3-11.0)
--- NOTE | 2021-07-21 07:00 | NUR ---
RN CLOSING NOTE PATIENT REMAINS ON HIGH FLOW OXYGEN 40L FIO2 100% + 15l NON REBREATHER MASK SATURATING AT 94%. PATIENT ON TELE MONITOR SR. PATIENT AWAKE AT THIS TIME, AND IS TRYING TO REMOVE HER MASK. SHE CONTINUES TO HAVE BILATERAL SOFT RESTRAINTS ON. ASSESSED THE RESTRAINTS ACCORDINGLY.
[2021-07-21] MEDS: PANTOPRAZOLE 40 MG TABLET.DR PO SCH (07:21)
[2021-07-21] MEDS: ENSURE ENLIVE 237 ML LIQUID (VANILLA) PO SCH (07:21)
--- NOTE | 2021-07-21 07:26 | NUR ---
RN CLOSING NOTES PT RESTING IN BED, A/O X2-3. IV ACCESS ON R UA 20G, R FA 20G, FLUSHING WELL AND PATENT. NO SIGNS OF SOB OR C/O OF PAIN. NO DISTRESS NOTED. PT ON NRB 15L AND HIGH FLOW OXYGEN. ALL SAFETY MEASURES IN PLACE. BED IN LOWEST LOCKED POSITION, SIDE RAILS UP X3, CALL LIGHT WITHIN REACH. WILL ENDORSE TO WEB ADMINISTRATOR NURSE FOR DEISI.
--- NOTE | 2021-07-21 07:27 | NUR ---
RN OPENING NOTES RECEIVED PT AWAKE IN BED RESTING. PT IS A/O X 2-3. ON NRB AT 15L AND HIGH FLOW OXYGEN SATING AT 95%. IV ACCESS ON R UA AND R FA #20. NO SIGNS OF DISTRESS OR SOB. NO C/O OF PAIN. ALL SAFETY MEASURES IN PLACE, BED IN LOWEST LOCKED POSITION, SIDE RAILS UPS X 3, CALL LIGHT WITHIN REACH. WILL CONTINUE TO MONITOR THROUGHOUT SHIFT.
[2021-07-21 07:45] LABS: ALBUMIN 2.3 g/dL (3.4-5.0); BILIRUBIN,DIRECT 0.1 mg/dL (0.0-0.2); BILIRUBIN,TOTAL 0.4 mg/dL (0.2-1.0); CALCIUM, SERUM 10.6 mg/dL (8.5-10.1); CREATININE 0.6 mg/dL (0.6-1.3); POTASSIUM 3.1 mmol/L (3.5-5.1); TOTAL PROTEIN, SERUM 6.6 g/dL (6.4-8.2)
[2021-07-21 08:00] VITALS: BP 120/63
[2021-07-21 08:07] LABS: IMMUNOGLOBULIN A, SERUM 517 mg/dL (64-422); IMMUNOGLOBULIN G, SERUM 1242 mg/dL (586-1602); IMMUNOGLOBULIN M, SERUM 99 mg/dL (26-217)
[2021-07-21] MEDS: ASPIRIN EC 81 MG TABLET.DR PO SCH (08:18)
[2021-07-21] MEDS: DEXAMETHASONE SOD PHOSPHATE 10 MG/ML VIAL IV SCH (08:19)
[2021-07-21] MEDS: FUROSEMIDE 40 MG/4 ML VIAL IV SCH (08:19)
[2021-07-21] MEDS ORDERED: MORPHINE SULFATE INJ 2 MG/ML DISP.SYRIN IV PRN (10:00)
[2021-07-21] MEDS ORDERED: LORAZEPAM INJ 2 MG/ML VIAL IV PRN (10:00)
[2021-07-21] MEDS ORDERED: POTASSIUM CHLORIDE 20 MEQ TAB.PRT.SR PO SCH (11:00)
[2021-07-21 11:08] LABS: *SPE A/G RATIO 0.7 (0.7-1.7); *SPE ALPHA-1-GLOBULIN 0.4 g/dL (0.0-0.4); *SPE ALPHA-2-GLOBULIN 0.9 g/dL (0.4-1.0); *SPE BETA GLOBULIN 1.1 g/dL (0.7-1.3); *SPE M-SPIKE Not Observed g/dL (Not Observed)
== END 2021-07-21 11:19 | disposition hospice, inpatient (51) | DRG 871 ==
LOC: ER 19:50 → TRANSITION 23:07 → TELE1 23:30
PROVIDERS: ADMIT Student in an Organized Health Care Education/Training Program; ATTEND Internal Medicine
DX: A41.89 Other specified sepsis (principal); J12.82 Pneumonia due to coronavirus disease 2019; U07.1 COVID-19; J96.21 Acute and chronic respiratory failure with hypoxia; J15.9 Unspecified bacterial pneumonia; I21.A1 Myocardial infarction type 2; E44.0 Moderate protein-calorie malnutrition; J98.11 Atelectasis; J90 Pleural effusion, not elsewhere classified; J44.0 Chronic obstructive pulmonary disease with (acute) lower respiratory infection; T17.990A Other foreign object in respiratory tract, part unspecified in causing asphyxiation, initial encounter; D64.9 Anemia, unspecified; I10 Essential (primary) hypertension; F17.200 Nicotine dependence, unspecified, uncomplicated; E11.9 Type 2 diabetes mellitus without complications; F32.A Depression, unspecified; X58.XXXA Exposure to other specified factors, initial encounter; Y92.9 Unspecified place or not applicable; Z66 Do not resuscitate; K46.9 Unspecified abdominal hernia without obstruction or gangrene; E87.6 Hypokalemia; E83.52 Hypercalcemia
CPT/HCPCS: 36415; 36600; 71045-TC; 80048-TC; 80076-TC; 80202-TC; 82378; 82728-TC; 82784; 83540-TC; 83605-TC; 83735-TC; 83880; 83970; 84100-TC; 84155; 84165; 84443-TC; 84484-TC; 85025-TC; 85378-TC; 85610-TC; 85730-TC; 86140-TC; 86304; 86334; 87040-TC; 87081-TC; 93307-TC; A4216; C9803; G0378; J0692; J1100; J1650; J1940; J2270; J2405; J3370; J7030; J7050; J7060; U0003

== ENCOUNTER 2021-07-21 11:13 | Inpatient (IN) | payer OTHER ==
[~2021-07-21] VITALS: Ht 152.4 cm; Wt 33.1 kg
[~2021-07-21 11:13] MED LIST: ACET-2605 PO; AMIN30LI2 PO; ASCO-352 PO; CALC1TAB30 PO; CRAN3875 PO; CRAN425C6 PO; DOCU-141 PO; DULO30CA52 PO; ENOX30DI5 SQ; MORP15TA PO; ONDA4TAB5 PO; PANT40TA2 PO
--- NOTE | 2021-07-21 16:22 | NUR ---
SS CONSULT : SS consult requested regarding facetime with Frank jaffe. SW called [facility](Stephen) and Spoke with Chelsea jaffe [phone] who stated that she would be able to facetime with the pt. SW met with pt. bedside to facilitate video call. However, pt. refused and asked SW to leave. SW notified nursing who also attempted to encourage her but pt. refused. Also, Octavio Jaffe from [facility] [phone] stated he would be available tomorrow if pt. is agreeable to phone call. Noted.
[2021-07-21] MEDS: MORPHINE SULFATE INJ 4 MG/ML DISP.SYRIN IV PRN (16:39)
[2021-07-21] MEDS: LORAZEPAM INJ 2 MG/ML VIAL IV PRN (18:58)
--- NOTE | 2021-07-21 19:05 | NUR ---
RN CLOSING NOTES PT IS RESTING IN BED, A/O X 3-4, PT IS NOW ON HOSPICE CARE WITH COMFORT MEASURES ONLY. MORPHINE AND ATIVAN Q4H. IV ACCESS ON L FA 18G FLUSHING WELL AND PATENT. ALL SAFETY MEASURES IN PLACE, BED IN LOWEST LOCKED POSITION, SR UP X 3, CALL LIGHT WITHIN REACH. WILL ENDORSE TO CABLE WEAVER NURSE FOR DEISI.
--- NOTE | 2021-07-21 19:25 | NUR ---
RN OPENING NOTES RECEIVED CARE OF PATIENT WHILE PATIENT IN BED, ASLEEP, WAKES UP TO PAINFUL STIMULI. PATIENT ON COMFORT MEASURES ONLY. MORPHINE AND ATIVAN Q4H. IV ACCESS ON L FA 18G FLUSHING WELL AND PATENT. REPOSITIONED PATIENT FOR COMFORT. ALL APPROPRIATE ISOLATION PRECAUTIONS IMPLEMENTED. ALL SAFETY MEASURES IN PLACE, BED IN LOWEST LOCKED POSITION, SR UP X 3, CALL LIGHT WITHIN REACH. WILL CONTINUE TO PROVIDE COMFORT MEASURES AND MONITOR THE PATIENT.
[2021-07-22] MEDS: LORAZEPAM INJ 2 MG/ML VIAL IV PRN ×2 (02:16→06:49)
[2021-07-22] MEDS: MORPHINE SULFATE INJ 4 MG/ML DISP.SYRIN IV PRN ×4 (04:18→20:58)
--- NOTE | 2021-07-22 06:19 | NUR ---
RN CLOSING NOTES PATIENT REMAINS IN BED, SLEEPING BUT WAKES UP TO PAINFUL STIMULI. PATIENT WAS REPOSITIONED Q2H THROUGHOUT SHIFT FOR COMFORT, ATIVAN AND MORPHINE GIVEN PRN Q4H FOR PAIN AND COMFORT. ALL NEEDS ATTENDED TO. PATIENT ON NON REBREATHER MASK AT 15LPM, O2 SAT IS 92, NO SOB NOTED. ALL APPROPRIATE ISOLATION PRECAUTIONS IMPLEMENTED. ALL SAFETY MEASURES IN PLACE, BED IN LOWEST LOCKED POSITION, SR UP X 3, CALL LIGHT WITHIN REACH. WILL ENDORSE TO AM NURSE FOR CONTINUATION OF PLAN OF CARE.
--- NOTE | 2021-07-22 18:29 | NUR ---
RN CLOSING NOTES PT IS RESTING IN BED, A/0X1-2. PT IS ON NRB AT 15L SATING BETWEEN 95-100%. PT IS ON HOSPICE CARE. ONLY COMFORT MEASURES. ATIVAN AND MORPHINE Q4HRS. IV ACCESS ON RFA 20G. FLUSHING WELL AND PATENT. ALL SAFETY MEASURES IN PLACE, BED IN LOWEST LOCKED POSITION, SIDE RAILS UP X3, CALL LIGHT WITHIN REACH, WILL ENDORSE TO SUPERINTENDENT RADIO COMMUNICATIONS NURSE FOR DEISI.
--- NOTE | 2021-07-22 20:00 | NUR ---
RN NOTE PT RESTING IN BED, EASILY AROUSABLE TO STIMULI, VERBAL/CONFUSED. ON O2 @15LPM VIA NONREBREATHER MASK. IV SITE: R-FA INTACT/PATENT/FLUSHES WELL. COMFORT MEASURES PROVIDED. NO ACUTE DISRESS NOTED. SAFETY MEASURES IN PLACE, BED IN LOWEST LOCKED POSITION, S/R UPX2, CALL LIGHT WITHIN REACH. WILL CONT TO MONITOR.
[2021-07-23] MEDS: MORPHINE SULFATE INJ 4 MG/ML DISP.SYRIN IV PRN ×4 (01:36→18:05)
--- NOTE | 2021-07-23 06:50 | NUR ---
RN NOTE PT RESTING IN BED, AROUSABLE TO STIMULI, GOES RIGHT BACK TO SLEEP. CONT ON O2 @15LPM VIA NONREBREATHER MASK. KEPT PT COMFORTABLE AND PAIN WELL MANAGED WITH PRN MORPHINE. ALL NEEDS ATTENDED TO. SAFETY MEASURES MAINTAINED.
--- NOTE | 2021-07-23 19:30 | NUR ---
RN CLOSING NOTES. PATIENT RESTING IN BED. RESPONDS TO TACTILE STIMULI. PAIN MEDICATION OF MORPHINE GIVEN FOR COMFORT. KEPT PATIENT CLEAN AND DRY. SAFETY MEASURES IN PLACE. [facility]. ALL NEEDS ATTENDED. WILL ENDORSE FOR INCOMING SHIFT FOR DEISI.
[2021-07-23 20:00] VITALS: BP 95/58
--- NOTE | 2021-07-23 20:00 | NUR ---
RN OPENING NOTES RECEIVED PTS IN BED, ASLEEP, WAKES UP TO PAINFUL STIMULI. PATIENT ON HOSPICE DNR COMFORT MEASURES ONLY. IV ACCESS ON L FA 18G FLUSHING WELL AND PATENT. REPOSITIONED PATIENT FOR COMFORT. ALL APPROPRIATE ISOLATION PRECAUTIONS IMPLEMENTED. ALL SAFETY MEASURES IN PLACE, BED IN LOWEST LOCKED POSITION, SR UP X 3, CALL LIGHT WITHIN REACH. WILL CONTINUE TO PROVIDE COMFORT MEASURES AND MONITOR THE PATIENT.
--- NOTE | 2021-07-23 20:05 | NUR ---
HOSPICE NURSES NOTES PTS ON O2 15 LITERS NON REBREATHER MASK ,WILL CONTINUE TO MONITOR PTS.HOB ELEVATED AT ALL TIMES ALL NEEDS ATTENDED TOO.
--- NOTE | 2021-07-23 22:00 | NUR ---
RN NOTES NO SIGNIFICANT CHANGES NOTED; PT STILL ON 15L OF 02 VIA NRB MASK 02 SAT 88% AT THIS TIME. WILL CONTINUE TO ASSESS AND MONITOR THROUGHOUT THE SHIFT.
--- NOTE | 2021-07-24 | NUR ---
RN NOTES NO SIGNIFICANT CHANGES NOTED. WILL CONTINUE TO ASSESS AND MONITOR THROUGHOUT THE SHIFT.
--- NOTE | 2021-07-24 01:18 | NUR ---
0118hrs Pts noted with agonal breathing ,on 15 liters 02 non rebreather mask , unresponsive , Pts is hospice ,DNR comfort measure, Bp unable to read , pulse rate unable to felt . no respiration noted ,charge nurse michi at bedside pronounced at 0120 hrs.
--- NOTE | 2021-07-24 01:46 | NUR ---
Per primary RN, Carissa Zavaal from hospice wanted her to notify MD and Family. After notifying Ryne of patient's demise she stated that hospice suppose to notify MD and family . Called [facility] and spoke to Sally Echeverria; denied telling Carissa about notifying MD and family. Stated she already left a message to family and will call MD. Addendum: 07/24/21 at 0231 by HANK BALTAZAR RN 211 Sally called back to inform me that he spoke with family listed in face sheet Mayito and Anamaria. They do not have a mortuary yet; will keep in [facility]. Belongings with patient. 023 released to [facility] with belongings inside body bag
--- NOTE | 2021-07-24 02:00 | NUR ---
HOSPICE NURSES NOTES PLACE A CALL TO [facility] SPOKE TO MADELEINE Montiel WITH [facility] # ([phone]) SAID MAY RELEASE BODY PER DOCTORS ORDER (TO [facility]IL[facility]URTU[facility] OF CHOICE ), POST MORTEM CARE RENDERED .
--- NOTE | 2021-07-24 02:30 | NUR ---
LOFTER NURSE 0230HRS Released Body to [facility] with belongings inside body bag,Belongings with patient.
== END 2021-07-24 01:20 | DRG 871 ==
LOC: HOSPICE1 11:13
PROVIDERS: ADMIT Nurse Practitioner Acute Care; ATTEND Nurse Practitioner Acute Care
DX: A41.89 Other specified sepsis (principal); U07.1 COVID-19; J96.21 Acute and chronic respiratory failure with hypoxia; I21.A1 Myocardial infarction type 2; J12.82 Pneumonia due to coronavirus disease 2019; E43 Unspecified severe protein-calorie malnutrition; R65.21 Severe sepsis with septic shock; J44.0 Chronic obstructive pulmonary disease with (acute) lower respiratory infection; J90 Pleural effusion, not elsewhere classified; Z68.1 Body mass index [BMI] 19.9 or less, adult; R64 Cachexia; Z66 Do not resuscitate; Z51.5 Encounter for palliative care; I10 Essential (primary) hypertension; E11.9 Type 2 diabetes mellitus without complications; D64.9 Anemia, unspecified; F32.A Depression, unspecified; K46.9 Unspecified abdominal hernia without obstruction or gangrene; R19.00 Intra-abdominal and pelvic swelling, mass and lump, unspecified site; F17.200 Nicotine dependence, unspecified, uncomplicated
CPT/HCPCS: G0378; J2060; J2270